=== PATIENT | female | born 1980 | race Two or more races ===

== ENCOUNTER 2020-06-04 20:34 | Emergency (ER) | payer BC, SELFPAY ==
[2020-06-04] VITALS (8 sets, daily range): BP systolic 108–153; BP diastolic 64–85; PULSE 73–96; RESP 16–18; TEMP 36.6; O2SAT 97–99; BMI 30.9
--- NOTE | 2020-06-04 20:58 | PC.NURSE ---
PT TO ROOM #13 IN W/C. PT ALERT, RESPIRATIONS EASY, N/L. SKIN W/D. PT CHG INTO GOWN AND AWAITING FOR MD'S EVAL.
--- NOTE | 2020-06-04 21:01 | PC.NURSE ---
IN ROOM FOR EVAL.
--- NOTE | 2020-06-04 21:04 | ECG_ITS ---
Test Reason : DIZZINESS Blood Pressure : / mmHG Vent. Rate : 084 BPM Atrial Rate : 084 BPM P-R Int : 146 ms QRS Dur : 082 ms QT Int : 394 ms P-R-T Axes : 021 000 017 degrees QTc Int : 465 ms Normal sinus rhythm Normal ECG When compared with ECG of 04-SEP-2019 22:23, No significant change was found Referred By: Tonya Simon Electronically Signed By:DAVID RUVALCABA
--- NOTE | 2020-06-04 21:06 | ED.DIZZY ---
HPI - Dizziness General Chief Complaint: Dizziness Stated Complaint: DIZZINESS - Time Seen by Provider: 06/04/20 21:03 Source: patient Mode of arrival: ambulatory Limitations: no limitations History of Present Illness HPI Narrative: 40 yo female seen at [facility] [place] - on aspirin and Fe for anemia here with a couple of hours of weakness/dizziness, no overt headache no CP/SOB denies OB complaints has not had issues during with BP - has had dehydration - on arrival her BPs are > 140, FHT in 140-150s. no vaginal bleeding MD elicited complaint: lightheadedness Onset (ago): hour(s) (few) Timing: gradual onset Severity: mild Description: lightheadedness Context: change in body position History of similar symptoms: Yes Exacerbating factors: movement/ambulation and change in body position Relieving factors: remaining still Associated symptoms: weakness Related Data Allergies Allergy/AdvReac Type Severity Reaction Status Date / Time Iodinated Contrast Media Allergy Anaphylaxis Verified 06/04/20 20:46 omeprazole [From Prilosec] Allergy Redness of Verified 06/04/20 20:46 Skin seafood Allergy Anaphylaxis Verified 06/04/20 20:46 Review of Systems Review of Systems: Constitutional : No Weight loss, No Fever, No Chills, No Fatigue, No Malaise ENT/Mouth : No sore throat, No Rhinorrhea Eyes: No Eye Pain, No Swelling, No Redness Cardiovascular : No Chest Pain, No SOB, No Dyspnea on Exertion, No Orthopnea, No Edema, No Palpitations Respiratory : No Cough, No Sputum, No Wheezing Gastrointestinal : No Nausea, No Vomiting, No Diarrhea, No Constipation, No abdominal Pain, No Hematochezia, No Melena Genitourinary : No Dysuria, No Urinary Frequency, No Hematuria, Musculoskeletal : No joint pain, No Myalgias, No Joint Swelling Skin : No Skin Lesions, No rash Neuro : pos Weakness, No Numbness, pos Dizziness, No Headache Psych : No Anxiety/Panic, No Depression Heme/Lymph: No Bruising, No Bleeding,No Lymphadenopathy Endocrine : No Polyuria, No Polydipsia All other systems reviewed and are negative [facility] Past Medical History Attestation statement: The following information was validated with the patient. Medical History (Updated 06/04/20 @ 23:50 by Tonya Simon DO) Anemia Hernia Surgical History Bariatric surgery status Tubal ligation status Social History Social History (Updated 06/04/20 @ 21:19 by Tonya Simon DO) Smoking Status: Never smoker Use of substances other than those prescribed or required for medical reasons: No Advance Directives: No Advance Directives Information Provided: No Physical Exam Vital Signs: Vital Signs: Last Vital Signs Temp 98 F 06/04/20 20:37 Pulse 73 06/04/20 23:57 Resp 16 06/04/20 23:57 BP 108/64 06/04/20 23:57 Pulse Ox 98 06/04/20 23:57 Body Mass Index 30.9 Appearance: Alert. Oriented X3. No acute distress. Eyes: Pupils equal, round and reactive to light. ENT: Pharynx normal. Neck: Normal inspection. Neck supple. CVS: Normal heart rate and rhythm. Pulses normal. Respiratory: No respiratory distress. Breath sounds normal. Abdomen: Soft and nontender. Skin: Skin warm and dry. Normal skin color. Normal skin turgor. Extremities: No lower extremity edema. No calf ttp Neuro: Oriented X 3. No motor deficit. No sensory deficit. Course Course Course Narrative: given her BPs and feeling lightheaded though denies headache will monitor BPs frequently currently BP 123/75 on recheck will keep in ED x 2 hours and recheck on repeat consistently low BPs at this time no headache, normal LFTs, ?initial anxiety reaction trend seems inconsistent with preeclampsia - will ambulate patient and see how she feels if she feels better, stable for DC, no CP/SOB to suggest PE, O2 sats normal, UA consistent with mild dehydration, her Hgb 9.1 she needs to follow up with her OB and start taking her supplements vs Fe infusion given her prior bariatric surgery feels much better walking stable for DC MDM - Dizziness MDM Narrative Medical decision making narrative: 40 yo female 23 weeks here with feeling lightheaded and weak she is anemic no CP/SOB no headache - BP initially high but likely anxiety, will hydrate and obtain EKG/labs, reassess, frequent BP checks - obtain LFTs, no LE edema, clear lungs Lab Data Result diagrams: 06/04/20 21:39 06/04/20 21:39 Labs: Lab Results 06/04/20 06/04/20 06/04/20 Range/Units 21:31 21:31 21:39 WBC 8.8 (4.8-10.8) X10*3/uL RBC 3.02 L (4.20-5.50) X10*6/uL Hgb 9.1 L (12.0-16.0) g/dl Hct 27.2 L (37-47) % MCV 90.1 (80-98) fL MCH 30.1 (27.0-33.0) pg MCHC 33.5 (31.0-35.0) g/dl RDW 13.9 (11.0-16.0) % Plt Count 270 (160-400) X10*3/uL MPV 9.7 (9.4-12.3) fL Immature Gran % (Auto) 0.5 H (0.0-0.4) % Neut % (Auto) 61.0 (45-73) % Lymph % (Auto) 30.5 (20-40) % Mccone % (Auto) 5.8 (2-11) % Eos % (Auto) 1.9 (0-4) % Baso % (Auto) 0.3 (0-2) % Lymph # (Auto) 2.7 (1.2-4.9) X10*3/uL Mccone # (Auto) 0.5 (0.1-1.2) X10*3/uL Eos # (Auto) 0.2 (0.0-0.4) X10*3/uL Baso # (Auto) 0.0 (0.0-0.2) X10*3/uL Abs Immat Gran (auto) 0.04 H (0.00-0.03) X10*3/uL Absolute Neuts (auto) 5.3 (2.0-8.3) X10*3/uL Absolute Nucleated RBC 0.000 (0.0-0.012) X10*3/uL Nucleated RBC % (auto) 0.0 (0.0-0.2) /100WBC Hold Blue Top Sodium (135-145) mmol/L Potassium (3.3-5.1) mmol/L Chloride (96-108) mmol/L Carbon Dioxide (22-29) mmol/L Anion Gap (12-20) BUN (9-16) mg/dL Creatinine (0.5-1.4) mg/dL Estim Creat Clear Calc Estimated GFR Random Glucose (60-115) mg/dL Calcium (8.4-10.2) mg/dL Magnesium (1.6-2.6) mg/dL Total Bilirubin (0.0-1.0) mg/dL Direct Bilirubin (0.0-0.5) mg/dL AST (5-31) U/L ALT (0-31) U/L Alkaline Phosphatase (39-117) U/L B-Natriuretic Peptide (<100) pg/mL Total Protein (6.5-8.0) g/dL Albumin (3.5-5.0) g/dL Urine Color YELLOW Urine Appearance CLEAR Urine pH 6.0 (5.0-8.0) Ur Specific [place] 1.015 (1.005-1.025) Urine Protein TRACE (NEG-TRACE) MG/DL Urine Glucose (UA) NEG (NEG) MG/DL Urine Ketones 5 (NEG) MG/DL Urine Blood 3+ H (NEG) Urine Nitrite NEG (NEG) Ur Leukocyte Esterase TRACE H (NEG) Urine RBC 5-9 H (0) /HPF Urine WBC 0-2 (0-4) /HPF Ur Squamous Epith Cells 1+ /LPF Urine Bacteria 1+ /LPF COVID-19 (CORDELIA) Negative (Negative) COVID-19 Clin Com See Note 06/04/20 06/04/20 06/04/20 Range/Units 21:39 21:39 21:39 WBC (4.8-10.8) X10*3/uL RBC (4.20-5.50) X10*6/uL Hgb (12.0-16.0) g/dl Hct (37-47) % MCV (80-98) fL MCH (27.0-33.0) pg MCHC (31.0-35.0) g/dl RDW (11.0-16.0) % Plt Count (160-400) X10*3/uL MPV (9.4-12.3) fL Immature Gran % (Auto) (0.0-0.4) % Neut % (Auto) (45-73) % Lymph % (Auto) (20-40) % Mccone % (Auto) (2-11) % Eos % (Auto) (0-4) % Baso % (Auto) (0-2) % Lymph # (Auto) (1.2-4.9) X10*3/uL Mccone # (Auto) (0.1-1.2) X10*3/uL Eos # (Auto) (0.0-0.4) X10*3/uL Baso # (Auto) (0.0-0.2) X10*3/uL Abs Immat Gran (auto) (0.00-0.03) X10*3/uL Absolute Neuts (auto) (2.0-8.3) X10*3/uL Absolute Nucleated RBC (0.0-0.012) X10*3/uL Nucleated RBC % (auto) (0.0-0.2) /100WBC Hold Blue Top SEE NOTE Sodium 136 (135-145) mmol/L Potassium 3.8 (3.3-5.1) mmol/L Chloride 107 (96-108) mmol/L Carbon Dioxide 19 L (22-29) mmol/L Anion Gap 14 (12-20) BUN 5 L (9-16) mg/dL Creatinine 0.60 (0.5-1.4) mg/dL Estim Creat Clear Calc 126.2 Estimated GFR > 60 Random Glucose 94 (60-115) mg/dL Calcium 8.4 (8.4-10.2) mg/dL Magnesium 1.9 (1.6-2.6) mg/dL Total Bilirubin 0.2 (0.0-1.0) mg/dL Direct Bilirubin < 0.2 (0.0-0.5) mg/dL AST 15 (5-31) U/L ALT 9 (0-31) U/L Alkaline Phosphatase 95 (39-117) U/L B-Natriuretic Peptide 13 (<100) pg/mL Total Protein 6.5 (6.5-8.0) g/dL Albumin 3.3 L (3.5-5.0) g/dL Urine Color Urine Appearance Urine pH (5.0-8.0) Ur Specific [place] (1.005-1.025) Urine Protein (NEG-TRACE) MG/DL Urine Glucose (UA) (NEG) MG/DL Urine Ketones (NEG) MG/DL Urine Blood (NEG) Urine Nitrite (NEG) Ur Leukocyte Esterase (NEG) Urine RBC (0) /HPF Urine WBC (0-4) /HPF Ur Squamous Epith Cells /LPF Urine Bacteria /LPF COVID-19 (CORDELIA) (Negative) COVID-19 Clin Com ECG Data Attestation: I personally reviewed and interpreted this ECG as follows: ECG interpretation date: 06/04/20 ECG interpretation time: 22:10 Interpretation: Rate: 84 Rhythm: NSR [place]: normal Normal P waves. Normal RAMA. Normal QRS complex. ST T wave : no DOMINIC, normal qTC: normal prior studies: no acute ischemia The study has been interpreted contemporaneously by me. . Discharge Plan Discharge Clinical Impression: Acute dehydration, Iron deficiency anemia Patient Disposition: Home, Self-Care Instructions: Dehydration (ED), Iron Deficiency Anemia (ED) Additional Instructions: return to ED for any worsening symptoms or concerns YOUR HEMOGLOBIN IS 9.1 YOU NEED TO TAKE IRON AND BE MONITORED CLOSELY BY YOUR OB - given your prior bariatric surgery you might not be able to absorb Iron as well and might require IV infusion Stand Alone Forms: Work/School Release
--- NOTE | 2020-06-04 21:14 | PC.NURSE ---
FHT X 2 152 AND 160 PER DOPPLER.
[2020-06-04] MEDS: 0.9 % Sodium Chloride 1,000 ML 999 ML IVCONT (21:30)
--- NOTE | 2020-06-04 21:45 | PC.NURSE ---
IV PLACED TO LAC, LABS DRAWN TO LAB. COVID SWAB OBTAINED AND URINE SAMPLE SENT. PT DENIES ANY COMPLAINTS. PT AWAITING FOR EKG. WILL CONTINUE TO MONITOR PT.
[2020-06-04 21:53] LABS: MANUAL DIFF FLAG NO
[2020-06-04 21:54] LABS: Glucose Urine UA NEG (NEG); Leukocyte Esterase Urine TRACE (NEG); Nitrite Urine NEG (NEG); Specific Gravity - Urine 1.015 (1.005-1.025); UACC Culture Trigger YES; Urine Blood 3+ (NEG); Urine Ketones 5 MG/DL (NEG); Urine Protein TRACE MG/DL (NEG-TRACE)
[2020-06-04 21:55] LABS: Appearance Urine CLEAR; Color Urine YELLOW
[2020-06-04 21:56] LABS: Basophils Percent Auto 0.3 % (0-2); Eosinophils Absolute Auto 0.2 X10*3/uL (0.0-0.4); Eosinophils Percent Auto 1.9 % (0-4); Hematocrit 27.2 % (37-47); Hemoglobin 9.1 g/dl (12.0-16.0); Imm Gran Abs Auto 0.04 X10*3/uL (0.00-0.03); Imm Gran Pct Auto 0.5 % (0.0-0.4); Lymphocytes Absolute Auto 2.7 X10*3/uL (1.2-4.9); Lymphocytes Percent Auto 30.5 % (20-40); Mean Corpuscular HGB Conc 33.5 g/dl (31.0-35.0); Mean Corpuscular Hemoglobin 30.1 pg (27.0-33.0); Mean Corpuscular Volume 90.1 fL (80-98); Mean Platelet Volume 9.7 fL (9.4-12.3); Monocytes Absolute Auto 0.5 X10*3/uL (0.1-1.2); Monocytes Percent Auto 5.8 % (2-11); Neutrophils Absolute Auto 5.3 X10*3/uL (2.0-8.3); Platelet Count 270 X10*3/uL (160-400); Red Blood Count 3.02 X10*6/uL (4.20-5.50); Red Cell Distribution Width 13.9 % (11.0-16.0); White Blood Count 8.8 X10*3/uL (4.8-10.8)
[2020-06-04 22:00] LABS: Bacteria Urine 1+ /LPF; Squamous Epithelial Cell Urine 1+ /LPF; WBC Urine 0-2 /HPF (0-4)
[2020-06-04 22:04] LABS: COVID-19 Test Negative (Negative); IDNOW Serial# 9DD0AD1C
[2020-06-04 22:23] LABS: Alanine Aminotransferase 9 U/L (0-31); Albumin Level 3.3 g/dL (3.5-5.0); Alkaline Phosphatase 95 U/L (39-117); Anion Gap 14 (12-20); Aspartate Amino Transferase 15 U/L (5-31); Bilirubin Direct < 0.2 mg/dL (0.0-0.5); Bilirubin Total 0.2 mg/dL (0.0-1.0); Blood Urea Nitrogen 5 mg/dL (9-16); Calcium 8.4 mg/dL (8.4-10.2); Carbon Dioxide 19 mmol/L (22-29); Chloride 107 mmol/L (96-108); Creatinine Clr Calc Pharmacy 126.2; Estimated Glomerular Filt Rate > 60; Glucose Random 94 mg/dL (60-115); Magnesium 1.9 mg/dL (1.6-2.6); Potassium 3.8 mmol/L (3.3-5.1); Sodium 136 mmol/L (135-145); Total Protein 6.5 g/dL (6.5-8.0)
[2020-06-04 22:24] LABS: B Type Natriuretic Peptide 13 pg/mL (<100)
== END 2020-06-05 00:05 | disposition home or self-care (01) ==
PROVIDERS: Emergency Provider Emergency Medicine; PCP Family Medicine
DX: E86.0 Dehydration (principal); D50.9 Iron deficiency anemia, unspecified; R42 Dizziness and giddiness; Z20.822 Contact with and (suspected) exposure to COVID-19
CPT/HCPCS: 36415; 80048; 80076; 81001; 81003; 83735; 83880; 85025; 87086; 87635; 93005; 96360; 99283; 99284

== ENCOUNTER 2022-05-22 14:35 | Outpatient (REF) | payer BC, SELFPAY ==
--- NOTE | ~2022-05-22 | US_ITS ---
EXAMINATION: US PELVIS CLINICAL INFORMATION: Abnormal uterine bleeding. COMPARISON: None TECHNIQUE: Ultrasound of the pelvis is performed using both transabdominal and transvaginal transducers along with Doppler. Transvaginal imaging is performed due to inadequate visualization transabdominally. FINDINGS: Uterus: The uterus is anteverted, anteflexed and measures 10.3 cm in length, 2.3 cm AP and 5.3 cm in transverse dimension. The double wall endometrial thickness is 1.4 cm. The uterus is smooth in contour and has normal myometrial echogenicity. No visible fibroid There are small nabothian cysts seen in the cervix. Adnexa: Both ovaries are visualized. There is normal color flow to the adnexa. There is no ovarian torsion. There is no pelvic ascites or fluid collection. Right ovary measures 4.0 x 1.8 x 2.4 cm and volume 10.1 mL. There is a dominant follicle measuring 2.1 x 1.7 x 1.7 cm and corpus luteal cyst measuring 1.2 x 1.1 x 1.3 cm. There is normal arterial and venous flow seen to the right ovary. Left ovary measures 5.8 x 3.9 x 4.4 cm and volume 58.1 mL. There is anechoic cyst with thin septation measuring 5.1 x 3.6 x 4.1 cm. Normal arterial and venous flow seen. There is no free fluid in the cul-de-sac. US/US pelvic and transvaginal IMPRESSION: Unremarkable uterus. Small nabothian cysts in the cervix. Small corpus luteal cyst right ovary. Complex cyst left ovary.
== END 2022-05-22 14:36 | disposition home or self-care (01) ==
LOC: HO.US 14:35
PROVIDERS: PCP Family Medicine; Visit Provider Family Medicine
DX: N92.6 Irregular menstruation, unspecified (principal)
CPT/HCPCS: 76830; 76856

== ENCOUNTER 2022-12-07 16:35 | Outpatient (REF) | payer BC, SELFPAY ==
[2022-12-07 17:43] LABS: MANUAL DIFF FLAG NO
[2022-12-07 18:01] LABS: Basophils Absolute Auto 0.1 X10*3/uL (0.0-0.2); Basophils Percent Auto 0.9 % (0-2); Eosinophils Absolute Auto 0.3 X10*3/uL (0.0-0.4); Hemoglobin 11.1 g/dl (12.0-16.0); Imm Gran Abs Auto 0.02 X10*3/uL (0.00-0.03); Imm Gran Pct Auto 0.3 % (0.0-0.4); Lymphocytes Absolute Auto 2.8 X10*3/uL (1.2-4.9); Mean Corpuscular HGB Conc 32.6 g/dl (31.0-35.0); Mean Corpuscular Hemoglobin 29.3 pg (27.0-33.0); Mean Corpuscular Volume 89.7 fL (80.0-98.0); Mean Platelet Volume 10.7 fL (9.4-12.3); Monocytes Absolute Auto 0.5 X10*3/uL (0.1-1.2); Monocytes Percent Auto 6.5 % (2-11); Neutrophils Absolute Auto 3.4 x10*3/uL (2.0-8.3); Neutrophils Percent Auto 48.3 % (45-73); Platelet Count 286 X10*3/uL (160-400); Red Blood Count 3.79 X10*6/uL (4.20-5.50); Red Cell Distribution Width 14.3 % (11.0-16.0); White Blood Count 7.1 X10*3/uL (4.8-10.8)
[2022-12-08 01:43] LABS: Alanine Aminotransferase 9 U/L (0-31); Albumin Level 4.1 g/dL (3.5-5.0); Alkaline Phosphatase 79 U/L (39-117); Anion Gap 10 (12-20); Aspartate Amino Transferase 15 U/L (5-31); Bilirubin Total < 0.1 mg/dL (0.0-1.0); Blood Urea Nitrogen 9 mg/dL (9-16); Calcium 8.7 mg/dL (8.4-10.2); Carbon Dioxide 25 mmol/L (22-29); Chloride 109 mmol/L (96-108); Estimated Glomerular Filt Rate > 60; Glucose Random 116 mg/dL (60-115); Potassium 4.3 mmol/L (3.3-5.1); Sodium 140 mmol/L (135-145); Total Protein 7.5 g/dL (6.5-8.0)
[2022-12-08 02:19] LABS: Folate 12.4 ng/mL (> or = 4.0); Vitamin B12 414 pg/mL (200-900)
== END 2022-12-07 16:36 | disposition home or self-care (01) ==
LOC: HO.HHCL 16:35
PROVIDERS: Visit Provider Family Medicine
DX: R41.3 Other amnesia (principal)
CPT/HCPCS: 36415; 80053; 82607; 82746; 85025

== ENCOUNTER 2023-01-05 15:53 | Outpatient (REF) | payer BC, SELFPAY ==
--- NOTE | ~2023-01-05 | MM_ITS ---
EXAMINATION: MM SCREENING DIGITAL BREAST TOMOSYNTHESIS, BILATERAL WITH BREAST IMPLANTS CLINICAL INFORMATION: Screening. Asymptomatic. COMPARISON: Mammography: This is a baseline mammogram. TECHNIQUE: Digital mammography is performed in craniocaudal and mediolateral oblique views along with computer-aided detection (CAD). Digital breast tomosynthesis is performed in implant-displaced craniocaudal and implant-displaced mediolateral oblique views along with computer-aided detection (CAD). Synthesized 2D images are generated from the tomosynthesis. FINDINGS: There are scattered areas of fibroglandular density (ACR BI-RADS breast composition Category b). There are bilateral, mammographically intact, retropectoral silicone breast implants. There are no significant masses, abnormal calcifications, or other abnormalities. MM/MM tomosynthesis screen imp BI IMPRESSION: There are no significant changes from prior study. ASSESSMENT: BI-RADS BI-RADS 1 - Negative RECOMMENDATION: Routine annual mammography screening. 1 year F/U This patient's information was entered into a reminder system with a target due date for their next mammogram.
== END 2023-01-05 15:54 | disposition home or self-care (01) ==
LOC: HO.MAMMO 15:53
PROVIDERS: PCP Family Medicine; Visit Provider Family Medicine
DX: Z12.31 Encounter for screening mammogram for malignant neoplasm of breast (principal)
CPT/HCPCS: 77063; 77067

== ENCOUNTER → 2023-01-05 16:30 | Outpatient (BNV) | payer BC, SELFPAY | PROVIDERS: PCP Family Medicine; Visit Provider Radiology Diagnostic Radiology | DX: Z12.31 Encounter for screening mammogram for malignant neoplasm of breast (principal) | CPT/HCPCS: 77063; 77067 ==

== ENCOUNTER 2023-01-11 13:33 | Outpatient (AMB) | payer BC, SELFPAY ==
[2023-01-11 13:46] VITALS: BP 135/85; PULSE 80; BMI 30.9
--- NOTE | 2023-01-11 13:46 | A.OFFVIS_ITS ---
Intake Vital Signs 01/11/23 13:46 Height 5 ft 4 in Weight 179 lb 14.355 oz BMI 30.9 BP 135/85 Blood Pressure Location Lt brachial Position Sitting Pulse 80 Intake Visit Reasons: [place] screening Intake Note: Yanely presents in office as a new.patient for a colonoscopy screening PT CC: pt reports having abdominal pain , bloating , constipation , Heartburn , 1st colo pt denies any other GI Issues Telecommunications Support Required: No Accompanied by: Self / Same As Patient Allergies Iodinated Contrast Media Allergy (Verified 01/11/23 13:47) Anaphylaxis omeprazole [From Prilosec] Allergy (Verified 01/11/23 13:47) Redness of Skin seafood Allergy (Verified 01/11/23 13:47) Anaphylaxis HPI [place] screening HPI Details 42 year old? female here today for pre c olonoscopy screening.? Patient was sent to us by her PCP.? This is her first colonoscopy screening.? Patient denies any gastrointestinal symptoms in the past or at present.? Patient reports long history of constipation uses Dulcolax tablet once a week. Only goes every several days. Denies any personal or family history of gastrointestinal disease, colon polyps, or cancer.? Denies history of difficulty with sedation or anesthesia in the past.? Patient does have a history of sleep apnea prior to losing her weight after laparoscopic sleeve gastrectomy. Patient lost over 50 lb and no longer needed to use CPAP machine. Denies any history of cardiac, r enal, pulmonary, or hepatic disease.?? No history of infectious? diseases like hepatitis A, B, C, HIV or tuberculosis.? Patient is not on any anticoagulation therapy. [facility] Medical History (Updated 06/06/20 @ 00:01 by Bear Roldan) Anemia Hernia Surgical History (Updated 01/11/23 @ 14:06 by Magaly Patterson [facility]) S/P laparoscopic sleeve gastrectomy History of abdominoplasty Tubal ligation status Bariatric surgery status Family History (Updated 01/11/23 @ 13:50 by Giovani Malloy) Mother HTN (hypertension) High cholesterol Social History (Updated 01/11/23 @ 13:50 by Giovani Malloy) Household Members: Family Alcohol intake: never Patient Tobacco Use Status: Current everyday Tobacco user Tobacco use type: Cigarette Cigarette Packs Per Day: 1 Cigarettes Per Day: 10 Years Smoked: 30yrs Smoked in Last 30 Days: Yes Use of substances other than those prescribed or required for medical reasons: No Review of Systems Const Denies weight gain and Denies weight loss ENT Reports no additional complaints, Denies dysphagia and Denies odynophagia Card Reports no additional complaints Resp Reports no additional complaints GI Denies abdominal pain, Denies belching, Denies melena, Denies bloating, Reports constipation, Denies dysphagia, Denies excessive flatus, Denies dyspepsia, Reports heartburn, Denies diarrhea, Denies loose stools, Denies nausea, Denies odynophagia and Denies vomiting Musc Reports no additional complaints Neuro Reports no additional complaints Psych Reports no additional complaints Endo Reports no additional complaints Physical Exam Vital Signs: Last Vital Signs Pulse 80 01/11/23 13:46 BP 135/85 01/11/23 13:46 BMI result Body Mass Index 30.9 Const General: healthy appearing, no acute distress and well developed Nutritional Appearance: obese Orientation/consciousness: patient oriented x3 HEENT Head: Yes normal to inspection, Yes normocephalic and Yes atraumatic Face and sinus: Yes normal facial exam Mouth: Normal oral and palatal mucosa present Throat: Yes posterior oropharynx normal, Yes tonsils normal and Yes uvula midline Eyes General: appearance normal, both eyes and all related structures Neck Neck: Yes normal visual inspection, Yes full ROM and Yes trachea midline Thyroid: Thyroid normal Resp Effort & Inspection: normal respiratory effort, able to speak in complete sentences, no tracheal deviation and symmetric chest movement Auscultation: clear to auscultation bilaterally Cardio Rate: regular rate Heart sounds: S1 normal heart sound present and S2 normal heart sound present GI Inspection: Yes normal to inspection, No distended and Yes obesity Palpation (GI): Soft to palpation, not firm, nontender and No hepatosplenomegaly present Auscultation: normal bowel sounds General: Yes no CVA tenderness Back/Spine/Pelvis Back: no CVA tenderness Skin General skin exam: elasticity normal, turgor normal and dry skin Neuro General: patient oriented x3 Psych Appearance: grossly normal Mental Status: mental status grossly normal Assessment & Plan Assessment & Plan (1) Screen for colon cancer: Code(s): Z12.11 - Encounter for screening for malignant neoplasm of colon Plan: Patient denies any GI, cardiac or respiratory symptoms.? Denies any issues with anesthesia in the past.? No history infectious diseases in the past or present.? Not on any anticoagulation therapy.? No family or personal history of colon cancer or polyps.? Patient denies melena, hematochezia, unintentional weight loss or ribbon like stools.? Discussed at length the pre-procedure,? prep, diet & medications as well as what to expect prior, during and after the procedure.?? Stressed the importance of good bowel prep. ?Recommended the use of Vaseline or Calmoseptine OTC & baby wipes with bowel movements to promote comfort.? ?Patient verbalizes understanding and agrees to plan of care.? She was given the opportunity to ask questions and all questions answered.? We will see her after the procedure.? Medications: New bisacodyl (Dulcolax (bisacodyl)) 10 mg (2 x 5 mg) PO BEDTIME 180 tabs 4RF polyethylene glycol 3350 (Miralax) As directed by gastroenterology department at [facility] 238 grams PO ONCE 238 grams 0RF Z12.11 - Encounter for screening for malignant neoplasm of colon Coding Level of Care Code New Pt Level 3 (03947) Diagnoses Screen for colon cancer Z12.11 Time Spent (min) 40 Comment 30 minutes spent with patient and additional 10 minutes spent her records
== END 2023-01-11 14:27 | disposition home or self-care (01) ==
PROVIDERS: PCP Family Medicine; Visit Provider Nurse Practitioner Family
DX: Z12.11 Encounter for screening for malignant neoplasm of colon (principal); Z01.818 Encounter for other preprocedural examination
CPT/HCPCS: S0285

== ENCOUNTER → 2023-01-11 13:33 | Outpatient (BNVA) | payer BC, SELFPAY | PROVIDERS: PCP Family Medicine; Visit Provider Nurse Practitioner Family ==

== ENCOUNTER 2023-05-05 08:57 | Day surgery (SDC) | payer BC, SELFPAY ==
--- NOTE | 2023-05-04 10:33 | HO.ANESPROP2 ---
Documented by User: Coby Landers NP 05/04/23 10:33 HPI - Anesthesia Eval Consult details Narrative: 43yo F for Colonoscopy [facility] Past Medical History Medical History (Updated 06/06/20 @ 00:01 by Background Daaniya) Anemia Hernia Family History Family History (Updated 01/11/23 @ 13:50 by Giovani Malloy) Mother HTN (hypertension) High cholesterol Surgical History Surgical History (Updated 05/05/23 @ 09:26 by Dejah Matthews RN) Hx of breast reduction, elective S/P laparoscopic sleeve gastrectomy History of abdominoplasty Tubal ligation status Bariatric surgery status Social History Social History (Updated 01/11/23 @ 13:50 by Giovani Malloy) Household Members: Family Alcohol intake: never Patient Tobacco Use Status: Current everyday Tobacco user Tobacco use type: Cigarette Cigarette Packs Per Day: 1 Cigarettes Per Day: 10 Years Smoked: 30yrs Are you DNR?: No Advance Directives: No Advance Directives Information Provided: Yes Nutrition Risks: No Nutritional Risk Meds Allergies Allergy/AdvReac Type Severity Reaction Status Date / Time Iodinated Contrast Media Allergy Anaphylaxis Verified 01/11/23 13:47 omeprazole [From Prilosec] Allergy Redness of Verified 01/11/23 13:47 Skin seafood Allergy Anaphylaxis Verified 01/11/23 13:47 Home Medications Medication Instructions Recorded Confirmed Last Taken Type No Known Home Meds 05/05/23 05/05/23 Unknown History Exam Pertinent Lab Results Pertinent Lab Results: Laboratory Tests 12/07/22 16:41 WBC 7.1 Hgb 11.1 L Hct 34.0 L Plt Count 286 Sodium 140 Potassium 4.3 Chloride 109 H Carbon Dioxide 25 BUN 9 Creatinine 1.00 Assessment and Plan Assessment Anesthesia Assessment: Chart Reviewed Documented by User: Odilia Santana MD 05/05/23 09:39 [facility] Past Medical History Medical History (Updated 06/06/20 @ 00:01 by Background Daaniya) Anemia Hernia Family History Family History (Updated 01/11/23 @ 13:50 by Giovani Malloy) Mother HTN (hypertension) High cholesterol Family history of problems with anesthesia: No Surgical History Surgical History (Updated 05/05/23 @ 09:26 by Dejah Matthews RN) Hx of breast reduction, elective S/P laparoscopic sleeve gastrectomy History of abdominoplasty Tubal ligation status Bariatric surgery status History of Problems with Anesthesia: No Social History Social History (Updated 01/11/23 @ 13:50 by Giovani Malloy) Household Members: Family Alcohol intake: never Patient Tobacco Use Status: Current everyday Tobacco user Tobacco use type: Cigarette Cigarette Packs Per Day: 1 Cigarettes Per Day: 10 Years Smoked: 30yrs Are you DNR?: No Advance Directives: No Advance Directives Information Provided: Yes Nutrition Risks: No Nutritional Risk Meds Allergies Allergy/AdvReac Type Severity Reaction Status Date / Time Iodinated Contrast Media Allergy Anaphylaxis Verified 01/11/23 13:47 omeprazole [From Prilosec] Allergy Redness of Verified 01/11/23 13:47 Skin seafood Allergy Anaphylaxis Verified 01/11/23 13:47 Home Medications Medication Instructions Recorded Confirmed Last Taken Type No Known Home Meds 05/05/23 05/05/23 Unknown History Exam Airway Mallampati Class: II (mulitple caps) TM Dist: >3cm Neck ROM: Full Heart: rrr Lungs: cta Assessment and Plan Assessment Anesthesia Assessment: Anesthesia Plan Discussed Final Anesthetic Review Family History of Problems with Anesthesia: No History of Problems with Anesthesia: No NPO: Yes ASA Class: II Final Preanesthetic Review: No Changes in Pt Med Stat, Meds/Allgs Chart Reviewed and Consent Obtained/Reviewed Patient Risk: Intermediate Procedure Risk: Intermediate Anesthetic Plan Anesthetic Plan: MAC: Disposition: Standard PACU
[2023-05-05 09:00] VITALS: BP 116/80; PULSE 85; RESP 20; TEMP 36.3; O2SAT 99; BMI 30.1
[2023-05-05] MEDS: Lactated Ringers 1,000 ML 100 ML IVCONT (09:24)
--- NOTE | 2023-05-05 09:35 | MHC.SHP ---
Pre-Procedural Eval Section A Date of Service: 05/05/23 Section B Chief Complaint: screening Relevant Family History (Specify if Yes): No Relevant Social History: Tobacco Use Present Medications: see Short Stay Collaborative assessment Medical History: No relevant PMH History of Previous Operations: Relevant previous surgery/procedure and date(s) (Hx of breast reduction, elective S/P laparoscopic sleeve gastrectomy History of abdominoplasty Tubal ligation status Bariatric surgery status) Allergies: Allergies Allergy/AdvReac Type Severity Reaction Status Date / Time Iodinated Contrast Media Allergy Anaphylaxis Verified 01/11/23 13:47 omeprazole [From Prilosec] Allergy Redness of Verified 01/11/23 13:47 Skin seafood Allergy Anaphylaxis Verified 01/11/23 13:47 Review of Systems Sugical H&P ROS: Negative: Constitution, Cardiovascular, Respiratory, Neurological, Psychiatric, Hem-Onc, Allergic/Immunologic, Gastrointestinal, Genitourinary, Musculoskeletal, Integumentary, Endocrine and Eyes/Ears/Nose/Throat Exam Surgical H&P Exam: Normal: HEENT, Normal: Heart, Normal: Lungs, Normal: Extremities, Normal: Abdomen, Normal: Skin and Normal: Neurological Plan Diagnosis/Plan: Unchanged I have reviewed the history and physical and performed a pertinent physical examination on my patient. No changes have occurred unless specified. Time Spent With Patient Time: Total time managing care of this patient today ____ minutes.
--- NOTE | 2023-05-05 10:09 | W.PM.OPN ---
Operative Note Operative Note Date of Service: 05/05/23 Narrative: Operative Information Procedure Description: Colonoscopy Indication: screening Anesthesia: MAC COLONOSCOPY Instrument: Olympus variable stiffness pediatric scope 190L Colonoscopy Monitoring: Vital signs and clinical assessment, continuous EKG monitoring, Pulse oximetry, Carbon Dioxide monitoring and blood pressure monitoring were done throughout the procedure. Colon withdrawal time was 8 minutes. Procedure: The patient was placed in the left lateral decubitis position and pre-procedure medications were administered. After a digital rectal examination of the ano-rectum, the video colonoscope was inserted into the rectum and advanced through the colon to the cecum/TI. The colonoscope was slowly withdrawn in a retrograde panoramic fashion and the colon mucosa was carefully examined including a retroflexed view of the rectum. Findings and interventions are described below. Procedure Difficulty: easy Findings: Terminal Ileum-normal Cecum:normal Ascending Colon: normal Transverse Colon -normal Descending Colon:normal Sigmoid Colon: normal Rectum: Retroflexion with small to medium internal hemorrhoids, grade I, 4-6 mm sessile polyps x 2 removed with cold snare Anorectum - normal Colon preparation: [place] Bowel Preparation Scale Right colon; 2 Transverse colon: 3 Left colon; 3 (0 = Unprepared colon segment with mucosa not seen due to solid stool that cannot be cleared. 1 = Portion of mucosa of the colon segment seen, but other areas of the colon segment not well seen due to staining, residual stool and/or opaque liquid. 2 = Minor amount of residual staining, small fragments of stool and/or opaque liquid, but mucosa of colon segment seen well. 3 = Entire mucosa of colon segment seen well with no residual staining, small fragments of stool or opaque liquid) Impression and Post Procedure Diagnosis: polyps internal hemorrhoids Plan: High fiber diet leaflet Avoid straining at stool, epsom salts and sitz bath, anusol supps or cream Repeat Colonoscopy in 5-7 years if adenomatous polyps, 10 yrs if hyperplastic or earlier if clinically indicated Above findings were reviewed with the patient and relevant handouts were provided if indicated.
[2023-05-05 10:41] VITALS: BP 111/70; PULSE 72; RESP 16; TEMP 36.2; O2SAT 97
[2023-05-05 10:56] VITALS: BP 116/68; PULSE 68; RESP 16; O2SAT 98
[2023-05-05 11:10] VITALS: BP 119/83; PULSE 84; RESP 16; TEMP 36.1; O2SAT 100
== END 2023-05-05 11:37 | disposition home or self-care (01) ==
PROVIDERS: PCP Family Medicine; Visit Provider Internal Medicine Gastroenterology
PROC: 0DJD8ZZ Inspection of Lower Intestinal Tract, Via Natural or Artificial Opening Endoscopic (ICD-10-PCS; CPT 45378; principal; 2023-05-05 10:40)
DX: Z12.11 Encounter for screening for malignant neoplasm of colon (principal); K62.1 Rectal polyp; K64.0 First degree hemorrhoids; K59.00 Constipation, unspecified; D64.9 Anemia, unspecified; K46.9 Unspecified abdominal hernia without obstruction or gangrene; Z79.899 Other long term (current) drug therapy; Z91.041 Radiographic dye allergy status; Z88.8 Allergy status to other drugs, medicaments and biological substances; Z98.51 Tubal ligation status; Z98.84 Bariatric surgery status; Z98.890 Other specified postprocedural states; F17.210 Nicotine dependence, cigarettes, uncomplicated
CPT/HCPCS: 45385; 88305; J2704

== ENCOUNTER → 2023-05-05 08:57 | Outpatient (BNV) | payer BC, SELFPAY | PROVIDERS: PCP Family Medicine; Visit Provider Internal Medicine Gastroenterology | DX: Z12.11 Encounter for screening for malignant neoplasm of colon (principal); K64.0 First degree hemorrhoids; D12.8 Benign neoplasm of rectum | CPT/HCPCS: 45385 ==

== ENCOUNTER 2023-11-24 14:23 | Outpatient (REF) | payer BC, SELFPAY ==
[2023-11-24 15:25] LABS: MANUAL DIFF FLAG NO
[2023-11-24 15:49] LABS: Basophils Absolute Auto 0.1 X10*3/uL (0.0-0.2); Basophils Percent Auto 0.8 % (0-2); Eosinophils Absolute Auto 0.3 X10*3/uL (0.0-0.4); Eosinophils Percent Auto 3.5 % (0-4); Hemoglobin 12.5 g/dl (12.0-16.0); Imm Gran Abs Auto 0.02 X10*3/uL (0.00-0.03); Imm Gran Pct Auto 0.3 % (0.0-0.4); Lymphocytes Absolute Auto 2.2 X10*3/uL (1.2-4.9); Lymphocytes Percent Auto 30.3 % (20-40); Mean Corpuscular HGB Conc 33.8 g/dl (31.0-35.0); Mean Corpuscular Hemoglobin 29.9 pg (27.0-33.0); Mean Corpuscular Volume 88.5 fL (80.0-98.0); Mean Platelet Volume 10.1 fL (9.4-12.3); Monocytes Absolute Auto 0.3 X10*3/uL (0.1-1.2); Monocytes Percent Auto 3.8 % (2-11); Neutrophils Absolute Auto 4.4 x10*3/uL (2.0-8.3); Neutrophils Percent Auto 61.3 % (45-73); Platelet Count 299 X10*3/uL (160-400); Red Blood Count 4.18 X10*6/uL (4.20-5.50); Red Cell Distribution Width 13.3 % (11.0-16.0); White Blood Count 7.1 X10*3/uL (4.8-10.8)
[2023-11-24 15:59] LABS: Estimated Average Glucose 105 mg/dL; Hemoglobin A1c % 5.3 % (<6.0)
[2023-11-24 16:23] LABS: Anion Gap 10 (12-20); Blood Urea Nitrogen 4 mg/dL (9-16); C Reactive Protein 0.52 mg/dL (< or = 0.50); Calcium 9.5 mg/dL (8.4-10.2); Carbon Dioxide 27 mmol/L (22-29); Chloride 106 mmol/L (96-108); Cholesterol 196 mg/dL (<200); Estimated Glomerular Filt Rate > 60; Glucose Random 90 mg/dL (60-115); HDL Cholesterol 40 mg/dL (>40); Iron 58 mcg/dL (30-160); LDL Cholesterol Calculated 126 mg/dL (<100); Percent Iron Saturation 22 % (15-50); Potassium 3.9 mmol/L (3.3-5.1); Sodium 139 mmol/L (135-145); Total Iron Binding Capacity 262 mcg/dL (228-428); Triglycerides 152 mg/dL (<150); Unsaturated Iron Binding 204 ug/dL
[2023-11-24 16:40] LABS: Ferritin 23 ng/mL (10-250); Insulin 7 uU/mL (2-29); TSH reflex Free T4 1.23 uIU/mL (0.32-4.0); Vitamin D 25-OH Total 28.6 ng/mL (>30)
[2023-11-24 16:52] LABS: Folate 9.2 ng/mL (> or = 4.0); Vitamin B12 410 pg/mL (200-900)
[2023-11-27 18:03] LABS: Zinc 66 mcg/dL (60-130)
[2023-11-29 21:03] LABS: Vitamin A 43 mcg/dL (38-98)
[2023-12-01 05:14] LABS: Vitamin B1 7 nmol/L (8-30)
== END 2023-11-24 14:24 | disposition home or self-care (01) ==
LOC: HO.LAB 14:23
PROVIDERS: PCP Family Medicine; Visit Provider Physician Assistant Surgical
DX: Z13.1 Encounter for screening for diabetes mellitus (principal); E66.9 Obesity, unspecified; D64.9 Anemia, unspecified; Z98.84 Bariatric surgery status
CPT/HCPCS: 36415; 80048; 80061; 82306; 82607; 82728; 82746; 83036; 83525; 83540; 84425; 84443; 84590; 84630; 85025; 86140

== ENCOUNTER 2023-11-24 14:23 | Outpatient (AMB) | payer BC, SELFPAY ==
--- NOTE | 2023-11-24 14:27 | A.OFFVIS_ITS ---
VS Expanded 11/24/23 14:38 BP 134/77 Blood Pressure Location Rt brachial Blood Pressure Position Sitting Pulse 75 Pulse Source Pulse Oximeter Temp 98.1 F Temperature Source Temporal Artery Scan Pulse Oximetry 98 Oxygen Delivery Method Room Air Height 5 ft 4 in Weight 177 lb 9.6 oz BMI 30.5 Body Fat % 39.1 Body Fat Mass 69.4 Fat Free Mass 108.0 Visceral Fat Rating 8.0 Body Water % 43.5 Body Water Mass 77.2 Muscle Mass/Score 102.6 Basal Metabolic Rate/Score 1,493 Intake Visit Reasons: (OV) PO LSG 2016 Prison Classification Counselor Required: No Allergies Iodinated Contrast Media Allergy (Verified 11/24/23 14:31) Anaphylaxis omeprazole [From Prilosec] Allergy (Verified 11/24/23 14:31) Redness of Skin seafood Allergy (Verified 11/24/23 14:31) Anaphylaxis Medication List - Last Reconciled 11/24/23 by ENMA Rader HPI Comments Details: Patient is a pleasant 43-year-old female who returns to the office today in follow-up. 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 She was last seen in the office in November 2017. At that time, her weight was 140.4 lb with a BMI of 24.1. Weight today is 177.6 lb with a BMI of 30.5. She states that she did not come to the office for several years due to COVID. She did experience a with twins, giving to 2 healthy babies approximately 3 years ago. She has had difficulty with weight loss since then. She was started on a low-dose of Wegovy but has not noticed any significant improvement. No MVI or nayeli +D. States her goal is to reach 140 pounds Meal plan: none Exercise plan: none, treadmill, bike and elliptical and weights at home. [facility] Medical History Delivery with history of Anemia Hernia Surgical History Hx of breast reduction, elective S/P laparoscopic sleeve gastrectomy History of abdominoplasty Tubal ligation status Bariatric surgery status Family History Mother HTN (hypertension) High cholesterol Social History Household Members: Family Alcohol intake: never Patient Tobacco Use Status: Current everyday Tobacco user Tobacco use type: Cigarette Cigarette Packs Per Day: 1 Cigarettes Per Day: 10 Years Smoked: 30yrs Physical Exam Vital Signs: Last Vital Signs Temp 98.1 F 11/24/23 14:38 Pulse 75 11/24/23 14:38 BP 134/77 11/24/23 14:38 Pulse Ox 98 11/24/23 14:38 Oxygen Delivery Method Room Air 11/24/23 14:38 BMI result Body Mass Index 30.5 Const General: healthy appearing and no acute distress Resp Effort & Inspection: normal respiratory effort Auscultation: clear to auscultation bilaterally Cardio Rate: regular rate Rhythm: regular rhythm GI Auscultation: normal bowel sounds Extrem General: Yes normal to inspection Assessment & Plan Assessment & Plan (1) Obesity (BMI 30-39.9): Code(s): E66.9 - Obesity, unspecified Category: Medical Plan: Patient was given a paper with a link to the [employer] niles and she will create her meal plan. We discussed the importance of adhering to the meal plan as well as exercising. She has multiple cardiovascular machines at home including stationary bike, treadmill, elliptical she was encouraged to increase exercise with a goal of burning 300 calories per day. We will additionally check postop labs. We talked about adding a multivitamin, however given no recent labs I will await further recommendations as she does report a history of iron deficiency. Additionally, I told her to stop the Wegovy injections. Orders: Orders Complete Blood Count Auto Diff Today E66.9 - Obesity, unspecified, Z98.84 - B ariatric surgery status Lipid Panel Today E66.9 - Obesity, unspecified, Z98.84 - Bariatric surgery status Vitamin B12 and Folate Today E66.9 - Obesity, unspecified, Z98.84 - Bariatric surgery status TSH reflex Free T4 Today E66.9 - Obesity, unspecified, Z98.84 - Bariatric surgery status Ferritin Today E66.9 - Obesity, unspecified, Z98.84 - Bariatric surgery status Basic Metabolic Panel Today E66.9 - Obesity, unspecified, Z98.84 - Bariatric surgery status Insulin Today E66.9 - Obesity, unspecified, Z98.84 - Bariatric surgery status Hemoglobin A1c Today E66.9 - Obesity, unspecified, Z98.84 - Bariatric surgery status IRON PROFILE Today E66.9 - Obesity, unspecified, Z98.84 - Bariatric surgery status Zinc Today E66.9 - Obesity, unspecified, Z98.84 - Bariatric surgery status C Reactive Protein Today E66.9 - Obesity, unspecified, Z98.84 - Bariatric surgery status Vitamin B1 Today E66.9 - Obesity, unspecified, Z98.84 - Bariatric surgery status Vitamin A Today E66.9 - Obesity, unspecified, Z98.84 - Bariatric surgery status Vitamin D 25-OH Total Today E66.9 - Obesity, unspecified, Z98.84 - Bariatric surgery status
[2023-11-24 14:38] VITALS: BP 134/77; PULSE 75; TEMP 36.7; O2SAT 98; BMI 30.5
== END 2023-11-24 15:10 | disposition home or self-care (01) ==
PROVIDERS: PCP Family Medicine; Visit Provider Physician Assistant Surgical
DX: E66.9 Obesity, unspecified (principal); Z68.30 Body mass index [BMI] 30.0-30.9, adult
CPT/HCPCS: 99214

== ENCOUNTER 2024-01-03 11:55 | Outpatient (AMB) | payer BC, SELFPAY ==
--- NOTE | 2024-01-03 11:23 | A.OFFVIS_ITS ---
VS Expanded 01/03/24 11:41 Height 5 ft 4 in Weight 174 lb 4 oz BMI 29.9 Intake Visit Reasons: (TV) PO LSG 2016 Order Puller Required: No Allergies Iodinated Contrast Media Allergy (Verified 11/24/23 14:31) Anaphylaxis omeprazole [From Prilosec] Allergy (Verified 11/24/23 14:31) Redness of Skin seafood Allergy (Verified 11/24/23 14:31) Anaphylaxis Medication List - Last Reconciled 01/03/24 by ENMA Rader cholecalciferol (vitamin D3) 125 mcg PO DAILY 90 days thiamine HCl (vitamin B1) 100 mg PO DAILY 90 days HPI Comments Details: Patient is a pleasant 43-year-old female who returns to the office today in follow-up. 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 She had not been seen in the office since November 2017 and then most recently last month. She was restarted on a meal plan and exercise plan. Weight today is 174.4 lb with a BMI of 29.9. She states that she did not come to the office for several years due to COVID. She did experience a with twins, giving to 2 healthy babies approximately 3 years ago. She has had difficulty with weight loss since then. She was started on a low-dose of Wegovy but has not noticed any significant improvement. No MVI or nayeli +D. States her goal is to reach 140 pounds. Using the [email or web address] niles. She was following the plans but then none over the last couple weeks. She reports overall generalized increased anxiety. She feels as though this is pattern behavior and she will show some returned to the meal plan. no evidence of iron- deficiency however did have low vitamin-D and B1, these were replaced. Meal plan: sculptnation (30 gm/scoop), 1/2 scoop mixed in 8 water x 3 6 forks protein Exercise plan: none, treadmill, bike and elliptical and weights at home. REPLACED BY [facility] Medical History Delivery with history of Anemia Hernia Surgical History Hx of breast reduction, elective S/P laparoscopic sleeve gastrectomy History of abdominoplasty Tubal ligation status Bariatric surgery status Family History Mother HTN (hypertension) High cholesterol Social History Household Members: Family Alcohol intake: never Patient Tobacco Use Status: Current everyday Tobacco user Tobacco use type: Cigarette Cigarette Packs Per Day: 1 Cigarettes Per Day: 10 Years Smoked: 30yrs Telehealth Telehealth Telehealth Platform: Telephone Location of provider rendering services: practice address Location of patient: address on file Patient Identification confirmed using: Name, : Yes Telehealth method: voice only Patient verbally consented to treatment: Yes Patient verbally consented to billing insurance company: Yes Patient informed of any privacy concerns related to visit: Yes Minutes spent on Phone/Video with Pt.: 15 Assessment & Plan Assessment & Plan (1) Overweight (BMI 25.0-29.9): Code(s): E66.3 - Overweight Category: Medical Plan: Encouraged to follow the meal plan as directed. Encouraged to start exercising. Encouraged to text weekly with any questions as well as her weight. Follow-up in the office in approximately 1 month.
[2024-01-03 11:41] VITALS: BMI 29.9
== END 2024-01-03 11:58 | disposition home or self-care (01) ==
LOC: HO.HBS 11:55
PROVIDERS: PCP Family Medicine; Visit Provider Physician Assistant Surgical
DX: E66.3 Overweight (principal)
CPT/HCPCS: 99213

== ENCOUNTER → 2024-01-03 11:55 | Outpatient (BNVA) | payer BC, SELFPAY | PROVIDERS: PCP Family Medicine; Visit Provider Physician Assistant Surgical | DX: E66.9 Obesity, unspecified (principal); Z98.84 Bariatric surgery status ==

== ENCOUNTER 2024-01-11 15:46 | Outpatient (REF) | payer BC, SELFPAY ==
--- NOTE | ~2024-01-11 | MM_ITS ---
EXAMINATION: MM SCREENING DIGITAL BREAST TOMOSYNTHESIS, BILATERAL CLINICAL INFORMATION: Screening. Asymptomatic. COMPARISON: Mammography: Comparison is made with relevant avialable priors. TECHNIQUE: Digital mammography is performed in craniocaudal and mediolateral oblique views along with computer-aided detection (CAD). Digital breast tomosynthesis is performed in implant-displaced craniocaudal and implant-displaced mediolateral oblique views along with computer-aided detection (CAD). FINDINGS: There are scattered areas of fibroglandular density (ACR BI-RADS breast composition Category b). Bilateral retropectoral silicone implants are normal appearing. There are no significant masses, abnormal calcifications, or other abnormalities. MM/MM tomosynthesis screen imp BI IMPRESSION: There are no significant changes from prior study. ASSESSMENT: BI-RADS BI-RADS 2 - Benign Findings RECOMMENDATION: Routine annual mammography screening. 1 year F/U This patient's information was entered into a reminder system with a target due date for their next mammogram. Electronically signed by: Alina Pryor DO 01/25/2024 10:31 AM EDT
== END 2024-01-11 15:47 | disposition home or self-care (01) ==
LOC: HO.MAMMO 15:46
PROVIDERS: PCP Family Medicine; Visit Provider Family Medicine
DX: Z12.31 Encounter for screening mammogram for malignant neoplasm of breast (principal)
CPT/HCPCS: 77063; 77067

== ENCOUNTER → 2024-01-11 16:00 | Outpatient (BNV) | payer BC, SELFPAY | PROVIDERS: PCP Family Medicine; Visit Provider Internal Medicine | DX: Z12.31 Encounter for screening mammogram for malignant neoplasm of breast (principal) | CPT/HCPCS: 77063; 77067 ==

== ENCOUNTER 2024-05-13 09:33 | Outpatient (REF) | payer BC, SELFPAY ==
[2024-05-13 09:50] LABS: MANUAL DIFF FLAG NO
[2024-05-13 10:31] LABS: Basophils Absolute Auto 0.1 X10*3/uL (0.0-0.2); Basophils Percent Auto 0.8 % (0-2); Eosinophils Absolute Auto 0.3 X10*3/uL (0.0-0.4); Eosinophils Percent Auto 4.2 % (0-4); Hematocrit 36.8 % (37.0-47.0); Hemoglobin 12.8 g/dl (12.0-16.0); Imm Gran Abs Auto 0.01 X10*3/uL (0.00-0.03); Imm Gran Pct Auto 0.1 % (0.0-0.4); Lymphocytes Absolute Auto 2.8 X10*3/uL (1.2-4.9); Lymphocytes Percent Auto 39.7 % (20-40); Mean Corpuscular HGB Conc 34.8 g/dl (31.0-35.0); Mean Corpuscular Hemoglobin 30.7 pg (27.0-33.0); Mean Corpuscular Volume 88.2 fL (80.0-98.0); Mean Platelet Volume 10.6 fL (9.4-12.3); Monocytes Absolute Auto 0.4 X10*3/uL (0.1-1.2); Monocytes Percent Auto 5.8 % (2-11); Neutrophils Absolute Auto 3.5 x10*3/uL (2.0-8.3); Neutrophils Percent Auto 49.4 % (45-73); Platelet Count 242 X10*3/uL (160-400); Red Blood Count 4.17 X10*6/uL (4.20-5.50); Red Cell Distribution Width 13.6 % (11.0-16.0); White Blood Count 7.1 X10*3/uL (4.8-10.8)
[2024-05-13 10:41] LABS: Estimated Average Glucose 105 mg/dL; Hemoglobin A1C 112.9423 umol/L; Hemoglobin A1c % 5.3 % (<6.0); Total Hemoglobin (HGBA1C) 3328.3698 umol/L
[2024-05-13 11:23] LABS: Alanine Aminotransferase 15 U/L (0-31); Albumin Level 4.3 g/dL (3.5-5.0); Alkaline Phosphatase 61 U/L (39-117); Anion Gap 9 (12-20); Aspartate Amino Transferase 17 U/L (5-31); Bilirubin Total 0.4 mg/dL (0.0-1.0); Blood Urea Nitrogen 8 mg/dL (9-16); Calcium 9.2 mg/dL (8.4-10.2); Carbon Dioxide 26 mmol/L (22-29); Chloride 109 mmol/L (96-108); Cholesterol 182 mg/dL (<200); Estimated Glomerular Filt Rate > 60; Glucose Random 89 mg/dL (60-115); HDL Cholesterol 40 mg/dL (>40); LDL Cholesterol Calculated 121 mg/dL (<100); Potassium 4.1 mmol/L (3.3-5.1); Sodium 140 mmol/L (135-145); Triglycerides 107 mg/dL (<150)
[2024-05-13 11:40] LABS: TSH reflex Free T4 1.71 uIU/mL (0.32-4.0); Vitamin D 25-OH Total 26.2 ng/mL (>30)
== END 2024-05-13 09:34 | disposition home or self-care (01) ==
LOC: HO.LAB 09:33
PROVIDERS: PCP Family Medicine
DX: Z00.00 Encounter for general adult medical examination without abnormal findings (principal); Z13.220 Encounter for screening for lipoid disorders; Z13.1 Encounter for screening for diabetes mellitus; Z13.29 Encounter for screening for other suspected endocrine disorder; E55.9 Vitamin D deficiency, unspecified
CPT/HCPCS: 36415; 80053; 80061; 82306; 83036; 84443; 85025

== ENCOUNTER 2024-09-30 19:22 | Emergency (ER) | payer BC, SELFPAY ==
--- NOTE | ~2024-09-30 | XR_ITS ---
CLINICAL HISTORY: L upper back pain sob 2 view chest x-ray Comparison: None Findings: No consolidation, pleural effusion or pneumothorax. Normal size heart. No acute fracture. Nonspecific prominent gaseous distention of the splenic flexure. There are multiple surgical clips in the left upper quadrant. There are bilateral breast prostheses. IMPRESSION: No acute cardiopulmonary process. This document has been electronically signed by: Arielle Hays DO on 09/30/2024 21:03:20
[2024-09-30 19:33] VITALS: BP 125/75; PULSE 84; RESP 16; TEMP 36.8; O2SAT 99; BMI 23.8
--- NOTE | 2024-09-30 19:34 | ED.BACK ---
HPI - Back Pain/Injury General Chief Complaint: Back Pain/Injury Stated Complaint: sob,upper back pain Time Seen by Provider: 09/30/24 23:13 Source: patient Mode of arrival: ambulatory Limitations: no limitations History of Present Illness ED Provider: HPI Narrative: Patient complaining of pain in the rhomboids and upper back area started earlier today also has pain in her left arm and taking deep breaths no cough no shortness of breath no injury Related Data Previous Rx's ?Medication ?Instructions ?Recorded cholecalciferol (vitamin D3) 125 125 mcg PO DAILY 90 days #90 caps 11/25/23 mcg (5,000 unit) capsule thiamine HCl (vitamin B1) 100 mg 100 mg PO DAILY 90 days #90 tabs 12/01/23 tablet Allergies Allergy/AdvReac Type Severity Reaction Status Date / Time Iodinated Contrast Media Allergy Anaphylaxis Verified 09/30/24 19:36 omeprazole [From Prilosec] Allergy Redness of Verified 09/30/24 19:36 Skin seafood Allergy Anaphylaxis Verified 09/30/24 19:36 Review of Systems Review of Systems: Yes all other systems are reviewed and are negative PMFSH Past Medical History Medical History Delivery with history of Anemia Hernia Surgical History Hx of breast reduction, elective S/P laparoscopic sleeve gastrectomy History of abdominoplasty Tubal ligation status Bariatric surgery status Family History Family History Mother HTN (hypertension) High cholesterol Social History Social History Household Members: Family Alcohol intake: never Patient Tobacco Use Status: Current everyday Tobacco user Tobacco use type: Cigarette Cigarette Packs Per Day: 1 Cigarettes Per Day: 10 Years Smoked: 30yrs Smoked in Last 30 Days: No Use of substances other than those prescribed or required for medical reasons: No Advance Directives: Yes Advance Directives Information Provided: Yes Advance Directives on File: No Do you have a plan to hurt others: No Plan Patient : No Physical Exam Vital Signs: Vital Signs: Last Vital Signs Temp 98.6 F 10/01/24 01:15 Pulse 79 10/01/24 01:15 Resp 17 10/01/24 01:15 BP 106/62 10/01/24 01:15 Pulse Ox 98 10/01/24 01:15 O2 Del Method Room Air 10/01/24 01:15 BMI result Body Mass Index 23.8 Appearance: Alert. Oriented X3. No acute distress. Eyes: PERRLA, No Nystagmus ENT: Pharynx normal. Oral Mucosa moist Neck: Normal inspection. Neck supple. CVS: Normal heart rate and rhythm. Pulses normal. Respiratory: No respiratory distress. Equal air entry bilateral, no wheezing/rales/rhonchi Abdomen: Soft and nontender. Bowel sounds are present, no mass palpable, no CVA tenderness Skin: Skin warm and dry. Normal skin color. Normal skin turgor. Extremities: No lower extremity edema. No calf tenderness Back: Tenderness left rhomboids area Neuro: Oriented X 3. No motor deficit. No sensory deficit.No cerebellar signs , cranial nerves II-XII intact Course Course Course Narrative: This is a Rapid Medical Exam performed in triage by Ayana Kay PA-C. Full HPI, ROS and PE to be performed by primary ED provider. 44 yo F presenting to the ED c/o L upper back pain x waking this AM with SOB & inability to take full breath 2/2 pain. denies urinary sx or trauma. +smoking. denies hx clots, OCPs, travel PE: pain not reproducible to palpation, No CVAT, appears uncomfortable Plan: EKG, labs, CXR, UA Medications Administered Discontinued Medications Generic Name Dose Route Start Last Admin Trade Name Dangelo PRN Reason Stop Dose Admin Ibuprofen 600 mg 10/01/24 00:48 10/01/24 00:58 Ibuprofen 600 Mg Tablet PO 10/01/24 00:49 Not Given ONCE ONE Medical Decision Making Medical Decision Making [facility] Narrative: Patient with the upper left back pain at rhomboids area workup is negative D-dimer negative for PE chest x-ray also negative will discharge patient home on muscle relaxant and pain medication Differential Diagnosis Differential Diagnoses: The differential diagnosis associated with the presentation includes Pneumonia/muscular/PE/pleurisy Lab Data [facility] Lab Attestation statement: I reviewed the patient's lab results. 09/30/24 19:58 09/30/24 19:58 Labs: Lab Results 09/30/24 09/30/24 09/30/24 Range/Units 19:57 19:58 20:32 WBC 7.1 (4.8-10.8) X10*3/uL RBC 3.66 L (4.20-5.50) X10*6/uL Hgb 11.5 L (12.0-16.0) g/dl Hct 32.4 L (37.0-47.0) % MCV 88.5 (80.0-98.0) fL MCH 31.4 (27.0-33.0) pg MCHC 35.5 H (31.0-35.0) g/dl RDW 13.4 (11.0-16.0) % Plt Count 224 (160-400) X10*3/uL MPV 10.0 (9.4-12.3) fL Immature Gran % (Auto) 0.1 (0.0-0.4) % Neut % (Auto) 49.4 (45-73) % Lymph % (Auto) 41.4 H (20-40) % [place] % (Auto) 4.6 (2-11) % Eos % (Auto) 3.5 (0-4) % Baso % (Auto) 1.0 (0-2) % Lymph # (Auto) 3.0 (1.2-4.9) X10*3/uL [place] # (Auto) 0.3 (0.1-1.2) X10*3/uL Eos # (Auto) 0.3 (0.0-0.4) X10*3/uL Baso # (Auto) 0.1 (0.0-0.2) X10*3/uL Abs Immat Gran (auto) 0.01 (0.00-0.03) X10*3/uL Absolute Neuts (auto) 3.5 (2.0-8.3) x10*3/uL Absolute Nucleated RBC 0.000 (0.0-0.012) X10*3/uL Nucleated RBC % (auto) 0.0 (0.0-0.2) /100WBC PT 12.7 H (10.9-12.4) SEC INR 1.1 (0.9-1.1) D-Dimer High Sensitivty < 150 NG/ML Sodium 139 (135-145) mmol/L Potassium 3.8 (3.3-5.1) mmol/L Chloride 107 (96-108) mmol/L Carbon Dioxide 25 (22-29) mmol/L Anion Gap 11 L (12-20) BUN 7 L (9-16) mg/dL Creatinine 0.82 (0.5-1.4) mg/dL Estim Creat Clear Calc 74.0 Estimated GFR > 60 Random Glucose 98 (60-115) mg/dL Calcium 9.2 (8.4-10.2) mg/dL Magnesium 2.0 (1.6-2.6) mg/dL Total Bilirubin 0.2 (0.0-1.0) mg/dL Direct Bilirubin < 0.2 (0.0-0.5) mg/dL AST 23 (5-31) U/L ALT 13 (0-31) U/L Alkaline Phosphatase 62 (39-117) U/L Troponin I High Sens < 2.7 (<3.5-17.0) ng/L B-Natriuretic Peptide < 10 (<100) pg/mL Total Protein 7.3 (6.5-8.0) g/dL Albumin 4.3 (3.5-5.0) g/dL Lipase 17 (8-78) U/L Beta HCG, Quant < 2 mIU/mL Urine Color Yellow Urine Appearance Clear Urine pH 7.0 (5.0-9.0) Ur Specific [place] 1.010 (1.005-1.025) Urine Protein Negative (Neg-Trace) mg/dL Urine Glucose (UA) Negative (Negative) mg/dL Urine Ketones Negative (Negative) mg/dL Urine Blood Trace H (Negative) Urine Nitrite Negative (Negative) Ur Leukocyte Esterase Negative (Negative) Urine RBC 3-5 H (0-2) /HPF Urine WBC 0-5 (0-5) /HPF Ur Squamous Epith Cells 0-2 (0-2) /HPF Urine Bacteria None Seen (None Seen) Hyaline Casts 0-2 (0-2) /LPF Discharge Plan Discharge Clinical Impression: Thoracic back pain Patient Disposition: Home, Self-Care Instructions: Thoracic Pain (ED) Additional Instructions: Your left back pain is likely muscular take Tylenol/ibuprofen for pain If the pain continues follow up with your PCP for further management including CT scan Prescriptions: No Action cholecalciferol (vitamin D3) 125 mcg (5,000 unit) capsule 125 mcg PO DAILY 90 Days Qty: 90 0RF thiamine HCl (vitamin B1) 100 mg tablet 100 mg PO DAILY 90 Days Qty: 90 0RF Interventions: ED Discharge Assessment Last Done: 10/01/24 01:15 Discharge Date/Time: 10/01/24 01:16 Print Language: Argentine
--- NOTE | 2024-09-30 19:37 | ECG_ITS ---
Test Reason : BACK PAIN Blood Pressure : */* mmHG Vent. Rate : 70 BPM Atrial Rate : 70 BPM P-R Int : 152 ms QRS Dur : 70 ms QT Int : 370 ms P-R-T Axes : 3 8 16 degrees QTcB Int : 399 ms Normal sinus rhythm Normal ECG When compared with ECG of 04-Jun-2020 22:06, QT has shortened Referred By: Ayana Kay Electronically Signed By: DAVID RUVALCABA
[2024-09-30 20:01] LABS: MANUAL DIFF FLAG NO
[2024-09-30 20:02] LABS: Basophils Absolute Auto 0.1 X10*3/uL (0.0-0.2); Eosinophils Absolute Auto 0.3 X10*3/uL (0.0-0.4); Eosinophils Percent Auto 3.5 % (0-4); Hematocrit 32.4 % (37.0-47.0); Hemoglobin 11.5 g/dl (12.0-16.0); Imm Gran Abs Auto 0.01 X10*3/uL (0.00-0.03); Imm Gran Pct Auto 0.1 % (0.0-0.4); Lymphocytes Percent Auto 41.4 % (20-40); Mean Corpuscular HGB Conc 35.5 g/dl (31.0-35.0); Mean Corpuscular Hemoglobin 31.4 pg (27.0-33.0); Mean Corpuscular Volume 88.5 fL (80.0-98.0); Monocytes Absolute Auto 0.3 X10*3/uL (0.1-1.2); Monocytes Percent Auto 4.6 % (2-11); Neutrophils Absolute Auto 3.5 x10*3/uL (2.0-8.3); Neutrophils Percent Auto 49.4 % (45-73); Platelet Count 224 X10*3/uL (160-400); Red Blood Count 3.66 X10*6/uL (4.20-5.50); Red Cell Distribution Width 13.4 % (11.0-16.0); White Blood Count 7.1 X10*3/uL (4.8-10.8)
[2024-09-30 20:09] LABS: INTERNATIONAL NORM RATIO 1.1 (0.9-1.1); Prothrombin Time 12.7 SEC (10.9-12.4)
[2024-09-30 20:26] LABS: Alanine Aminotransferase 13 U/L (0-31); Albumin Level 4.3 g/dL (3.5-5.0); Alkaline Phosphatase 62 U/L (39-117); Anion Gap 11 (12-20); Aspartate Amino Transferase 23 U/L (5-31); Bilirubin Direct < 0.2 mg/dL (0.0-0.5); Bilirubin Total 0.2 mg/dL (0.0-1.0); Blood Urea Nitrogen 7 mg/dL (9-16); Calcium 9.2 mg/dL (8.4-10.2); Carbon Dioxide 25 mmol/L (22-29); Chloride 107 mmol/L (96-108); Estimated Glomerular Filt Rate > 60; Glucose Random 98 mg/dL (60-115); Lipase 17 U/L (8-78); Potassium 3.8 mmol/L (3.3-5.1); Sodium 139 mmol/L (135-145); Total Protein 7.3 g/dL (6.5-8.0)
[2024-09-30 20:33] LABS: HCG Quantitative < 2 mIU/mL; Troponin-I High Sensitivity < 2.7 ng/L (<3.5-17.0)
[2024-09-30 20:40] LABS: B Type Natriuretic Peptide < 10 pg/mL (<100)
[2024-09-30 20:41] LABS: Appearance Urine Clear; Color Urine Yellow; Glucose Urine UA Negative (Negative); Leukocyte Esterase Urine Negative (Negative); Nitrite Urine Negative (Negative); UMIC TRIGGER UACC YES; Urine Blood Trace (Negative); Urine Ketones Negative (Negative); Urine Protein Negative (Neg-Trace)
[2024-09-30 20:46] LABS: Bacteria Urine None Seen (None Seen); Hyaline Casts Urine 0-2 /LPF (0-2); Squamous Epithelial Cell Urine 0-2 /HPF (0-2); WBC Urine 0-5 /HPF (0-5)
[2024-10-01 00:52] LABS: D Dimer High Sensitivity < 150 NG/ML
--- NOTE | 2024-10-01 00:58 | PC.NURSE ---
attempted to medicate pt per jun, pt efused ibuprofen at this time, states she does not need it
[2024-10-01 01:15] VITALS: BP 106/62; PULSE 79; RESP 17; TEMP 37; O2SAT 98
== END 2024-10-01 01:16 | disposition home or self-care (01) ==
PROVIDERS: Physician Assistant; Emergency Provider Internal Medicine; PCP Family Medicine
DX: M54.6 Pain in thoracic spine (principal); M79.602 Pain in left arm
CPT/HCPCS: 36415; 71046; 80048; 80076; 81001; 83690; 83735; 83880; 84484; 84702; 85025; 85379; 85610; 93005; 99283; 99285

== ENCOUNTER → 2024-09-30 19:37 | Outpatient (BNV) | payer BC, SELFPAY | PROVIDERS: PCP Family Medicine; Visit Provider Radiology Diagnostic Radiology | DX: M54.6 Pain in thoracic spine (principal); R06.02 Shortness of breath | CPT/HCPCS: 71046 ==

== ENCOUNTER → 2024-09-30 19:37 | Outpatient (BNV) | payer BC, SELFPAY | PROVIDERS: Emergency Provider Internal Medicine; PCP Family Medicine; Visit Provider Internal Medicine | DX: M54.9 Dorsalgia, unspecified (principal) | CPT/HCPCS: 93010 ==

== ENCOUNTER 2024-10-10 09:45 | Outpatient (REF) | payer BC, SELFPAY ==
--- NOTE | 2024-10-10 09:49 | EMG_ITS ---
Right tibial and peroneal motor studies were performed. Right superficial peroneal, sural, and median and lateral mixed plantar sensory studies were performed. Tibial H-reflex was performed, and needle examination was performed. 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 MD DOREEN Norman/GARRETT / [id number]
--- OUTSIDE RECORDS SUMMARY | 2024-10-10 10:48 | XMS_ITS | Clinical Summary ---
Author Organization [employer] Address [address] [facility] 7 [place] [address] Care Team Providers Care Airbrush Painter Name Role Phone Daniela Salmon MD Primary Care Provider [phone] Allergies Active Allergy Reactions Criticality Noted Date Comments Darragh-Containing Products Hives 04/28/2022 Egg-Derived Products 06/07/2017 Other reaction(s): Hives / Skin Rash Iodine Omeprazole Shortness of breath High 06/07/2017 Other reaction(s): Trouble Breathing , Trouble Breathing Shellfish Allergy 04/06/2022 Medications cholecalciferol (Vitamin D-3) 25 MCG (1000 UT) tablet Take 1 capsule by mouth. 11/20/2020 Active topiramate (Topamax) 25 MG tablet Take 1 tablet (25 mg) by mouth in the morning. 30 tablet 11 08/03/2023 Active SUMAtriptan (Imitrex) 50 MG tablet Take 1 tablet (50 mg) by mouth 1 (one) time if needed for migraine. May repeat dose once in 2 hours if no relief. Do not exceed 2 doses in 24 hours. 9 tablet 1 08/03/2023 Active Semaglutide-Gee ght Management 0.25 MG/0.5ML solution auto-injector Inject 0.5 mL under the skin 1 (one) time per week. 2 mL 08/15/2023 Active Active Problems Problem Noted Date Diagnosed Date Numbness of right foot 09/14/2024 Assessment & Plan (09/14/2024 10:45 AM EDT): - Evaluate with nerve conduction test - Will check electrolytes and vitamin - Recommended to try pickle juice - Will refer to equipment operat0r - Consider evaluation for circulation if all of the tests are non-diagnostic Irregular menstruation 09/01/2022 Assessment & Plan (12/13/2022 7:02 AM EDT): US in Apr 2022 showed ovarian cyst and borderline thickness of endometrial stripe Anticipating evaluation by ANGLE ROLL OPERATOR soon Assessment & Plan (09/07/2022 7:32 AM EDT): US in Apr 2022 showed ovarian cyst Has upcoming appointment with ANGLE ROLL OPERATOR Anxiety 09/01/2022 Assessment & Plan (12/13/2022 7:06 AM EDT): -Continue Wellbutrin 100 mg BID -patient has tried counseling in the past and is hesitant to try counseling at this time. She will let us know if she needs counselor in future. -able to contract her safety Assessment & Plan (09/01/2022 4:56 PM EDT): Will start Wellbutrin 100 mg BID -patient has tried counseling in the past and is hesitant to try counseling at this time. She will let us know if she needs counselor in future. 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 -s/p abdominoplasty in June 2017 -Continue working on lifestyle modifications -Tried phentermine 30 mg daily (increased from 15 mg in August 2022) x 3 mo -Patient would like to try GLP-1 agonist; will prescribe semaglutide Assessment & Plan (12/13/2022 7:04 AM EDT): -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 -s/p abdominoplasty in June 2017 -Continue working on lifestyle modifications -Continue phentermine 30 mg daily (increased from 15 mg in August 2022) -consider GLP 1 agonist in future if insurance approves Assessment & Plan (09/01/2022 4:58 PM EDT): -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 -s/p abdominoplasty in June 2017 -Continue working on lifestyle modifications -Will try phentermine for 3 months; pt understands its side effects - Pt has tried Phentermine 15 mg daily for 3-months, will increase to 30 mg daily -consider GLP 1 agonist in future if insurance approves Assessment & Plan (05/01/2022 6:17 AM EST): -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 -s/p abdominoplasty in June 2017 -Continue working on lifestyle modifications -Will try phentermine for 3 months; pt understands its side effects -Consider topiramate / phentermine or GLP-1 agonist (but difficult to get PA) History of pre-eclampsia 05/01/2022 Assessment & Plan (05/01/2022 6:22 AM EST): -During last of twins [id number] - section on 08/21/20, no complication -continue monitoring BP Migraine with aura and witho ut status migrainosus, not intractable 05/01/2022 Assessment & Plan (08/15/2023 6:16 PM EDT): -Pt dislikes medication, but is now willing to try again -Evaluated by neurologist in 2016, recommended gabapentin at that time. Pt did not take it and has not followed up. -Normal EEG in [address] in 2019 -Continue Excedrin migraine prn -Will try topiramate for prophylaxis -Will try sumatriptan for abortive medication -Refer to neurologist as requested Assessment & Plan (12/13/2022 7:06 AM EDT): -Pt dislikes medication -Evaluated by neurologist in 2016, recommended gabapentin at that time. Pt did not take it and has not followed up. -Normal EEG in [address] in 2019 -Continue Excedrin migraine prn Assessment & Plan (09/07/2022 7:32 AM EDT): -Pt dislikes medication -Evaluated by neurologist in 2016, recommended gabapentin at that time. Pt did not take it and has not followed up. -Normal EEG in [address] in 2019 -Continue Excedrin migraine prn -Consider totipalmate in the future Assessment & Plan (05/01/2022 6:31 AM EST): -Pt dislikes medication -Evaluated by neurologist in 2016, recommended gabapentin at that time. Pt did not take it and has not followed up. -Normal EEG in [address] in 2019 -Continue Excedrin migraine prn Depression 04/28/2022 Assessment & Plan (12/13/2022 7:11 AM EDT): - with anxiety and depression - continue bupropion 100 mg BID -she was able to contract her safety toda -she declines [facility] Assessment & Plan (09/07/2022 7:33 AM EDT): - with anxiety and depression - trial of bupropion, start at 100 mg BID -she was able to contract her safety toda -she declines [facility] Assessment & Plan (05/01/2022 6:24 AM EST): -Currently not active -Pt has tried bupropion and hydroxyzine in the past, which was not effective and she dislikes medications -Continue non-pharmacological approach -Continue practicing stress reduction Bariatric surgery status 04/06/2022 Assessment & Plan (09/07/2022 7:31 AM EDT): -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 Has upcoming appointment with ANGLE ROLL OPERATOR Assessment & Plan (09/01/2022 4:55 PM EDT): Has upcoming appointment with ANGLE ROLL OPERATOR Kidney stone 10/09/2015 Steatosis of liver 10/09/2015 Assessment & Plan (05/01/2022 6:20 AM EST): -continue working on lifestyle modifications -periodic LFT monitoring Allergic rhinitis 04/11/2015 Tobacco use 07/05/2013 Assessment & Plan (12/13/2022 7:06 AM EDT): -She has tried varenicline, nicotine replacement, and bupropionin the past -She was able to stop smoking for a while during last peripartum period, but restarted -Continue working on smoking cessation Assessment & Plan (09/01/2022 4:58 PM EDT): -She has tried varenicline, nicotine replacement, and bupropionin the past -She was able to stop smoking for a while during last peripartum period, but restarted -Continue working on smoking cessation Assessment & Plan (05/01/2022 6:26 AM EST): -She has tried varenicline, nicotine replacement, and bupropionin the past -She was able to stop smoking for a while during last peripartum period, but restarted -Continue working on smoking cessation Resolved Problems Problem Noted Date Diagnosed Date Resolved Date Diabetes mellitus 04/06/2022 04/28/2022 History and physical examination, immigration 04/06/2004/28/2022 Encounters Date Type Department Care Team Description 09/30/2024 Orders Only GENERIC EXTERNAL DATA DEPARTMENT Provider, Generic External Data 09/14/2024 10:15 AM EDT Telemedicine [facility] [address] [place] [phone] Daniela Salmon MD Numbness of right foot (Primary Dx); Leg cramp; Anemia, unspecified type 09/14/2024 Travel 09/13/[address] [address] Daniela Salmon MD chartprep 09/07/2024 Orders Only [address] [address] Daniela Salmon MD Numbness of right foot (Primary Dx); Right leg numbness 09/06/[address] [address] Daniela Salmon MD Nurse Triage from Last 3 Months Immunizations Immunization Administration Dates Next Due Hep A, Adult 10/18/2014,09/09/2010 Pfizer Covid-19 Vaccine 12+ 11/19/2020 Pfizer Covid-19 Vaccine 12+ Bivalent 04/28/2022 Pneumococcal Polysaccharide PPSV23 08/17/2013 TD (adult), 2 Lf tetanus tox oid, preservative free, adsorbed 03/06/2008 Tdap 07/22/2020,02/29/2012 Family History Medical History Relation Name Comments Asthma Maternal Grandmother Hypertension Maternal Grandmother Liver cancer Maternal Grandmother Asthma Mother Mental illness Mother Transient ischemic attack Mother Diabetes type II Sister Hypertension Sister Relation Name Status Comments Maternal Grandmother Mother Sister Social History Tobacco Use Types Packs/Day Years Used Date Smoking Tobacco: Every Day Cigarettes Passive Smoke Exposure: Current Smokeless Tobacco: Never Tobacco Cessation:Ready to Q uit: Not Asked; Counseling Given: Not Answered Depression Answer Date Recorded Patient Health Questionnaire-9 Score 0 12/07/2022 Housing Stability Answer Date Recorded What is your housing situation today? I have jackson pelayo 07/23/[address] you li ve. Do you have problems with any of the following? None of the above 07/23/2023 Food Insecurity Answer Date Recorded Within the past 12 months, y ou worried that your food would run out before you got money to buy more: Never True 07/23/2023 Within the past 12 months,th e food you bought just didn't last and you didn't have enough money to get more: Never True Transportation Answer Date Recorded In the past 12 months, has l ack of transportation kept you from medical appts, meetings, work or from getting things needed for daily living? No 07/23/2023 Utilities Answer Date Recorded In the past 12 months, has t he electric, gas, oil or water company threatened to shut off services in your home? No 07/23/2023 Depression Answer Date Recorded Patient Health Questionnaire-2 Score 0 12/07/2022 Comments Unknown Sex and Gender Information Value Date Recorded Sex Assigned at Female 02/23/2022 10:17 AM EDT Legal Sex Female 10:17 AM EDT Gender Identity Female 02/23/2022 10:17 AM EDT Sexual Orientation Straight 02/23/2022 10 :17 AM EDT Last Filed Vital Signs Vital Sign Reading Time Taken Comments Blood Pressure 150/94 08/03/2023 3:40 PM EDT Pulse 86 08/03/2023 3:40 PM EDT Temperature 36.6 ??C (97.8 ??F) 08/03/2023 3:40 PM ED T Respiratory Rate 24 08/03/2023 3:40 PM EDT Oxygen Saturation 99% 12/07/2022 3:43 PM EDT Inhaled Oxygen Concentration - - Weight 84.6 kg (186 lb 9.6 oz) 08/03/2023 3:40 P M EDT Height 162.1 cm (5' 3.83 ) 12/07/2022 3:43 PM ED T Body Mass Index 32.2 12/07/2022 3:43 PM EDT Plan of Treatment Health Maintenance Due Date Last Done Comments CT Colonography 1978 FIT DNA/Cologuard 1978 FIT 1978 FOBT 1978 Sigmoidoscopy 1978 Disability Screening 1978 Alcohol/Substance Use Screening 1990 Family Planning (PISQ) 1993 Pneumococcal Vaccine: Pediatrics (0 to 5 Years) and At-Risk Patients (6 to 49) Years (2 of 2 - PCV) 08/17/2014 08/17/2013 Depression Screening 12/08/2023 12/07/2022, 12/08/19 23 COVID-19 Vaccine ( - season) 2023 04/28/2022, 12/10/2020, 11/19/2020 SDOH Screening 07/22/2024 07/23/2023 Influenza Vaccine (Season Ended) 2024 Cervical Cancer Screening 03/27/2025 HPV/Cotest 03/27/2025 03/27/2020, 01/04/2018 Pap Smear 03/27/2025 03/27/2020 Tobacco Screening 09/22/2025 09/22/2024 Mammogram 01/10/2026 01/11/2024, 12/25, 01/05/2023 Zoster Vaccines (1 of 2) 02/15/2028 Lipid Panel 05/13/2029 05/13/2024, 0704/2023, 04/28/2022, Additional history exists DTaP/Tdap/Td Vaccines (3 - Td or Tdap) 07/22/2030 07/22/2020, 02/29/2012, 03/06/2008 Colonoscopy 05/05/2033 05/05/2023 Colorectal Cancer Screening 05/05/2033 RSV Patients and Patients Aged 60 years or older (1 - 1-dose 75+ series) 2053 Hepatitis A Vaccines Completed 10/18/2014, 09/10/19 11 HIV Screening Completed 11/19/2020 Hepatitis C Screening Completed 11/19/2020 HIB Vaccines Aged Out No longer eligi ble based on patient's age to complete this topic HPV Vaccines Aged Out No longer eligi ble based on patient's age to complete this topic Hepatitis B Vaccines Discontinued IPV Vaccines Aged Out No longer eligi ble based on patient's age to complete this topic Meningococcal B Vaccine Aged Out No l onger eligible based on patient's age to complete this topic Meningococcal Vaccine Aged Out No girish yahaira eligible based on patient's age to complete this topic RSV under 20 months Aged Out No longe r eligible based on patient's age to complete this topic Rotavirus Vaccines Aged Out No longer eligible based on patient's age to complete this topic Procedures Procedure Name Priority Date/Time Associated Diagnosis Comments XR CHEST 2 VIEWS Routine 09/30/2024 9:03 PM EDT URINALYSIS, COMPLETE, WITH REFLEX TO CULTURE Routine 09/30/2024 8:32 PM EDT D DIMER HIGH SENSITIVITY Routine 09/30/2024 7:58 PM EDT HCG, TOTAL, QN Routine 09/30/2024 7:58 PM EDT HIGH SENSITIVITY TROPONIN I Routine 09/30/2024 7:58 PM EDT LIPASE Routine 09/30/2024 7:58 PM EDT MAGNESIUM Routine 09/30/2024 7:58 PM EDT BASIC METABOLIC PANEL Routine 09/30/2024 7:58 PM EDT HEPATIC FUNCTION PANEL Routine 09/30/2024 7:58 PM EDT PROTHROMBIN TIME-INR Routine 09/30/2024 7:58 PM EDT CBC WITH AUTO DIFFERENTIAL Routine 09/30/2024 7:58 PM EDT B TYPE NATRIURETIC PEPTIDE (BNP) Routine 09/30/2024 7:57 PM EDT LIPID PANEL, STANDARD Routine 05/13/2024 9:48 AM EST BI MAMMOGRAM SCREEN W AHMET W IMPLANTS MAYNOR Routine 01/11/2024 4:00 PM EDT HM COLONOSCOPY Routine 05/05/2023 ZZZ HISTORICAL HEPATITIS C AB W/REFL TO HCV RNA, QN, PCR Routine 11/19/2020 11:52 AM EDT HIV 1/2 ANTIGEN/ANTIBODY, FOURTH GENERATION W/RFL Routine 11/19/2020 11:52 AM EDT HM PAP/HPV Routine 03/27/2020 from Last 3 Months or Most Recently Relevant to Health Maintenance Results * XR Chest 2 Views (09/30/2024 9:03 PM EDT) Anatomical Region Laterality Modality Chest Radiographic Nidia ging 09/30/2024 9:0 3 PM EDT Narrative 09/30/2024 9:05 PM EDT ? [facility] ?[address] ?[place] [address] ?XRay Report ? Signed ? Patient: Anup,Yanely ?MR#: [id number] ?? [id number] ? : 1980 ?Acct:[id number] ? Age/Sex: 44 / F ?ADM Date: 09/30/24 ? Loc: HO.ED ? Attending Dr: ? Ordering Physician: Ayana Kay ?? Date of Service: 09/30/24 ?? Procedure(s): XR chest 2V ?? Accession Number(s): [id number] ? cc: Ayana Kay; Daniela Salmon MD ? CLINICAL HISTORY: L upper back pain sob ? 2 view chest x-ray ? Comparison: None ? Findings: ?? No consolidation, pleural effusion or pneumothorax. ?? Normal size heart. ?? No acute fracture. ?? Nonspecific prominent gaseous distention of the splenic flexure. ?? There are multiple surgical clips in the left upper quadrant. ?? There are bilateral breast prostheses. ? IMPRESSION: ?? No acute cardiopulmonary process. ? This document has been electronically signed by: Arielle Hays DO on ?? 09/30/2024 21:03:20 ? Dictated By: ?Arielle Hays MD ? Signed By: ?<Electronically signed by Arielle Hays MD in OV> ?09/30/242103 ? DD/ 02 ? TD/TT: 09/30/242102 ? Trailer Sections Assembler: ? Procedure Note Erick Alva - 09/30/[address] [address] XRay Report Signed Patient: Latricia Hebert#: [id number] : 1980Acct:[id number] Age/Sex: 44 / FADM Date: 09/30/24 Loc: HO.ED Attending Dr: Ordering Physician: Ayana Kay Date of Service: 09/30/24 Procedure(s): XR chest 2V Accession Number(s): [id number] cc: Ayana Kay; Daniela Salmon MD CLINICAL HISTORY: L upper back pain sob 2 view chest x-ray Comparison: None Findings: No consolidation, pleural effusion or pneumothorax. Normal size heart. No acute fracture. Nonspecific prominent gaseous distention of the splenic flexure. There are multiple surgical clips in the left upper quadrant. There are bilateral breast prostheses. IMPRESSION: No acute cardiopulmonary process. This document has been electronically signed by: Arielle Hays DO on 09/30/2024 21:03:20 Dictated By: Arielle Hays MD Signed By: <Electronically signed by Arielle Hays MD in OV> 09/30/242103 DD/ 02 TD/TT: 09/30/242102 Trailer Sections Assembler: [facility] External Provider IMG XR PROCEDURES Edited Result - Final * (ABNORMAL) Urinalysis, Complete, with Reflex to Culture (09/30/2024 8:32 PM EDT) Color Urine Yellow [facility] Appearance Urine Clear [facility] PH 7.0 5.0 - 9.0 [facility] Glucose Urine UA Negative Negative mg/dL [facility] Urine Blood Trace(A) Negative [facility] Specific [employer] - Urine 1.010 1.005 - 1.025 [facility] Urine Protein Negative Neg-Trace mg/dL [facility] Urine Ketones Negative Negative mg/dL [facility] Nitrite Urine Negative Negative [facility] Leukocyte Esterase Urine Negative Negative [facility] RBC Urine 3-5(A) 0 - 2 /HPF [facility] Urine WBC 0-5 0 - 5 /HPF [facility] Urine Squamous Epithelial Cell 0-2 0 - 2 /HPF [facility] Urine Bacteria None Seen None Seen [facility] Hyaline Casts, Urine 0-2 0 - 2 /LPF [facility] 09/30/2024 8:32 PM EDT 09/30/2024 8:35 PM EDT Narrative [facility] - 09/30/2024 8:47 PM EDT Urine, Clean Catch Generic External Data Provider LAB URINE ORDERAB LES Final Result Performing Organization Address [facility] Number [facility] [address] [place] [phone] * D Dimer High Sensitivity (09/30/2024 7:58 PM EDT) [facility] D Dimer High Sensitivity <150 NG/ML [facility] Comment:D-DIMER HS REFERENCE RANGENote: Our assay reports D-Dimer Units (D- DU).The cut-off value for venous thromboembolic (VTE) disease is230 ng/mL. This value has a very high negative predictivevalue when the patient has a low to moderate clinicalprobability of VTE.The upper limit of normal is 243 ng/mL. 09/30/2024 7:58 PM EDT 09/30/2024 8:00 PM EDT Generic External Data Provider LAB BLOOD ORDERAB LES Final Result Performing Organization Address [facility] Co de Phone Number [facility] [address] [place] [phone] * High Sensitivity Troponin I (09/30/2024 7:58 PM EDT) [facility] TROPONIN I HIGH SENSITIVITY <2.7 <3.5 - 17.0 ng/L [facility] Comment:The Major high sens itivity Troponin-I results should beused in conjunction with other diagnostic information suchas ECG, clinical observations and information, and patientsymptoms to aid in the diagnosis of [place]. 09/30/2024 7:58 PM EDT 09/30/2024 8:00 PM EDT us Generic External Data Provider LAB BLOOD ORDERAB LES Final Result [facility] [address] [place] [address] [phone] * (ABNORMAL) CBC auto differential (09/30/2024 7:58 PM EDT) White Blood Count 7.1 4.8 - 10.8 X10*3/uL [facility] Red Blood Count 3.66(L) 4.20 - 5.50 X10*6/uL [facility] Hemoglobin 11.5(L) 12.0 - 16.0 g/dl [facility] Hematocrit 32.4(L) 37.0 - 47.0 % [facility] Mean Corpuscular Volume 88.5 80.0 - 98.0 fL [facility] Mean Corpuscular Hemoglobin 31.4 27.0 - 33.0 pg [facility] Mean Corpuscular HGB Conc 35.5(H) 31.0 - 35.0 g/dl [facility] Red Cell Distribution Width 13.4 11.0 - 16.0 % [facility] Platelet Count 224 160 - 400 X10*3/uL [facility] Mean Platelet Volume 10.0 9.4 - 12.3 fL [facility] Neutrophils Percent Auto 49.4 45 - 73 % [facility] Imm Gran Pct Auto 0.1 0.0 - 0.4 % [facility] Lymphocytes Percent Auto 41.4(H) 20 - 40 % [facility] Monocytes Percent Auto 4.6 2 - 11 % [facility] Eosinophils Percent Auto 3.5 0 - 4 % [facility] Basophils Percent Auto 1.0 0 - 2 % [facility] NRBC Pct Auto 0.0 0.0 - 0.2 /100WBC [facility] Neutrophils Absolute Auto 3.5 2.0 - 8.3 x10*3/uL [facility] Imm Gran Abs Auto 0.01 0.00 - 0.03 X10*3/uL [facility] Lymphocytes Absolute Auto 3.0 1.2 - 4.9 X10*3/uL [facility] Monocytes Absolute Auto 0.3 0.1 - 1.2 X10*3/uL [facility] Eosinophils Absolute Auto 0.3 0.0 - 0.4 X10*3/uL [facility] Basophils Absolute Auto 0.1 0.0 - 0.2 X10*3/uL [facility] NRBC Abs Auto 0.000 0.0 - 0.012 X10*3/uL [facility] 09/30/2024 7:58 PM EDT 09/30/2024 8:00 PM EDT us Generic External Data Provider LAB BLOOD ORDERAB LES Final Result [facility] [address] [place] [address] [phone] * (ABNORMAL) Prothrombin Time-INR (09/30/2024 7:58 PM EDT) Prothrombin Time 12.7(H) 10.9 - 12.4 SEC [facility] INTERNATIONAL NORM RATIO 1.1 0.9 - 1.1 [facility] Comment:INTERNATIONAL NORMAL IZED RATIO (INR) REFERENCE RANGES Reference RangeFor patients not on anticoagulant therapy: 0.9 - 1.1INR ranges for oral anticoagulanttherapy:For prevention and treatment of venous thrombosis and pulmonary embolism: 2.0 - 3.0For acute myocardial infarction with aspirin therapy: 2.0 - 3.0For acute myocardial infarction without aspirin therapy: 3.0 - 4.0For patients with mechanical prosthetic heart valves: 2.5 - 3.5 09/30/2024 7:58 PM EDT 09/30/2024 8:00 PM EDT us Generic External Data Provider LAB BLOOD ORDERAB LES Final Result Performing Organization Address [facility] Co de Phone Number [facility] [address] [place] [phone] * hCG, Total, Quantitative (09/30/2024 7:58 PM EDT) HCG Quantitative <2 mIU/mL [facility] Comment:Weeks post LMP Appr oximate hCG(Last Menstrual Period) Range (mIU/ml)3 - 4 weeks 9 - 1304 - 5 weeks 75 - 2,6005 - 6 weeks 850 - 20,8006 - 7 weeks 4000 - 100,2007 - 12 weeks 11,500 - 289,06517 - 16 weeks 18,300 - 137,87982 - 29 weeks (2nd trimester) 1,400 - 53,91221 - 41 weeks (3rd trimester) 940 - 60,000The Major B- hCG assay is used for the early detection ofpregnancy; it cannot be used to diagnose any conditionunrelated to . If a B-hCG level is not supportedby the clinical evidence, results should be confirmed by analternative method (qualitative urine hCG, for example). 09/30/2024 7:58 PM EDT 09/30/2024 8:00 PM EDT us Generic External Data Provider LAB BLOOD ORDERAB LES Final Result Performing Organization Address [facility] Co de Phone Number [facility] [address] [place] [phone] * Magnesium (09/30/2024 7:58 PM EDT) Magnesium 2.0 1.6 - 2.6 mg/dL [facility] 09/30/2024 7:58 PM EDT 09/30/2024 8:00 PM EDT us Generic External Data Provider LAB BLOOD ORDERAB LES Final Result Performing Organization Address [facility] Co de Phone Number [facility] [address] [place] [phone] * Lipase (09/30/2024 7:58 PM EDT) Pathologist [facility] Lipase 17 8 - 78 U/L [facility] 09/30/2024 7:58 PM EDT 09/30/2024 8:00 PM EDT Generic External Data Provider LAB BLOOD ORDERAB LES Final Result Performing Organization Address City/[facility]/ZIP Co de Phone Number [facility] [address] [place] [phone] * Hepatic Function Panel (09/30/2024 7:58 PM EDT) [facility] Bilirubin, Total 0.2 0.0 - 1.0 mg/dL [facility] Bilirubin, Direct <0.2 0.0 - 0.5 mg/dL [facility] Aspartate Amino Transferase 23 5 - 31 U/L [facility] Alanine Aminotransferase 13 0 - 31 U/L [facility] Total Protein 7.3 6.5 - 8.0 g/dL [facility] Albumin Level 4.3 3.5 - 5.0 g/dL [facility] Alkaline Phosphatase 62 39 - 117 U/L [facility] 09/30/2024 7:58 PM EDT 09/30/2024 8:00 PM EDT Generic External Data Provider LAB BLOOD ORDERAB LES Final Result Performing Organization Address [facility]/ZIP Co de Phone Number [facility] [address] [place] [phone] * (ABNORMAL) Basic Metabolic Panel (09/30/2024 7:58 PM EDT) Pathologist [facility] Sodium 139 135 - 145 mmol/L [facility] Potassium 3.8 3.3 - 5.1 mmol/L [facility] Chloride 107 96 - 108 mmol/L [facility] Carbon Dioxide 25 22 - 29 mmol/L [facility] Anion Gap 11(L) 12 - 20 [facility] Urea Nitrogen (BUN) 7(L) 9 - 16 mg/dL [facility] Creatinine, Serum 0.82 0.5 - 1.4 mg/dL [facility] Creatinine Clr Calc Pharmacy 74.0 [facility] Comment:Provided height and weight: 162.56 cm,63 kg.eGFR (calculated from the MDRD study equation) and eCrCl(calculated from the Cockcroft-Gault equation) are based ondifferent parameters and may not yield comparable results.If eCrCl result is absurd, please check patient'sheight/weight. Estimated Glomerular Filt Rate >60 [facility] Comment:Chronic Kidney Disea se: Estimated GFR < 60 mL/min/1.87h8Adzvor Kidney Disease: Estimated GFR < 15 mL/min/1.73m2 Glucose 98 60 - 115 mg/dL [facility] Calcium 9.2 8.4 - 10.2 mg/dL [facility] 09/30/2024 7:58 PM EDT 09/30/2024 8:00 PM EDT us Generic External Data Provider LAB BLOOD ORDERAB LES Final Result Performing Organization Address [facility]/ZIP Co de Phone Number [facility] [address] [place] [phone] * B Type Natriuretic Peptide (BNP) (09/30/2024 7:57 PM EDT) B Type Natriuretic Peptide <10 <100 pg/mL [facility] 09/30/2024 7:57 PM EDT 09/30/2024 8:00 PM EDT us Generic External Data Provider LAB BLOOD ORDERAB LES Final Result Performing Organization Address [facility]/ZIP Co de Phone Number [facility] [address] [place] [phone] * (ABNORMAL) Lipid Panel, Standard (05/13/2024 9:48 AM EST) Triglycerides 107 <150 mg/dL [facility] Comment:Desirable Triglyceri de: less than 150 mg/dLBorderline High Triglyceride 150-199 mg/dLHigh Triglyceride: 200-499 mg/dLVery High Triglyceride: greater than or equal to 5OO mg/dL Cholesterol 182 <200 mg/dL [facility] Comment:Desirable Cholestero l: less than 200 mg/dLBorderline High Cholesterol: 200-239 mg/dLHigh Cholesterol: greater than 239 mg/dL LDL Cholesterol Calculated 121(H) <100 mg/dL [facility] Comment:Desirable LDL: less than 100 mg/dLNear Optimal/Above Optimal LDL: 110- 129 mg/dLBorderline High LDL: 130-159 mg/dLHigh LDL: 160-189 mg/dLVery High LDL: greater than or equal to 190 mg/dL HDL Cholesterol 40(L) >40 mg/dL [facility] Comment:Desirable HDL: great er than 40 mg/dL Note: This HDL assay may give artificially low results in patients with liver disease. 05/13/2024 9:48 AM EST 05/13/2024 9:48 AM EST us Daniela Salmon MD LAB BLOOD ORDERABLES Final Resul t [facility] [address] [place] [phone] * BI Mammogram Screen w/ Ahmet w/ Implants Maynor (01/11/2024 4:00 PM EDT) Anatomical Region Laterality Modality Mammography 01/11/2024 4:00 PM EDT Narrative 01/25/2024 10:34 AM EDT ? [facility] ? [address] ?[place] [address] ? Mammography Report ? Signed ? Patient: Hebert,Yanely ?MR#: [id number] ?? [id number] ? : 1980 ?Acct:[id number] ? Age/Sex: 43 / F ?ADM Date: 01/10/24 ? Loc: HO.MAMMO ? Attending Dr: Daniela Salmon MD ? Ordering Physician: Daniela Salmon MD ?Results: 2Benign F ?? indings ? Date of Service: 01/11/24 ?Follow Up: 1 Year From Orig ?? inal Mammogram ? Procedure(s): MM tomosynthesis screen imp BI ?? Accession Number(s): [id number] ? cc: Daniela Salmon MD ? EXAMINATION: ?? MM SCREENING DIGITAL BREAST TOMOSYNTHESIS, BILATERAL ? CLINICAL INFORMATION: ? Screening. Asymptomatic. ? COMPARISON: ?? Mammography: Comparison is made with relevant avialable priors. ? TECHNIQUE: ?? Digital mammography is performed in craniocaudal and mediolateral ?? oblique views along with computer-aided detection (CAD). Digital breast ?? tomosynthesis is performed in implant-displaced craniocaudal and ?? implant-displaced mediolateral oblique views along with computer-aided ?? detection (CAD). ? FINDINGS: ?? There are scattered areas of fibroglandular density (ACR BI-RADS breast ?? composition Category b). ?? Bilateral retropectoral silicone implants are normal appearing. ?? There are no significant masses, abnormal calcifications, or other ?? abnormalities. ? MM/MM tomosynthesis screen imp BI ?? IMPRESSION: ?? There are no significant changes from prior study. ? ASSESSMENT: ? BI-RADS BI-RADS 2 - Benign Findings ? RECOMMENDATION: ?? Routine annual mammography screening. ? 1 year F/U ? This patient's information was entered into a reminder system with a ?? target due date for their next mammogram. ? Electronically signed by: ??Alina Pryor DO ??01/25/2024 10:31 AM EDT ? Dictated By: ?Alina Pryor DO ? Signed By: ?<Electronically signed by Alina Pryor, DO in OV> ? 01/25/24 1031 ? DD/ 1600 ? TD/TT: 01/11/24 1618 ? Trailer Sections Assembler: ? Procedure Note Donoheladiomiguelitoter, Image - 01/25/2024 Daniel [facility] [address] [place] [address] Mammography Report Signed Patient: Filiberto HebertR#: [id number] : 1980Acct:[id number] Age/Sex: 43 / FADM Date: 01/11/24 Loc: CASSIE.MAMMO Attending Dr: Daniela Salmon MD Ordering Physician: Daniela Salmon MDResults: 2Benign F indings Date of Service: 01/11/24Follow Up: 1 Year From Orig ina Mammogram Procedure(s): MM tomosynthesis screen imp BI Accession Number(s): [id number] cc: Daniela Salmon MD EXAMINATION: MM SCREENING DIGITAL BREAST TOMOSYNTHESIS, BILATERAL CLINICAL INFORMATION: Screening. Asymptomatic. COMPARISON: Mammography: Comparison is made with relevant avialable priors. TECHNIQUE: Digital mammography is performed in craniocaudal and mediolateral oblique views along with computer-aided detection (CAD). Digital breast tomosynthesis is performed in implant-displaced craniocaudal and implant-displaced mediolateral oblique views along with computer-aided detection (CAD). FINDINGS: There are scattered areas of fibroglandular density (ACR BI-RADS breast composition Category b). Bilateral retropectoral silicone implants are normal appearing. There are no significant masses, abnormal calcifications, or other abnormalities. MM/MM tomosynthesis screen imp BI IMPRESSION: There are no significant changes from prior study. ASSESSMENT: BI-RADS BI-RADS 2 - Benign Findings RECOMMENDATION: Routine annual mammography screening. 1 year F/U This patient's information was entered into a reminder system with a target due date for their next mammogram. Electronically signed by: Alina Pryor DO 01/25/2024 10:31 AM EDT RP Dictated By: Alina Pryor DO Signed By: <Electronically signed by Alina Pryor DO in OV> 01/25/24 1031 DD/ 1600 TD/TT: 01/11/24 1618 Trailer Sections Assembler: Daniela Salmon MD [facility] BI PROCEDURES Edited Result - Final * Hm Colonoscopy (05/05/2023) Colonoscopy Normal Normal Historical Provider [facility] Final Result * HEPATITIS C AB W/REFL TO HCV RNA, QN, PCR (11/19/2020 11:52 AM EDT) HEPATITIS C ANTIBODY NON-REACT CHELSIE NON-REACT CHELSIE [facility] INDEX 0.02 <1.00 [facility] Comment: ?? HCV antibody was non-reactive. There is no laboratory ?? evidence of HCV infection. ?? In most cases, no further action is required. However, if recent HCV exposure is suspected, a test for HCV RNA (test code 56300) is suggested. ?? For additional information please refer to http://education.[employer]/faq/DXB36i5 (This link is being provided for informational/ educational purposes only.) ?? 11/19/2020 11:5 2 AM EDT us Daniela Salmon MD HISTORICAL/NON ORDERABLE LABS Fi nal Result [facility] [address] * HIV 1/2 ANTIGEN/ANTIBODY,FOURTH GENERATION W/RFL (11/19/2020 11:52 AM EDT) HIV-1/2 ANTIGEN AND ANTIBODIES, 4TH GENERATION W/ REFLEX NON-REACT CHELSIE NON-REACT CHELSIE [facility] Comment: HIV-1 antigen and HIV-1/HIV-2 antibodies were not detected. There is no laboratory evidence of HIV infection. ?? PLEASE NOTE: This information has been disclosed to you from records whose confidentiality may be protected by state law. ??If your state requires such protection, then the state law prohibits you from making any further disclosure of the information without the specific written consent of the person to whom it pertains, or as otherwise permitted by law. A general authorization for the release of medical or other information is NOT sufficient for this purpose. ? For additional information please refer to http://education.[employer]/faq/KDZ860 (This link is being provided for informational/ educational purposes only.) ? The performance of this assay has not been clinically validated in patients less than 2 years old. ?? 11/19/2020 11:5 2 AM EDT Daniela Salmon MD LAB BLOOD ORDERABLES Final Resul t [facility] [address] * Pap Smear (03/27/2020) Pap Negative for intraephithelial lesion or malignancy Negative for intraephithelial lesion or malignancy, Other HPV Undetected Undetected, Indeterminate, Quantitative, Not Detected Historical Provider HEALTH MAINTENANCE Final Result from Last 3 Months or Most Recently Relevant to Health Maintenance Insurance [facility] H[facility] Care Teams Airbrush Painter Relationship Specialty Start Date End Date Daniela Salmon MD [address] [place] [phone] PCP - General Family Medicine 06/19/13
== END 2024-10-10 09:46 | disposition home or self-care (01) ==
LOC: HO.NEURO 09:45
PROVIDERS: PCP Family Medicine; Visit Provider Family Medicine
DX: R20.0 Anesthesia of skin (principal)
CPT/HCPCS: 95886; 95910

== ENCOUNTER 2025-01-23 15:32 | Outpatient (REF) | payer BC, SELFPAY ==
--- NOTE | ~2025-01-23 | MM_ITS ---
EXAMINATION: MM SCREENING DIGITAL BREAST TOMOSYNTHESIS, BILATERAL CLINICAL INFORMATION: Screening. Asymptomatic. COMPARISON: Mammography: Comparison is made with relevant avialable priors. TECHNIQUE: Digital mammography is performed in craniocaudal and mediolateral oblique views along with computer-aided detection (CAD). Digital breast tomosynthesis is performed in implant-displaced craniocaudal and implant-displaced mediolateral oblique views along with computer-aided detection (CAD). FINDINGS: There are scattered areas of fibroglandular density. Bilateral retropectoral silicone implants are stable appearing. There are no significant masses, abnormal calcifications, or other abnormalities. MM/MM tomosynthesis screen imp BI IMPRESSION: There are no significant changes from prior study. ASSESSMENT: BI-RADS Category 2: Benign RECOMMENDATION: Routine annual mammography screening. 1 year F/U This patient's information was entered into a reminder system with a target due date for their next mammogram. Electronically signed by: Alina Pryor DO 01/29/2025 05:39 PM EDT
[2025-01-23 16:21] LABS: MANUAL DIFF FLAG NO
--- OUTSIDE RECORDS SUMMARY | 2025-01-23 16:48 | XMS_ITS | Encounter Summary ---
Author Organization [employer] Address [address] [place] [address] Care Team Providers Care Deli Cook Name Role Phone Daniela Salmon MD Primary Care Provider [phone] Encounter Details Date Type Department Care Team (Late Contact Info) Description 04/28/2022 Abstract [facility] [address] [place], [place] [phone] Daniela Salmon MD [address] [place] [address] Social History Tobacco Use Types Packs/Day Years Used Date Smoking Tobacco: Every Day Cigarettes Smokeless Tobacco: Never Comments Unknown Sex and Gender Information Value Date Recorded Sex Assigned at Female 02/23/2022 10:17 AM EDT Legal Sex Female 10:17 AM EDT Gender Identity Female 02/23/2022 10:17 AM EDT Sexual Orientation Straight 02/23/2022 10 :17 AM EDT COVID-19 Exposure Response Date Recorded In the last 10 days, have yo u been in contact with someone who was confirmed or suspected to have Coronavirus/COVID-19? No / Unsure 04/28/2022 1:42 PM EST documented as of this encounter Functional Status * Over the past 2 weeks, how often have you been bothered by any of the following problems? Question Answer Date of Assessment Author Feeling down, depressed, or hopeless More than half the days 04/28/2022 1:55 PM EST Rebeka Espinal [place] documented as of this encounter Plan of Treatment Upcoming Encounters Date Type Department Care Team (Late st Contact Info) Description 03/19/2025 10:15 AM EST Office Visit [facility] [address] [place] [address] Daniela Salmon MD [address] [place] [address] documented as of this encounter Visit Diagnoses Not on filedocumented in this encounter Care Teams Deli Cook Relationship Specialty Start Date End Date Daniela Salmon MD [address] [place] [phone] PCP - General Family Medicine 06/19/13 documented as of this encounter
--- OUTSIDE RECORDS SUMMARY | 2025-01-23 16:48 | XMS_ITS | Encounter Summary ---
Author Organization [employer] Address [address] [place] [address] Care Team Providers Care Private Branch Exchange Repairer Name Role Phone Daniela Salmon MD Primary Care Provider [phone] Reason for Referral * Neurology (Routine) - Closed Specialty Diagnoses / Procedures Referred By Carmel t Referred To Contact Diagnoses Numbness of right foot Right leg numbness Procedures EMG Daniela Salmon MD [address] [place] [address] Phone: tel: fax: [address] Phone: tel: fax: Referral ID Status Reason Start Date Expiration Date Visits Re quested Visits Authorized [id number] Closed 09/07/2024 09/07/2025 1 1 * Neurology (Routine) - Closed Specialty Diagnoses / Procedures Referred By Contac t Referred To Contact Diagnoses Numbness of right foot Right leg numbness Procedures Nerve conduction test Daniela Salmon MD [address] [place] [address] Phone: tel: fax: [address] Phone: tel: fax: Referral ID Status Reason Start Date Expiration Date Visits Re quested Visits Authorized [id number] Closed 09/07/2024 09/07/2025 1 1 Encounter Details Date Type Department Care Team (Late Contact Info) Description 09/07/2024 Orders Only [facility] [address] [place] [address] Daniela Salmon MD [address] [place] [address] Numbness of right foot (Primary Dx); Right leg numbness Social History Tobacco Use Types Packs/Day Years Used Date Smoking Tobacco: Every Day Cigarettes Passive Smoke Exposure: Current Smokeless Tobacco: Never Depression Answer Date Recorded Patient Health Questionnaire-9 [...] Orientation Straight 02/23/2022 10 :17 AM EDT documented as of this encounter Plan of Treatment Upcoming Encounters Date Type Department Care Team (Late Contact Info) Description 03/19/2025 10:15 AM EST Office Visit [facility] [address] [place] [address] Daniela Salmon MD [address] [place] [address] Scheduled Orders Name Type Priority Associated Diagnoses Orde r Schedule Nerve conduction test Neurology Routine Numbness of right foot Right leg numbness Expected: 09/07/2024 (Approximate), Expires: 09/07/2025 EMG Neurology Routine Numbness of right foot Right leg numbness Expected: 09/07/2024 (Approximate), Expires: 09/07/2025 documented as of this encounter Visit Diagnoses Diagnosis Numbness of right foot- Primary Right leg numbness Disturbance of skin sensation documented in this encounter Additional Health Concerns Assessment Noted Time PHQ-9 Depression Total Score: 0 12/08/19 23 3:43 PM EDT documented as of this encounter Care Teams Private Branch Exchange Repairer Relationship Specialty Start Date End Date Daniela Salmon MD [address] [place] [address] PCP - General Family Medicine 06/19/13 documented as of this encounter
--- OUTSIDE RECORDS SUMMARY | 2025-01-23 16:48 | XMS_ITS | Encounter Summary ---
Author Organization [employer] Address [address] [place] [address] Care Team Providers Care Historical Manuscripts Curator Name Role Phone Daniela Salmon MD Primary Care Provider [phone] Encounter Details Date Type Department Care Team (Late st Contact Info) Description 04/29/2022 Orders Only [facility] [address] [place], [place] [phone] Daniela Salmon MD [address] [place], [place] [phone] Iron deficiency (Primary Dx) Social History Tobacco Use Types Packs/Day Years [...] PM EST documented as of this encounter Miscellaneous Notes * Result Encounter Note - Daniela Salmon MD - 04/29/2022 5:39 PM EST Please notify pt of US result. Uterus is normal. Small nabothian cysts in the cervix, which is benign. Small luteal cyst in R ovary is normal. There is complex cyst in L ovary. Its characteristics are suggestive of benign cyst. Recommendation is to repeat US in 2-3 mo. If pt prefers to be evaluatedby mechanical process engineer, I will refer, but I cannot guarantee that she will be able to be seen within 3 mo.Pt can call the office too. Thank you documented in this encounter Plan of Treatment Upcoming Encounters Date Type Department Care Team (Late st Contact Info) Description 03/19/2025 10:15 AM EST Office Visit [facility] [address] [place] [address] Daniela Salmon MD [address] [place] [address] Scheduled Orders Name Type Priority Associated Diagnoses Orde r Schedule Helicobacter pylori Antigen, EIA, Stool Lab Routine Iron deficiency Expected: 07/28/2022 (Approximate), Expires: 04/29/2023 CBC auto differential Lab Routine Iron deficiency Expected: 07/28/2022 (Approximate), Expires: 04/29/2023 Ferritin Lab Routine Iron deficiency Expected: 07/28/2022 (Approximate), Expires: 04/29/2023 Iron And Total Iron Binding Capacity Lab Routine Iron deficiency Expected: 07/28/2022 (Approximate), Expires: 04/29/2023 Celiac Disease Comprehensive Panel Lab Routine Iron deficiency Expected: 07/28/2022 (Approximate), Expires: 04/29/2023 documented as of this encounter Procedures Procedure Name Priority Date/Time Associated Diagnosis Comments US PELVIS TRANSVAGINAL Routine 05/22/2022 3:22 PM EST documented in this encounter Results * US Pelvis Transvaginal (05/22/2022 3:22 PM EST) Anatomical Region Laterality Modality Pelvis Ultrasound 05/22/2022 3:22 PM EST Narrative 05/25/2022 1:48 PM EST [address] [address] Ultrasound Report Signed Patient: Yanely Hebert MR#: [id number] : 1980 Acct:[id number] Age/Sex: 42 / F ADM Date: 05/22/22 Loc: HO.US Attending Dr: Daniela Salmon MD Ordering Physician: Daniela Salmon MD Date of Service: 05/22/22 Procedure(s): US pelvic and transvaginal Accession Number(s): [id number] cc: Daniela Salmon MD EXAMINATION: US PELVIS CLINICAL INFORMATION: Abnormal uterine bleeding. COMPARISON: None TECHNIQUE: Ultrasound of the pelvis is performed using both transabdominal and transvaginal transducers along with Doppler. Transvaginal imaging is performed due to inadequate visualization transabdominally. FINDINGS: Uterus: The uterus is anteverted, anteflexed and measures 10.3 cm in length, 2.3 cm AP and 5.3 cm in transverse dimension. The double wall endometrial thickness is 1.4 cm. The uterus is smooth in contour and has normal myometrial echogenicity. No visible fibroid There are small nabothian cysts seen in the cervix. Adnexa: Both ovaries are visualized. There is normal color flow to the adnexa. There is no ovarian torsion. There is no pelvic ascites or fluid collection. Right ovary measures 4.0 x 1.8 x 2.4 cm and volume 10.1 mL. There is a dominant follicle measuring 2.1 x 1.7 x 1.7 cm and corpus luteal cyst measuring 1.2 x 1.1 x 1.3 cm. There is normal arterial and venous flow seen to the right ovary. Left ovary measures 5.8 x 3.9 x 4.4 cm and volume 58.1 mL. There is anechoic cyst with thin septation measuring 5.1 x 3.6 x 4.1 cm. Normal arterial and venous flow seen. There is no free fluid in the cul-de-sac. US/US pelvic and transvaginal IMPRESSION: Unremarkable uterus. Small nabothian cysts in the cervix. Small corpus luteal cyst right ovary. Complex cyst left ovary. Dictated By: Mauri Levin MD Signed By: <Electronically signed by Mauri Levin MD in OV> 05/25/22 1345 DD/ 1522 TD/TT: Per Diem Clerk: [facility] Procedure Note Donotuseinterpreter, Image - 05/25/[address] [address] Ultrasound Report Signed Patient: Latricia Hebert#: [id number] : 1980Acct:[id number] Age/Sex: 42 / FADM Date: 05/22/22 Loc: HO.US Attending Dr: Daniela Salmon MD Ordering Physician: Daniela Salmon MD Date of Service: 05/22/22 Procedure(s): US pelvic and transvaginal Accession Number(s): [id number] cc: Daniela Salmon MD EXAMINATION: US PELVIS CLINICAL INFORMATION: Abnormal uterine bleeding. COMPARISON: None TECHNIQUE: Ultrasound of the pelvis is performed using both transabdominal and transvaginal transducers along with Doppler. Transvaginal imaging is performed due to inadequate visualization transabdominally. FINDINGS: Uterus: The uterus is anteverted, anteflexed and measures 10.3 cm in length, 2.3 cm AP and 5.3 cm in transverse dimension. The double wall endometrial thickness is 1.4 cm. The uterus is smooth in contour and has normal myometrial echogenicity. No visible fibroid There are small nabothian cysts seen in the cervix. Adnexa: Both ovaries are visualized. There is normal color flow to the adnexa. There is no ovarian torsion. There is no pelvic ascites or fluid collection. Right ovary measures 4.0 x 1.8 x 2.4 cm and volume 10.1 mL. There is a dominant follicle measuring 2.1 x 1.7 x 1.7 cm and corpus luteal cyst measuring 1.2 x 1.1 x 1.3 cm. There is normal arterial and venous flow seen to the right ovary. Left ovary measures 5.8 x 3.9 x 4.4 cm and volume 58.1 mL. There is anechoic cyst with thin septation measuring 5.1 x 3.6 x 4.1 cm. Normal arterial and venous flow seen. There is no free fluid in the cul-de-sac. US/US pelvic and transvaginal IMPRESSION: Unremarkable uterus. Small nabothian cysts in the cervix. Small corpus luteal cyst right ovary. Complex cyst left ovary. Dictated By: Mauri Levin MD Signed By: <Electronically signed by Mauri Levin MD in OV> 05/25/22 1345 DD/ 1522 TD/TT: Per Diem Clerk: [facility] External Provider IMG US PROCEDURES Final Result documented in this encounter Visit Diagnoses Diagnosis Iron deficiency- Primary Disorders of iron metabolism documented in this encounter Care Teams Historical Manuscripts Curator Relationship Specialty Start Date End Date Daniela Salmon MD [address] [place] [phone] PCP - General Family Medicine 06/19/13 documented as of this encounter
--- OUTSIDE RECORDS SUMMARY | 2025-01-23 16:48 | XMS_ITS | Clinical Summary ---
Author Organization [employer] Address [address] [place] [address] Care Team Providers Care Wildlife Ecologist Name Role Phone Daniela Salmon MD Primary Care Provider [phone] Allergies Active Allergy Reactions Criticality Noted Date Comments [place]-Containing Products Hives 04/28/2022 Egg-Derived Products 06/07/2017 Other reaction(s): Hives / Skin Rash Iodine Omeprazole Shortness of breath High 06/07/2017 Other reaction(s): Trouble Breathing , Trouble Breathing Shellfish Allergy 04/06/2022 Medications cholecalciferol (Vitamin D-3) 25 MCG (1000 UT) tablet Take 1 capsule by mouth. 11/20/2020 Active terbinafine (LamISIL) 250 MG tablet Take 1 tablet by mouth Once per day. 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 - Seen by activity coordinator on 10/24/2024. Diagnosis tarsal tunnel syndrome and lumbar radiculopathy Assessment & Plan (09/14/2024 10:45 AM EDT): - Evaluate with nerve conduction test - Will check electrolytes and vitamin - Recommended to try pickle juice - Will refer to activity coordinator - Consider evaluation for circulation if all of the tests are non-diagnostic Irregular menstruation 09/01/2022 Assessment & Plan (12/13/2022 7:02 AM EDT): US in Apr 2022 showed ovarian cyst and borderline thickness of endometrial stripe Anticipating evaluation by [facility] soon Assessment & Plan (09/07/2022 7:32 AM EDT): US in Apr 2022 showed ovarian cyst Has upcoming appointment with [facility] Anxiety 09/01/2022 Assessment & Plan (12/22/2024 10:58 AM EDT): - KENIA-7 score 15 on 12/12/2024 -Previously on Wellbutrin 100 mg BID -patient has tried counseling in the past and is hesitant to try counseling at this time. She will let us know if she needs counselor in future. -able to contract her safety Assessment & Plan (12/13/2022 7:06 AM EDT): [...] at this time -will optimize other conditions History of pre-eclampsia 05/01/2022 Assessment & Plan (05/01/2022 6:22 AM EST): -During last of twins [id number] - section on 08/21/20, no complication -continue [...] migraine prn Depression 04/28/2022 Assessment & Plan (12/22/2024 10:58 AM EDT): - PHQ-9 score 21 on 12/02/2024 - Previously on bupropion 100 mg BID -she was able to contract her safety today -she declines BHS Assessment & Plan (12/13/2022 7:11 AM EDT): [...] Bariatric surgery status 04/06/2022 Assessment & Plan (12/22/2024 10:57 AM EDT): -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 Her weight is now below her goal weight Assessment & Plan (09/07/2022 7:31 AM EDT): -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 ([facility]) -s/p abdominoplasty in June 2017 -Encourage to take vitamins -Avoid NSAIDs Assessment & Plan (05/01/2022 6:35 AM EST): -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 ([facility]) -s/p abdominoplasty in June 2017 -Encourage to take vitamins -Avoid NSAIDs Ovarian cyst 10/09/2015 Assessment & Plan (12/13/2022 7:03 AM EDT): Pt had a recent US with [facility], and was told that a stable, benign cyst, which may have resolved. Has upcoming appointment with [facility] Assessment & Plan (09/01/2022 4:55 PM EDT): Has upcoming appointment with [facility] Kidney stone 10/09/2015 Steatosis of liver 10/09/2015 Assessment & Plan (05/01/2022 6:20 AM EST): -continue working on lifestyle modifications -periodic LFT monitoring Allergic rhinitis 04/11/2015 Tobacco use 07/05/2013 Assessment & Plan (12/22/2024 11:00 AM EDT): -She has tried varenicline, nicotine replacement, and bupropionin the past -She was able to stop smoking for a while during last peripartum period, but restarted -Continue working on smoking cessation Assessment & Plan (12/13/2022 7:06 AM EDT): [...] Problem Noted Date Diagnosed Date Resolved Date Obesity (BMI 30.0-34.9) 05/01/202211/25 Assessment & Plan (08/15/2023 6:15 PM EDT): [...] GLP-1 agonist (but difficult to get PA) Diabetes mellitus 04/06/2022 04/28/2022 History and physical examination, immigration 04/06/2004/28/2022 Encounters Date Type Department Care Team Description 12/12/2024 3:45 PM EDT Office Visit [facility] [address] [place] [phone] Daniela Salmon MD Weight loss (Primary Dx); Anemia, unspecified type; Numbness of right foot; Leg cramp; Vitamin D deficiency; Bariatric surgery status; Depression, unspecified depression type; Anxiety; Tobacco use 12/12/2024 Travel 12/11/2024 Telephone [facility] [address] [place] [phone] Daniela Salmon MD chart prep 12/11/2024 Travel from Last 3 Months Immunizations Immunization Administration [...] Answer Date Recorded Patient Health Questionnaire-9 Score 21 12/12/2024 Patient Health Questionnaire-9 Score 21 12/12/2024 Last PHQ-9: Questionnaire Data Not on file 0 12/12/2024 Housing Stability Answer Date Recorded What is your housing situation today? I have jackson pelayo 12/12/[address] you li ve. Do you have problems with any of the following? None of the above 12/12/2024 Food Insecurity Answer Date Recorded Within the past 12 months, y ou worried that your food would run out before you got money to buy more: Never True 12/12/2024 Within the past 12 months,th e food you bought just didn't last and you didn't have enough money to get more: Never True Transportation Answer Date Recorded In the past 12 months, has l ack of transportation kept you from medical appts, meetings, work or from getting things needed for daily living? No 12/12/2024 Utilities Answer Date Recorded In the past 12 months, has t he electric, gas, oil or water company threatened to shut off services in your home? No 12/12/2024 Depression Answer Date Recorded Patient Health Questionnaire-2 Score 6 12/12/2024 Internet Access Answer Date Recorded Internet Access Q1 Yes 12/12/2024 Internet Access Q2 Not on file 12/12/2024 Comments Unknown Sex and Gender Information Value Date Recorded Sex Assigned at Female 02/23/2022 10:17 AM EDT Legal Sex Female 10:17 AM EDT Gender Identity Female 02/23/2022 10:17 AM EDT Sexual Orientation Straight 02/23/2022 10 :17 AM EDT Last Filed Vital Signs Vital Sign Reading Time Taken Comments Blood Pressure 110/80 12/12/2024 4:40 PM EDT Pulse 80 12/12/2024 4:40 PM EDT Temperature 36.4 C (97.5 F) 12/12/2024 4:40 PM EDT Respiratory Rate 16 12/12/2024 4:40 PM EDT Oxygen Saturation 99% 12/07/2022 3:43 PM EDT Inhaled Oxygen Concentration - - Weight 57.3 kg (126 lb 6.4 oz) 12/12/2024 4:40 P M EDT Height 162.1 cm (5' 3.83 ) 12/07/2022 3:43 PM ED T Body Mass Index 21.81 12/07/2022 3:43 PM EDT Plan of Treatment Upcoming Encounters Date Type Department Care Team (Late st Contact Info) Description 03/19/2025 10:15 AM EST Office Visit [facility] [address] [place] [address] Daniela Salmon MD [address] [place] [address] Health Maintenance Due Date Last Done Comments CT Colonography 1978 FIT DNA/Cologuard 1978 FIT 1978 FOBT 1980 Sigmoidoscopy 1980 Family Planning (PISQ) 1993 Pneumococcal Vaccine: Pediatrics (0 to 5 Years) and At-Risk Patients (6 to 49) Years (2 of 2 - PCV) 08/17/2014 08/17/2013 COVID-19 Vaccine ( season) 2024 04/28/2022, 12/10/2020, 11/19/2020 Influenza Vaccine (#1) 2024 Cervical Cancer Screening 03/27/2025 HPV/Cotest 03/27/2025 03/27/2020, 01/04/2018 Pap Smear 03/27/2025 03/27/2020 Depression Monitoring 06/14/2025 12/12/2024, 025 Disability Screening 12/11/2025 12/11/2024 Alcohol/Substance Use Screening 12/12/2025 12/12/2024 SDOH Screening 12/12/2025 12/12/2024 Tobacco Screening 12/22/2025 12/22/2024 Mammogram 01/10/2026 01/11/2024, 12/25, 01/05/2023 Zoster Vaccines (1 of 2) 02/15/2028 Lipid Panel 05/13/2029 05/13/2024, 10/26, 04/28/2022, Additional history exists DTaP/Tdap/Td Vaccines (3 [...] Procedure Name Priority Date/Time Associated Diagnosis Comments AMB REFERRAL TO PODIATRY Routine 11/14/2024 Numbness of right foot AMB REFERRAL TO WEIGHT MANAGEMENT Routine 11/01/2024 Obesity (BMI 30.0-34.9) LIPID PANEL, STANDARD Routine 05/13/2024 9:48 AM EST BI MAMMOGRAM SCREEN W AHMET W IMPLANTS MAYNOR Routine 01/11/2024 4:00 PM EDT COLONOSCOPY Routine 05/05/2023 ZZZ HISTORICAL HEPATITIS C AB W/REFL TO HCV RNA, QN, PCR Routine 11/19/2020 11:52 AM EDT HIV 1/2 ANTIGEN/ANTIBODY, FOURTH GENERATION W/RFL Routine 11/19/2020 11:52 AM EDT PAP/HPV Routine 03/27/2020 from Last 3 Months or Most Recently Relevant to Health Maintenance Results * Referral to Podiatry (11/14/2024) us Daniela Salmon MD OUTPATIENT REFERRAL ORDERABLES F inal Result * Referral to Weight Management (11/01/2024) us Daniela Salmon MD OUTPATIENT REFERRAL ORDERABLES F inal Result * (ABNORMAL) Lipid Panel, Standard (05/13/2024 9:48 AM EST) Triglycerides 107 <150 mg/dL [facility] Comment:Desirable Triglyceri de: less than 150 mg/dLBorderline High Triglyceride 150-199 mg/dLHigh Triglyceride: 200-499 mg/dLVery High Triglyceride: greater than or equal to 5OO mg/dL Cholesterol 182 <200 mg/dL [facility] Comment:Desirable Cholestero l: less than 200 mg/dLBorderline High Cholesterol: 200-239 mg/dLHigh Cholesterol: greater than 239 mg/dL LDL Cholesterol Calculated 121(H) <100 mg/dL [facility] Comment:Desirable LDL: less than 100 mg/dLNear Optimal/Above Optimal LDL: 110- 129 mg/dLBorderline High LDL: 130-159 mg/dLHigh LDL: 160-189 mg/dLVery High LDL: greater than or equal to 190 mg/dL HDL Cholesterol 40(L) >40 mg/dL [facility] Comment:Desirable HDL: great er than 40 mg/dL Note: This HDL assay may give artificially low results in patients with liver disease. 05/13/2024 9:48 AM EST 05/13/2024 9:48 AM EST us Daniela Salmon MD LAB BLOOD ORDERABLES Final Resul t [facility] [address] [place] [address] [phone] * BI Mammogram Screen w/ Ahmet w/ Implants Maynor (01/11/2024 4:00 PM EDT) Anatomical Region Laterality Modality Mammography 01/11/2024 4:00 PM EDT Narrative 01/25/2024 10:34 AM EDT [facility] [address] [place] [address] Mammography Report Signed Patient: Yanely Hebert MR#: [id number] : 1980 Acct:[id number] Age/Sex: 43 / F ADM Date: 01/11/24 Loc: [facility] Attending Dr: Daniela Salmon MD Ordering Physician: Daniela Salmon MD Results: 2Benign F indings Date of Service: 01/11/24 Follow Up: 1 Year From [facility] Mammogram Procedure(s): MM tomosynthesis screen imp BI Accession Number(s): [id number] cc: Daniela Salmon MD EXAMINATION: MM SCREENING [...] Alina Pryor DO 01/25/2024 10:31 AM EDT Dictated By: Alina Pryor DO Signed By: <Electronically signed by Alina Pryor DO in OV> 01/25/24 1031 DD/ 1600 TD/TT: 01/11/24 1618 Senior Librarian: Procedure Note Donotuseinterpreter, Image - [facility]/25/[facility] [address] [place] [address] Mammography Report Signed Patient: Filiberto HebertR#: [id number] : 1980Acct:[id number] Age/Sex: 43 / FADM Date: 01/11/24 Loc: [facility] Attending Dr: Daniela Salmon MD Ordering Physician: Daniela Salmon MDResults: 2Benign F indings Date of Service: 01/11/24Follow Up: 1 Year From Orig inal Mammogram Procedure(s): MM tomosynthesis screen imp BI Accession Number(s): [id number] cc: Daniela Salmon MD EXAMINATION: MM SCREENING [...] 01/25/24 1031 DD/ 1600 TD/TT: 01/11/24 1618 Senior Librarian: Daniela Salmon MD IMG BI PROCEDURES Edited Result - Final * Hm Colonoscopy (05/05/2023) Pathologist [facility] Colonoscopy Normal Normal Historical Provider MD HEALTH MAINTENANCE Final Result * HEPATITIS C AB W/REFL TO HCV RNA, QN, PCR (11/19/2020 11:52 AM EDT) [facility] HEPATITIS C ANTIBODY NON-REACT CHELSIE NON-REACT CHELSIE [facility] [facility] INDEX 0.02 <1.00 [facility] Comment: HCV antibody was non-reactive. There is no laboratory evidence of HCV infection. In most cases, no further action is required. However, if recent HCV exposure is suspected, a test for HCV RNA (test code 95957) is suggested. For additional information please refer to http://education.TRADE TO REBATE.BRAIN/faq/LQC66i4 (This link is being provided for informational/ educational purposes only.) 11/19/2020 11:5 2 AM EDT Daniela Salmon MD HISTORICAL/NON ORDERABLE LABS Fi nal Result [facility] [address] * HIV 1/2 ANTIGEN/ANTIBODY,FOURTH GENERATION W/RFL (11/19/2020 11:52 AM EDT) [facility] HIV-1/2 ANTIGEN AND ANTIBODIES, 4TH GENERATION W/ REFLEX NON-REACT CHELSIE NON-REACT CHELSIE [facility] Comment: HIV-1 antigen and HIV-1/HIV-2 antibodies were not detected. There is no laboratory evidence of HIV infection. PLEASE NOTE: This information has been disclosed to you from records whose confidentiality may be protected by state law. If your state requires such protection, then the state law prohibits you from making any further disclosure of the information without the specific written consent of the person to whom it pertains, or as otherwise permitted by law. A general authorization for the release of medical or other information is NOT sufficient for this purpose. For additional information please refer to http://education.TruLeaf/faq/WEV347 (This link is being provided for informational/ educational purposes only.) The performance of this assay has not been clinically validated in patients less than 2 years old. 11/19/2020 11:5 2 AM EDT Daniela Salmon MD LAB BLOOD ORDERABLES Final Resul t [facility] [address] * Pap Smear (03/27/2020) Pap Negative for intraephithelial lesion or malignancy Negative for intraephithelial lesion or malignancy, Other HPV Undetected Undetected, Indeterminate, Quantitative, Not Detected [facility] Provider HEALTH MAINTENANCE Final Result from Last 3 Months or Most Recently Relevant to Health Maintenance [facility] Care Teams Wildlife Ecologist Relationship Specialty Start Date End Date Daniela Salmon MD [address] [place] [phone] PCP - General Family Medicine 06/19/13
--- OUTSIDE RECORDS SUMMARY | 2025-01-23 16:48 | XMS_ITS | Patient Health Record ---
Author Organization [facility] [address] Address [address] [place] [address] Care Team Providers Care Service Superintendent Name Role Phone Daniela Salmon Primary Care Provider ANNALEE Watt Unavailable [phone] Allergies Allergen (clinical drug ingredient) Drug/Non Drug Allergy documented on EMR Reaction Allergy Type Onset Date Status omeprazole PriLOSEC Unknown Drug Allergy Active Reason For Referral Diagnosis 1 Obesity, class 1 (E6 6.811) Referred Provider Specialty Weight Manag ement Referral Priority Routine Medications Medication SIG (Take, Route, Fr equency, Duration) Notes Start Date End Date Status Zepbound 2.5 MG/0.5ML inject 2.5mg Subcu taneous once weekly; Duration: 30 days Active Zepbound 7.5 MG/0.5ML Inject 7.5mg Subcu taneous weekly; Duration: 30 days Active Problems Problem Type SNOMED Code ICD Code Onset Dates Problem Status W/U Status Risk Notes Problem Anxiety disorder (137546110) Anxiety disorder, unspecified (F41.9) Active confirmed Problem Elevated blood pressure reading without diagnosis of hypertension (761803900) Elevated BP without diagnosis of hypertension (R03.0) Active confirmed Problem Overweight (659190699) Overweight (BMI 25.0-29.9) (E66.3) Active confirmed Problem Depression (377818369) Depression, unspecified (F32.A) Active confirmed Problem Gastric sleeve (physical object) (846296354) H/O gastric sleeve (Z90.3) Active confirmed Problem Obstructive sleep apnea syndrome (46816700) HILTON on CPAP (G47.33) Active confirmed Problem History of obesity (945056523) History of obesity (Z86.39) Active confirmed Vital Signs Heart Rate 73 /min 12/13/2024 Oximetry 99 % 12/13/2024 Blood pressure diastolic 70 mm Hg 12/13/2024 Height 63 in 12/13/2024 Blood pressure systolic 108 mm Hg 12/13/2024 Weight 125.8 lbs 12/13/2024 BMI 22.28 kg/m2 12/13/2024 Encounters Encounter Location Date Provider Diagnosis [facility] [address] [address] 03/15/2024 ANNALEE REBA Obesity (BMI 30-39.9 ) E66.9 ; BMI 30.0-30.9,adult Z68.30 ; HILTON on CPAP G47.33 ; Elevated BP without diagnosis of hypertension R03.0 ; Anxiety disorder, unspecified F41.9 ; Depression, unspecified F32.A ; H/O gastric sleeve Z90.3 and Nutritional counseling Z71.3 [facility] [address] [address] 05/01/2024 ANNALEE REBA Overweight (BMI 25.0-29.9) E66.3 ; BMI 28.0-28.9,adult Z68.28 ; HILTON on CPAP G47.33 ; Elevated BP without diagnosis of hypertension R03.0 ; Anxiety disorder, unspecified F41.9 ; Depression, unspecified F32.A ; H/O gastric sleeve Z90.3 and Nutritional counseling Z71.3 [facility] [address] [address] 05/31/2024 ANNALEE REBA Overweight (BMI 25.0-29.9) E66.3 ; BMI 27.0-27.9,adult Z68.27 ; HILTON on CPAP G47.33 ; H/O gastric sleeve Z90.3 and Nutritional counseling Z71.3 [facility] [address] [address] 07/12/2024 ANNALEE REBA Overweight (BMI 25.0-29.9) E66.3 ; BMI 25.0-25.9,adult Z68.25 ; HILTON on CPAP G47.33 ; H/O gastric sleeve Z90.3 and Nutritional counseling Z71.3 [facility] [address] [address] 08/16/2024 ANNALEE REBA Overweight (BMI 25.0-29.9) E66.3 ; BMI 25.0-25.9,adult Z68.25 ; HILTON on CPAP G47.33 ; H/O gastric sleeve Z90.3 and Nutritional counseling Z71.3 [facility] [address] [address] 09/20/2024 [place]LEE [place] History of obesity Z86.39 ; BMI 24.0-24.9, adult Z68.24 ; HILTON on CPAP G47.33 ; H/O gastric sleeve Z90.3 ; Nutritional counseling Z71.3 and Encounter for examination of blood pressure without abnormal findings Z01.30 [facility] [address] [address] 11/01/2024 ANNALEE [place] BMI 23.0-23.9, adult Z68.23 ; History of obesity Z86.39 ; HILTON on CPAP G47.33 ; H/O gastric sleeve Z90.3 ; Nutritional counseling Z71.3 and Encounter for examination of blood pressure without abnormal findings Z01.30 [facility] [address] [address] 12/13/2024 ANNALEE [place] BMI 22.0-22.9, adult Z68.22 ; HILTON on CPAP G47.33 ; History of obesity Z86.39 ; H/O gastric sleeve Z90.3 ; Nutritional counseling Z71.3 and Encounter for examination of blood pressure without abnormal findings Z01.30 [facility] [address] [address] 03/15/2024 [facility] [address] [address] 03/21/2024 [facility] [address] [place] [address] 04/13/2024 [facility] Obesity (BMI 30-39.9 ) E66.9 [facility] [address] [address] 09/21/2024 ANNALEE [place] Assessments Encounter Date Diagnosis (ICD Code) Assessment Notes Treatment Notes Treatment Clinical Notes Section Notes 03/15/2024 Obesity (BMI 30-39.9) (ICD-10 - E66.9) Yanely is a 44-year-old female with a PMH of gastric sleeve, HILTON requiring CPAP, elevated BP without dx of HTN, anxiety, depression that presents for weight management consult. Patient was reassured and welcomed to the practice. Discussed [facility] holistic and medical approach to weight loss with emphasis on lifestyle modification. Patient is educated that a healthy lifestyle aids in combating obesity as well as reducing the risk of developing obesity-related medical complications including but not limited to diabetes and cardiovascular disease. Detailed education provided about taking steps to initiate sustainable lifestyle changes including incorporating regular physical activity, making healthy diet choices, and prioritizing mental health. Information provided about literature including The Food Rules by Andry Huston and Eat Fat Get Lean by Dr Thom Melvin. Handouts including lifestyle checklist, protein content of food, low calorie snacks, and cholesterol information sheet provided. Diagnostic testing/ SECA scale offered. Discussed the importance of regular SECA scale measurements to ensure healthy weight loss. 03/15/24:Weight: 171.9, BMI: 30.5. Reviewed SECA/goals for implementing sustainable lifestyle changes. Patient is encouraged to increase physical activity, goal 8-10k steps/day. Also discussed the importance of strength training with proper safety/body mechanics for maintenance of muscle mass/bone health. Patient encouraged to drink 60-80oz water/day. Reviewed nutrition, recommending food diary x 1 week to ensure adequate caloric/protein intake. Goal of 80-100g protein/day. Reviewed risks, benefits, and side effects of weight management medications including phentermine, Topamax, Contrave, metformin, and GLP-1 agonist. Patient interested in GLP-1 agonist Zepbound. Denies personal/family history of medullary thyroid cancer/M EN syndrome. Rx for Zepbound 2.5 mg SC weekly sent to pharmacy. Reviewed expectations for PA process/insurance coverage. If he would like to initiate therapy with an office compounded to his appetite injection, 2.5 mg administered in office today. After consultation and careful review of medical history, this patient would benefit from Zepbound based off of the following criteria met: Patient is over the age of 18 with a BMI of 30.5. Additional comorbidities include HILTON requiring CPAP. Patient has trialed other methods of weight loss including gastric sleeve, phentermine, Wegovy and improving diet and exercise. This medication is prescribed by or in consultation with a board-certified obesity and weight management physician (Dr. Sulema Moreno or Dr. Aldo Moreno). All questions answered to the patient's satisfaction. Patient demonstrates understanding of diagnosis and treatments discussed. Follow-up in 4 weeks, sooner should any questions/concerns arise. Case discussed with collaborating physician Brown Moreno who has reviewed the assessment/plan. Chart, medications, labs, and vital signs reviewed. Dictation completed with the use of [employer] voice recognition software, prone to medical misidentifications and grammatical errors. All errors are unintentional. Although the practitioner does try to identify and correct errors, some may be present. Please do not hesitate to contact the practitioner for clarification. Total time was 60 minutes spent with >50% on coordination of care and patient education. 03/15/2024 BMI 30.0-30.9,adult (ICD-10 - Z68.30) Yanely is a 44-year-old female with a PMH of gastric sleeve, HILTON requiring CPAP, elevated BP without dx of HTN, anxiety, depression that presents for weight management consult. Patient was reassured and welcomed to the practice. Discussed [facility] holistic and medical approach to weight loss with emphasis on lifestyle modification. Patient is educated that a healthy lifestyle aids in combating obesity as well as reducing the risk of developing obesity-related medical complications including but not limited to diabetes and cardiovascular disease. Detailed education provided about taking steps to initiate sustainable lifestyle changes including incorporating regular physical activity, making healthy diet choices, and prioritizing mental health. Information provided about literature including The Food Rules by Andry Huston and Eat Fat Get Lean by Dr Thom Melvin. Handouts including lifestyle checklist, protein content of food, low calorie snacks, and cholesterol information sheet provided. Diagnostic testing/ SECA scale offered. Discussed the importance of regular SECA scale measurements to ensure healthy weight loss. 03/15/24:Weight: 171.9, BMI: 30.5. Reviewed SECA/goals for implementing sustainable lifestyle changes. Patient is encouraged to increase physical activity, goal 8-10k steps/day. Also discussed the importance of strength training with proper safety/body mechanics for maintenance of muscle mass/bone health. Patient encouraged to drink 60-80oz water/day. Reviewed nutrition, recommending food diary x 1 week to ensure adequate caloric/protein intake. Goal of 80-100g protein/day. Reviewed risks, benefits, and side effects of weight management medications including phentermine, Topamax, Contrave, metformin, and GLP-1 agonist. Patient interested in GLP-1 agonist Zepbound. Denies personal/family history of medullary thyroid cancer/M EN syndrome. Rx for Zepbound 2.5 mg SC weekly sent to pharmacy. Reviewed expectations for PA process/insurance coverage. If he would like to initiate therapy with an office compounded to his appetite injection, 2.5 mg administered in office today. After consultation and careful review of medical history, this patient would benefit from Zepbound based off of the following criteria met: Patient is over the age of 18 with a BMI of 30.5. Additional comorbidities include HILTON requiring CPAP. Patient has trialed other methods of weight loss including gastric sleeve, phentermine, Wegovy and improving diet and exercise. This medication is prescribed by or in consultation with a board-certified obesity and weight management physician (Dr. Sulema Moreno or Dr. Aldo Moreno). All questions answered to the patient's satisfaction. Patient demonstrates understanding of diagnosis and treatments discussed. Follow-up in 4 weeks, sooner should any questions/concerns arise. Case discussed with collaborating physician Brown Moreno who has reviewed the assessment/plan. Chart, medications, labs, and vital signs reviewed. Dictation completed with the use of [employer] voice recognition software, prone to medical misidentifications and grammatical errors. All errors are unintentional. Although the practitioner does try to identify and correct errors, some may be present. Please do not hesitate to contact the practitioner for clarification. Total time was 60 minutes spent with >50% on coordination of care and patient education. 04/13/2024 Obesity (BMI 30-39.9) (ICD-10 - E66.9) 05/01/2024 BMI 28.0-28.9,adult (ICD-10 - Z68.28) Yanely is a 44-year-old female with a PMH of gastric sleeve, HILTON requiring CPAP, elevated BP without dx of HTN, anxiety, depression that presents for weight management follow-up. Reviewed [facility] holistic and medical approach to weight loss with emphasis on lifestyle modification. 05/01/2024: Weight: 159, BMI: 28.16. SECA reviewed, reveals primarily fat loss within the minimal muscle loss. Patient is encouraged to continue making health-conscious diet choices. Reviewed the importance of adequate nutrition in the setting of GLP-1 induced appetite suppression. Reminded of the importance as food is fuel. Reviewed protein goal -goal 80 g/day. Patient encouraged to continue to work to increase physical activity with added strength training twice-weekly. As patient has been on Zepbound 2.5 for 4+ weeks, interested in increasing dose. Rx for Zepbound 5 mg SC weekly sent to pharmacy. 03/15/24:Weight: 171.9, BMI: 30.5. Reviewed SECA/goals for implementing sustainable lifestyle changes. Patient is encouraged to increase physical activity, goal 8-10k steps/day. Also discussed the importance of strength training with proper safety/body mechanics for maintenance of muscle mass/bone health. Patient encouraged to drink 60-80oz water/day. Reviewed nutrition, recommending food diary x 1 week to ensure adequate caloric/protein intake. Goal of 80-100g protein/day. Reviewed risks, benefits, and side effects of weight management medications including phentermine, Topamax, Contrave, metformin, and GLP-1 agonist. Patient interested in GLP-1 agonist Zepbound. Denies personal/family history of medullary thyroid cancer/M EN syndrome. Rx for Zepbound 2.5 mg SC weekly sent to pharmacy. Reviewed expectations for PA process/insurance coverage. If he would like to initiate therapy with an office compounded to his appetite injection, 2.5 mg administered in office today. All questions answered to the patient's satisfaction. Patient demonstrates understanding of diagnosis and treatments discussed. Follow-up in 4 weeks, sooner should any questions/concerns arise. Case discussed with collaborating physician Brown Moreno who has reviewed the assessment/plan. Chart, medications, labs, and vital signs reviewed. Dictation completed with the use of [employer] voice recognition software, prone to medical misidentifications and grammatical errors. All errors are unintentional. Although the practitioner does try to identify and correct errors, some may be present. Please do not hesitate to contact the practitioner for clarification. Total time was 30 minutes spent with >50% on coordination of care and patient education. 05/01/2024 Overweight (BMI 25.0-29.9) (ICD-10 - E66.3) Yanely is a 44-year-old female with a PMH of gastric sleeve, HILTON requiring CPAP, elevated BP without dx of HTN, anxiety, depression that presents for weight management follow-up. Reviewed [facility] holistic and medical approach to weight loss with emphasis on lifestyle modification. 05/01/2024: Weight: 159, BMI: 28.16. SECA reviewed, reveals primarily fat loss within the minimal muscle loss. Patient is encouraged to continue making health-conscious diet choices. Reviewed the importance of adequate nutrition in the setting of GLP-1 induced appetite suppression. Reminded of the importance as food is fuel. Reviewed protein goal -goal 80 g/day. Patient encouraged to continue to work to increase physical activity with added strength training twice-weekly. As patient has been on Zepbound 2.5 for 4+ weeks, interested in increasing dose. Rx for Zepbound 5 mg SC weekly sent to pharmacy. 03/15/24:Weight: 171.9, BMI: 30.5. Reviewed SECA/goals for implementing sustainable lifestyle changes. Patient is encouraged to increase physical activity, goal 8-10k steps/day. Also discussed the importance of strength training with proper safety/body mechanics for maintenance of muscle mass/bone health. Patient encouraged to drink 60-80oz water/day. Reviewed nutrition, recommending food diary x 1 week to ensure adequate caloric/protein intake. Goal of 80-100g protein/day. Reviewed risks, benefits, and side effects of weight management medications including phentermine, Topamax, Contrave, metformin, and GLP-1 agonist. Patient interested in GLP-1 agonist Zepbound. Denies personal/family history of medullary thyroid cancer/M EN syndrome. Rx for Zepbound 2.5 mg SC weekly sent to pharmacy. Reviewed expectations for PA process/insurance coverage. If he would like to initiate therapy with an office compounded to his appetite injection, 2.5 mg administered in office today. All questions answered to the patient's satisfaction. Patient demonstrates understanding of diagnosis and treatments discussed. Follow-up in 4 weeks, sooner should any questions/concerns arise. Case discussed with collaborating physician Brown Moreno who has reviewed the assessment/plan. Chart, medications, labs, and vital signs reviewed. Dictation completed with the use of [employer] voice recognition software, prone to medical misidentifications and grammatical errors. All errors are unintentional. Although the practitioner does try to identify and correct errors, some may be present. Please do not hesitate to contact the practitioner for clarification. Total time was 30 minutes spent with >50% on coordination of care and patient education. 05/31/2024 BMI 27.0-27.9,adult (ICD-10 - Z68.27) Yanely is a 44-year-old female with a PMH of gastric sleeve, HILTON requiring CPAP, elevated BP without dx of HTN, anxiety, depression that presents for weight management follow-up. Reviewed [facility] holistic and medical approach to weight loss with emphasis on lifestyle modification. 05/31/2024: Weight: 156, BMI: 27.6. Patient down 3 pounds. SECA reviewed, reveals 3 pounds of fat loss. Reviewed the importance of adequate nutrition in terms of calorie/protein intake to ensure healthy metabolism. The patient is encouraged to incorporate light meals more frequently. She is additionally encouraged to continue walking regularly discussed importance of strength training for continued maintenance of muscle mass. Patient will finish off current prescription for 5 mg, will send increased dose (Zepbound 7.5 mg) to begin upon completion. 05/01/2024: Weight: 159, BMI: 28.16. SECA reviewed, reveals primarily fat loss within the minimal muscle loss. Patient is encouraged to continue making health-conscious diet choices. Reviewed the importance of adequate nutrition in the setting of GLP-1 induced appetite suppression. Reminded of the importance as food is fuel. Reviewed protein goal -goal 80 g/day. Patient encouraged to continue to work to increase physical activity with added strength training twice-weekly. As patient has been on Zepbound 2.5 for 4+ weeks, interested in increasing dose. Rx for Zepbound 5 mg SC weekly sent to pharmacy. 03/15/24:Weight: 171.9, BMI: 30.5. Reviewed SECA/goals for implementing sustainable lifestyle changes. Patient is encouraged to increase physical activity, goal 8-10k steps/day. Also discussed the importance of strength training with proper safety/body mechanics for maintenance of muscle mass/bone health. Patient encouraged to drink 60-80oz water/day. Reviewed nutrition, recommending food diary x 1 week to ensure adequate caloric/protein intake. Goal of 80-100g protein/day. Reviewed risks, benefits, and side effects of weight management medications including phentermine, Topamax, Contrave, metformin, and GLP-1 agonist. Patient interested in GLP-1 agonist Zepbound. Denies personal/family history of medullary thyroid cancer/M EN syndrome. Rx for Zepbound 2.5 mg SC weekly sent to pharmacy. Reviewed expectations for PA process/insurance coverage. If he would like to initiate therapy with an office compounded to his appetite injection, 2.5 mg administered in office today. All questions answered to the patient's satisfaction. Patient demonstrates understanding of diagnosis and treatments discussed. Follow-up in 4 weeks, sooner should any questions/concerns arise. Case discussed with collaborating physician Brown Moreno who has reviewed the assessment/plan. Chart, medications, labs, and vital signs reviewed. Dictation completed with the use of [employer] voice recognition software, prone to medical misidentifications and grammatical errors. All errors are unintentional. Although the practitioner does try to identify and correct errors, some may be present. Please do not hesitate to contact the practitioner for clarification. Total time was 30 minutes spent with >50% on coordination of care and patient education. 05/31/2024 Overweight (BMI 25.0-29.9) (ICD-10 - E66.3) Yanely is a 44-year-old female with a PMH of gastric sleeve, HILTON requiring CPAP, elevated BP without dx of HTN, anxiety, depression that presents for weight management follow-up. Reviewed [facility] holistic and medical approach to weight loss with emphasis on lifestyle modification. 05/31/2024: Weight: 156, BMI: 27.6. Patient down 3 pounds. SECA reviewed, reveals 3 pounds of fat loss. Reviewed the importance of adequate nutrition in terms of calorie/protein intake to ensure healthy metabolism. The patient is encouraged to incorporate light meals more frequently. She is additionally encouraged to continue walking regularly discussed importance of strength training for continued maintenance of muscle mass. Patient will finish off current prescription for 5 mg, will send increased dose (Zepbound 7.5 mg) to begin upon completion. 05/01/2024: Weight: 159, BMI: 28.16. SECA reviewed, reveals primarily fat loss within the minimal muscle loss. Patient is encouraged to continue making health-conscious diet choices. Reviewed the importance of adequate nutrition in the setting of GLP-1 induced appetite suppression. Reminded of the importance as food is fuel. Reviewed protein goal -goal 80 g/day. Patient encouraged to continue to work to increase physical activity with added strength training twice-weekly. As patient has been on Zepbound 2.5 for 4+ weeks, interested in increasing dose. Rx for Zepbound 5 mg SC weekly sent to pharmacy. 03/15/24:Weight: 171.9, BMI: 30.5. Reviewed SECA/goals for implementing sustainable lifestyle changes. Patient is encouraged to increase physical activity, goal 8-10k steps/day. Also discussed the importance of strength training with proper safety/body mechanics for maintenance of muscle mass/bone health. Patient encouraged to drink 60-80oz water/day. Reviewed nutrition, recommending food diary x 1 week to ensure adequate caloric/protein intake. Goal of 80-100g protein/day. Reviewed risks, benefits, and side effects of weight management medications including phentermine, Topamax, Contrave, metformin, and GLP-1 agonist. Patient interested in GLP-1 agonist Zepbound. Denies personal/family history of medullary thyroid cancer/M EN syndrome. Rx for Zepbound 2.5 mg SC weekly sent to pharmacy. Reviewed expectations for PA process/insurance coverage. If he would like to initiate therapy with an office compounded to his appetite injection, 2.5 mg administered in office today. All questions answered to the patient's satisfaction. Patient demonstrates understanding of diagnosis and treatments discussed. Follow-up in 4 weeks, sooner should any questions/concerns arise. Case discussed with collaborating physician Brown Moreno who has reviewed the assessment/plan. Chart, medications, labs, and vital signs reviewed. Dictation completed with the use of [employer] voice recognition software, prone to medical misidentifications and grammatical errors. All errors are unintentional. Although the practitioner does try to identify and correct errors, some may be present. Please do not hesitate to contact the practitioner for clarification. Total time was 30 minutes spent with >50% on coordination of care and patient education. 07/12/2024 BMI 25.0-25.9,adult (ICD-10 - Z68.25) Yanely is a 44-year-old female with a PMH of gastric sleeve, HILTON requiring CPAP, elevated BP without dx of HTN, anxiety, depression that presents for weight management follow-up. Reviewed [facility] holistic and medical approach to weight loss with emphasis on lifestyle modification. 07/12/2024: Weight: 146, BMI: 25.8. Patient down 10 pounds. Seca reviewed, reveals primarily loss of fat mass. Patient is encouraged to continue prioritizing protein intake -goal 80 g/day. She is additionally encouraged to continue walking regularly with added strength training 2-3 times weekly. Plan to continue 7.5 mg of Zepbound and follow-up in 1 month. 05/31/2024: Weight: 156, BMI: 27.6. Patient down 3 pounds. SECA reviewed, reveals 3 pounds of fat loss. Reviewed the importance of adequate nutrition in terms of calorie/protein intake to ensure healthy metabolism. The patient is encouraged to incorporate light meals more frequently. She is additionally encouraged to continue walking regularly discussed importance of strength training for continued maintenance of muscle mass. Patient will finish off current prescription for 5 mg, will send increased dose (Zepbound 7.5 mg) to begin upon completion. 05/01/2024: Weight: 159, BMI: 28.16. SECA reviewed, reveals primarily fat loss within the minimal muscle loss. Patient is encouraged to continue making health-conscious diet choices. Reviewed the importance of adequate nutrition in the setting of GLP-1 induced appetite suppression. Reminded of the importance as food is fuel. Reviewed protein goal -goal 80 g/day. Patient encouraged to continue to work to increase physical activity with added strength training twice-weekly. As patient has been on Zepbound 2.5 for 4+ weeks, interested in increasing dose. Rx for Zepbound 5 mg SC weekly sent to pharmacy. 03/15/24:Weight: 171.9, BMI: 30.5. Reviewed SECA/goals for implementing sustainable lifestyle changes. Patient is encouraged to increase physical activity, goal 8-10k steps/day. Also discussed the importance of strength training with proper safety/body mechanics for maintenance of muscle mass/bone health. Patient encouraged to drink 60-80oz water/day. Reviewed nutrition, recommending food diary x 1 week to ensure adequate caloric/protein intake. Goal of 80-100g protein/day. Reviewed risks, benefits, and side effects of weight management medications including phentermine, Topamax, Contrave, metformin, and GLP-1 agonist. Patient interested in GLP-1 agonist Zepbound. Denies personal/family history of medullary thyroid cancer/M EN syndrome. Rx for Zepbound 2.5 mg SC weekly sent to pharmacy. Reviewed expectations for PA process/insurance coverage. If he would like to initiate therapy with an office compounded to his appetite injection, 2.5 mg administered in office today. All questions answered to the patient's satisfaction. Patient demonstrates understanding of diagnosis and treatments discussed. Follow-up in 4 weeks, sooner should any questions/concerns arise. Case discussed with collaborating physician Brown Moreno who has reviewed the assessment/plan. Chart, medications, labs, and vital signs reviewed. Dictation completed with the use of [employer] voice recognition software, prone to medical misidentifications and grammatical errors. All errors are unintentional. Although the practitioner does try to identify and correct errors, some may be present. Please do not hesitate to contact the practitioner for clarification. Total time was 30 minutes spent with >50% on coordination of care and patient education. 07/12/2024 Overweight (BMI 25.0-29.9) (ICD-10 - E66.3) Yanely is a 44-year-old female with a PMH of gastric sleeve, HILTON requiring CPAP, elevated BP without dx of HTN, anxiety, depression that presents for weight management follow-up. Reviewed [facility] holistic and medical approach to weight loss with emphasis on lifestyle modification. 07/12/2024: Weight: 146, BMI: 25.8. Patient down 10 pounds. Seca reviewed, reveals primarily loss of fat mass. Patient is encouraged to continue prioritizing protein intake -goal 80 g/day. She is additionally encouraged to continue walking regularly with added strength training 2-3 times weekly. Plan to continue 7.5 mg of Zepbound and follow-up in 1 month. 05/31/2024: Weight: 156, BMI: 27.6. Patient down 3 pounds. SECA reviewed, reveals 3 pounds of fat loss. Reviewed the importance of adequate nutrition in terms of calorie/protein intake to ensure healthy metabolism. The patient is encouraged to incorporate light meals more frequently. She is additionally encouraged to continue walking regularly discussed importance of strength training for continued maintenance of muscle mass. Patient will finish off current prescription for 5 mg, will send increased dose (Zepbound 7.5 mg) to begin upon completion. 05/01/2024: Weight: 159, BMI: 28.16. SECA reviewed, reveals primarily fat loss within the minimal muscle loss. Patient is encouraged to continue making health-conscious diet choices. Reviewed the importance of adequate nutrition in the setting of GLP-1 induced appetite suppression. Reminded of the importance as food is fuel. Reviewed protein goal -goal 80 g/day. Patient encouraged to continue to work to increase physical activity with added strength training twice-weekly. As patient has been on Zepbound 2.5 for 4+ weeks, interested in increasing dose. Rx for Zepbound 5 mg SC weekly sent to pharmacy. 03/15/24:Weight: 171.9, BMI: 30.5. Reviewed SECA/goals for implementing sustainable lifestyle changes. Patient is encouraged to increase physical activity, goal 8-10k steps/day. Also discussed the importance of strength training with proper safety/body mechanics for maintenance of muscle mass/bone health. Patient encouraged to drink 60-80oz water/day. Reviewed nutrition, recommending food diary x 1 week to ensure adequate caloric/protein intake. Goal of 80-100g protein/day. Reviewed risks, benefits, and side effects of weight management medications including phentermine, Topamax, Contrave, metformin, and GLP-1 agonist. Patient interested in GLP-1 agonist Zepbound. Denies personal/family history of medullary thyroid cancer/M EN syndrome. Rx for Zepbound 2.5 mg SC weekly sent to pharmacy. Reviewed expectations for PA process/insurance coverage. If he would like to initiate therapy with an office compounded to his appetite injection, 2.5 mg administered in office today. All questions answered to the patient's satisfaction. Patient demonstrates understanding of diagnosis and treatments discussed. Follow-up in 4 weeks, sooner should any questions/concerns arise. Case discussed with collaborating physician Brown Moreno who has reviewed the assessment/plan. Chart, medications, labs, and vital signs reviewed. Dictation completed with the use of [employer] voice recognition software, prone to medical misidentifications and grammatical errors. All errors are unintentional. Although the practitioner does try to identify and correct errors, some may be present. Please do not hesitate to contact the practitioner for clarification. Total time was 30 minutes spent with >50% on coordination of care and patient education. 08/16/2024 Overweight (BMI 25.0-29.9) (ICD-10 - E66.3) Yanely is a 44-year-old female with a PMH of gastric sleeve, HILTON requiring CPAP, elevated BP without dx of HTN, anxiety, depression that presents for weight management follow-up. Reviewed [facility] holistic and medical approach to weight loss with emphasis on lifestyle modification. 08/16/24: Weight: 143, BMI: 25.3. Patient down 3 pounds. SECA reviewed, reveals loss of maintenance of healthy muscle mass. Fat mass is very near normal range. Again reviewed the importance of adequate nutrition in the setting of GLP-1 induced appetite suppression. Patient feels her eating habits reflect her childhood during which she had food insecurity and did not eat often. Recommended at least 3 meals/day even if they are light with prioritization of protein intake. Consider meeting with cheese packer. Recommending daily multivitamin. Plan to continue Zepbound 7.5 mg SC weekly and follow-up in 1 month. Will consider decreasing dose/transition to maintenance dosing at time of next visit. 07/12/2024: Weight: 146, BMI: 25.8. Patient down 10 pounds. Seca reviewed, reveals primarily loss of fat mass. Patient is encouraged to continue prioritizing protein intake -goal 80 g/day. She is additionally encouraged to continue walking regularly with added strength training 2-3 times weekly. Plan to continue 7.5 mg of Zepbound and follow-up in 1 month. 05/31/2024: Weight: 156, BMI: 27.6. Patient down 3 pounds. SECA reviewed, reveals 3 pounds of fat loss. Reviewed the importance of adequate nutrition in terms of calorie/protein intake to ensure healthy metabolism. The patient is encouraged to incorporate light meals more frequently. She is additionally encouraged to continue walking regularly discussed importance of strength training for continued maintenance of muscle mass. Patient will finish off current prescription for 5 mg, will send increased dose (Zepbound 7.5 mg) to begin upon completion. 05/01/2024: Weight: 159, BMI: 28.16. SECA reviewed, reveals primarily fat loss within the minimal muscle loss. Patient is encouraged to continue making health-conscious diet choices. Reviewed the importance of adequate nutrition in the setting of GLP-1 induced appetite suppression. Reminded of the importance as food is fuel. Reviewed protein goal -goal 80 g/day. Patient encouraged to continue to work to increase physical activity with added strength training twice-weekly. As patient has been on Zepbound 2.5 for 4+ weeks, interested in increasing dose. Rx for Zepbound 5 mg SC weekly sent to pharmacy. 03/15/24:Weight: 171.9, BMI: 30.5. Reviewed SECA/goals for implementing sustainable lifestyle changes. Patient is encouraged to increase physical activity, goal 8-10k steps/day. Also discussed the importance of strength training with proper safety/body mechanics for maintenance of muscle mass/bone health. Patient encouraged to drink 60-80oz water/day. Reviewed nutrition, recommending food diary x 1 week to ensure adequate caloric/protein intake. Goal of 80-100g protein/day. Reviewed risks, benefits, and side effects of weight management medications including phentermine, Topamax, Contrave, metformin, and GLP-1 agonist. Patient interested in GLP-1 agonist Zepbound. Denies personal/family history of medullary thyroid cancer/M EN syndrome. Rx for Zepbound 2.5 mg SC weekly sent to pharmacy. Reviewed expectations for PA process/insurance coverage. If he would like to initiate therapy with an office compounded to his appetite injection, 2.5 mg administered in office today. All questions answered to the patient's satisfaction. Patient demonstrates understanding of diagnosis and treatments discussed. Follow-up in 4 weeks, sooner should any questions/concerns arise. Case discussed with collaborating physician Brown Moreno who has reviewed the assessment/plan. Chart, medications, labs, and vital signs reviewed. Dictation completed with the use of [employer] voice recognition software, prone to medical misidentifications and grammatical errors. All errors are unintentional. Although the practitioner does try to identify and correct errors, some may be present. Please do not hesitate to contact the practitioner for clarification. Total time was 30 minutes spent with >50% on coordination of care and patient education. 09/20/2024 BMI 24.0-24.9, adult (ICD-10 - Z68.24) Yanely is a 44-year-old female with a PMH of gastric sleeve, HILTON requiring CPAP, elevated BP without dx of HTN, anxiety, depression that presents for weight management follow-up. Reviewed [facility] holistic and medical approach to weight loss with emphasis on lifestyle modification. 09/20/2024: Weight: 138.2, BMI: 24.5. Patient down 5 pounds. SECA reviewed, reveals 4 pounds of fat loss and 0.8 pounds of muscle mass loss. She is encouraged to continue making health-conscious diet choices and prioritizing protein intake. Discussed importance of nutrient rich/protein dense snacks/light meals. Patient encouraged to increase water intake, goal 40 to 60 ounces/day. She is encouraged to continue walking regularly with added use of free weights 2-3 times weekly. Patient will transition to Zepbound 7.5 mg SC every other week and follow-up in 4 to 6 weeks. 08/16/24: Weight: 143, BMI: 25.3. Patient down 3 pounds. SECA reviewed, reveals loss of maintenance of healthy muscle mass. Fat mass is very near normal range. Again reviewed the importance of adequate nutrition in the setting of GLP-1 induced appetite suppression. Patient feels her eating habits reflect her childhood during which she had food insecurity and did not eat often. Recommended at least 3 meals/day even if they are light with prioritization of protein intake. Consider meeting with cheese packer. Recommending daily multivitamin. Plan to continue Zepbound 7.5 mg SC weekly and follow-up in 1 month. Will consider decreasing dose/transition to maintenance dosing at time of next visit. 07/12/2024: Weight: 146, BMI: 25.8. Patient down 10 pounds. Seca reviewed, reveals primarily loss of fat mass. Patient is encouraged to continue prioritizing protein intake -goal 80 g/day. She is additionally encouraged to continue walking regularly with added strength training 2-3 times weekly. Plan to continue 7.5 mg of Zepbound and follow-up in 1 month. 05/31/2024: Weight: 156, BMI: 27.6. Patient down 3 pounds. SECA reviewed, reveals 3 pounds of fat loss. Reviewed the importance of adequate nutrition in terms of calorie/protein intake to ensure healthy metabolism. The patient is encouraged to incorporate light meals more frequently. She is additionally encouraged to continue walking regularly discussed importance of strength training for continued maintenance of muscle mass. Patient will finish off current prescription for 5 mg, will send increased dose (Zepbound 7.5 mg) to begin upon completion. 05/01/2024: Weight: 159, BMI: 28.16. SECA reviewed, reveals primarily fat loss within the minimal muscle loss. Patient is encouraged to continue making health-conscious diet choices. Reviewed the importance of adequate nutrition in the setting of GLP-1 induced appetite suppression. Reminded of the importance as food is fuel. Reviewed protein goal -goal 80 g/day. Patient encouraged to continue to work to increase physical activity with added strength training twice-weekly. As patient has been on Zepbound 2.5 for 4+ weeks, interested in increasing dose. Rx for Zepbound 5 mg SC weekly sent to pharmacy. 03/15/24:Weight: 171.9, BMI: 30.5. Reviewed SECA/goals for implementing sustainable lifestyle changes. Patient is encouraged to increase physical activity, goal 8-10k steps/day. Also discussed the importance of strength training with proper safety/body mechanics for maintenance of muscle mass/bone health. Patient encouraged to drink 60-80oz water/day. Reviewed nutrition, recommending food diary x 1 week to ensure adequate caloric/protein intake. Goal of 80-100g protein/day. Reviewed risks, benefits, and side effects of weight management medications including phentermine, Topamax, Contrave, metformin, and GLP-1 agonist. Patient interested in GLP-1 agonist Zepbound. Denies personal/family history of medullary thyroid cancer/M EN syndrome. Rx for Zepbound 2.5 mg SC weekly sent to pharmacy. Reviewed expectations for PA process/insurance coverage. If he would like to initiate therapy with an office compounded to his appetite injection, 2.5 mg administered in office today. All questions answered to the patient's satisfaction. Patient demonstrates understanding of diagnosis and treatments discussed. Follow-up in 4 weeks, sooner should any questions/concerns arise. Case discussed with collaborating physician Brown Moreno who has reviewed the assessment/plan. Chart, medications, labs, and vital signs reviewed. Dictation completed with the use of [employer] voice recognition software, prone to medical misidentifications and grammatical errors. All errors are unintentional. Although the practitioner does try to identify and correct errors, some may be present. Please do not hesitate to contact the practitioner for clarification. Total time was 30 minutes spent with >50% on coordination of care and patient education. 09/20/2024 History of obesity (ICD-10 - Z86.39) Yanely is a 44-year-old female with a PMH of gastric sleeve, HILTON requiring CPAP, elevated BP without dx of HTN, anxiety, depression that presents for weight management follow-up. Reviewed [facility] holistic and medical approach to weight loss with emphasis on lifestyle modification. 09/20/2024: Weight: 138.2, BMI: 24.5. Patient down 5 pounds. SECA reviewed, reveals 4 pounds of fat loss and 0.8 pounds of muscle mass loss. She is encouraged to continue making health-conscious diet choices and prioritizing protein intake. Discussed importance of nutrient rich/protein dense snacks/light meals. Patient encouraged to increase water intake, goal 40 to 60 ounces/day. She is encouraged to continue walking regularly with added use of free weights 2-3 times weekly. Patient will transition to Zepbound 7.5 mg SC every other week and follow-up in 4 to 6 weeks. 08/16/24: Weight: 143, BMI: 25.3. Patient down 3 pounds. SECA reviewed, reveals loss of maintenance of healthy muscle mass. Fat mass is very near normal range. Again reviewed the importance of adequate nutrition in the setting of GLP-1 induced appetite suppression. Patient feels her eating habits reflect her childhood during which she had food insecurity and did not eat often. Recommended at least 3 meals/day even if they are light with prioritization of protein intake. Consider meeting with cheese packer. Recommending daily multivitamin. Plan to continue Zepbound 7.5 mg SC weekly and follow-up in 1 month. Will consider decreasing dose/transition to maintenance dosing at time of next visit. 07/12/2024: Weight: 146, BMI: 25.8. Patient down 10 pounds. Seca reviewed, reveals primarily loss of fat mass. Patient is encouraged to continue prioritizing protein intake -goal 80 g/day. She is additionally encouraged to continue walking regularly with added strength training 2-3 times weekly. Plan to continue 7.5 mg of Zepbound and follow-up in 1 month. 05/31/2024: Weight: 156, BMI: 27.6. Patient down 3 pounds. SECA reviewed, reveals 3 pounds of fat loss. Reviewed the importance of adequate nutrition in terms of calorie/protein intake to ensure healthy metabolism. The patient is encouraged to incorporate light meals more frequently. She is additionally encouraged to continue walking regularly discussed importance of strength training for continued maintenance of muscle mass. Patient will finish off current prescription for 5 mg, will send increased dose (Zepbound 7.5 mg) to begin upon completion. 05/01/2024: Weight: 159, BMI: 28.16. SECA reviewed, reveals primarily fat loss within the minimal muscle loss. Patient is encouraged to continue making health-conscious diet choices. Reviewed the importance of adequate nutrition in the setting of GLP-1 induced appetite suppression. Reminded of the importance as food is fuel. Reviewed protein goal -goal 80 g/day. Patient encouraged to continue to work to increase physical activity with added strength training twice-weekly. As patient has been on Zepbound 2.5 for 4+ weeks, interested in increasing dose. Rx for Zepbound 5 mg SC weekly sent to pharmacy. 03/15/24:Weight: 171.9, BMI: 30.5. Reviewed SECA/goals for implementing sustainable lifestyle changes. Patient is encouraged to increase physical activity, goal 8-10k steps/day. Also discussed the importance of strength training with proper safety/body mechanics for maintenance of muscle mass/bone health. Patient encouraged to drink 60-80oz water/day. Reviewed nutrition, recommending food diary x 1 week to ensure adequate caloric/protein intake. Goal of 80-100g protein/day. Reviewed risks, benefits, and side effects of weight management medications including phentermine, Topamax, Contrave, metformin, and GLP-1 agonist. Patient interested in GLP-1 agonist Zepbound. Denies personal/family history of medullary thyroid cancer/M EN syndrome. Rx for Zepbound 2.5 mg SC weekly sent to pharmacy. Reviewed expectations for PA process/insurance coverage. If he would like to initiate therapy with an office compounded to his appetite injection, 2.5 mg administered in office today. All questions answered to the patient's satisfaction. Patient demonstrates understanding of diagnosis and treatments discussed. Follow-up in 4 weeks, sooner should any questions/concerns arise. Case discussed with collaborating physician Brown Moreno who has reviewed the assessment/plan. Chart, medications, labs, and vital signs reviewed. Dictation completed with the use of [employer] voice recognition software, prone to medical misidentifications and grammatical errors. All errors are unintentional. Although the practitioner does try to identify and correct errors, some may be present. Please do not hesitate to contact the practitioner for clarification. Total time was 30 minutes spent with >50% on coordination of care and patient education. 11/01/2024 BMI 23.0-23.9, adult (ICD-10 - Z68.23) Yanely is a 44-year-old female with a PMH of gastric sleeve, HILTON requiring CPAP, elevated BP without dx of HTN, anxiety, depression that presents for weight management follow-up. Reviewed [facility] holistic and medical approach to weight loss with emphasis on lifestyle modification. 11/01/2024: Weight: 132, BMI: 23.4. (-6lbs). SECA reviewed, reveals 5 pounds of fat loss and 0.3 pounds of muscle mass loss. Patient encouraged to continue making health-conscious diet choices and prioritizing protein intake. Discussed importance of regular eating habits and adequate hydration. She is encouraged to maintain physically active lifestyle. Will try to maintain weight loss on Zepbound 5 mg every 7 to 10 days and follow-up in 6 weeks. 09/20/2024: Weight: 138.2, BMI: 24.5. (-5lbs) 08/16/24: Weight: 143, BMI: 25.3. (-3lbs) 07/12/2024: Weight: 146, BMI: 25.8. (-10lbs) 05/31/2024: Weight: 156, BMI: 27.6. (-3lbs) 05/01/2024: Weight: 159, BMI: 28.16. (-12lbs) 03/15/24:Weight: 171.9, BMI: 30.5. All questions answered to the patient's satisfaction. Patient demonstrates understanding of diagnosis and treatments discussed. Follow-up in 4 weeks, sooner should any questions/concerns arise. Case discussed with collaborating physician Brown Moreno who has reviewed the assessment/plan. Chart, medications, labs, and vital signs reviewed. Dictation completed with the use of [employer] voice recognition software, prone to medical misidentifications and grammatical errors. All errors are unintentional. Although the practitioner does try to identify and correct errors, some may be present. Please do not hesitate to contact the practitioner for clarification. Total time was 30 minutes spent with >50% on coordination of care and patient education. 12/13/2024 BMI 22.0-22.9, adult (ICD-10 - Z68.22) Yanely is a 44-year-old female with a PMH of gastric sleeve, HILTON requiring CPAP, elevated BP without dx of HTN, anxiety, depression that presents for weight management follow-up. Reviewed [facility] holistic and medical approach to weight loss with emphasis on lifestyle modification. 12/13/2024: Weight: 125.8, BMI: 22.3 (-7lbs) ALLEY reviewed, reveals primarily fat loss. Discussed importance of prioritizing her own mental health and utilizing support systems. Plan to decrease dose of Zepbound to 2.5 mg every other week. Reviewed importance of adequate caloric intake, provided sample of Ensure complete nutrition drinks. Follow-up in 4 weeks. 11/01/2024: Weight: 132, BMI: 23.4. (-6lbs) 09/20/2024: Weight: 138.2, BMI: 24.5. (-5lbs) 08/16/24: Weight: 143, BMI: 25.3. (-3lbs) 07/12/2024: Weight: 146, BMI: 25.8. (-10lbs) 05/31/2024: Weight: 156, BMI: 27.6. (-3lbs) 05/01/2024: Weight: 159, BMI: 28.16. (-12lbs) 03/15/24:Weight: 171.9, BMI: 30.5. All questions answered to the patient's satisfaction. Patient demonstrates understanding of diagnosis and treatments discussed. Follow-up in 4 weeks, sooner should any questions/concerns arise. Case discussed with collaborating physician Brown Moreno who has reviewed the assessment/plan. Chart, medications, labs, and vital signs reviewed. Dictation completed with the use of [employer] voice recognition software, prone to medical misidentifications and grammatical errors. All errors are unintentional. Although the practitioner does try to identify and correct errors, some may be present. Please do not hesitate to contact the practitioner for clarification. Total time was 30 minutes spent with >50% on coordination of care and patient education. 12/13/2024 HILTON on CPAP (ICD-10 - G47.33) Yanely is a 44-year-old female with a PMH of gastric sleeve, HILTON requiring CPAP, elevated BP without dx of HTN, anxiety, depression that presents for weight management follow-up. Reviewed [facility] holistic and medical approach to weight loss with emphasis on lifestyle modification. 12/13/2024: Weight: 125.8, BMI: 22.3 (-7lbs) SECA reviewed, reveals primarily fat loss. Discussed importance of prioritizing her own mental health and utilizing support systems. Plan to decrease dose of Zepbound to 2.5 mg every other week. Reviewed importance of adequate caloric intake, provided sample of Ensure complete nutrition drinks. Follow-up in 4 weeks. 11/01/2024: Weight: 132, BMI: 23.4. (-6lbs) 09/20/2024: Weight: 138.2, BMI: 24.5. (-5lbs) 08/16/24: Weight: 143, BMI: 25.3. (-3lbs) 07/12/2024: Weight: 146, BMI: 25.8. (-10lbs) 05/31/2024: Weight: 156, BMI: 27.6. (-3lbs) 05/01/2024: Weight: 159, BMI: 28.16. (-12lbs) 03/15/24:Weight: 171.9, BMI: 30.5. All questions answered to the patient's satisfaction. Patient demonstrates understanding of diagnosis and treatments discussed. Follow-up in 4 weeks, sooner should any questions/concerns arise. Case discussed with collaborating physician Brown Moreno who has reviewed the assessment/plan. Chart, medications, labs, and vital signs reviewed. Dictation completed with the use of [employer] voice recognition software, prone to medical misidentifications and grammatical errors. All errors are unintentional. Although the practitioner does try to identify and correct errors, some may be present. Please do not hesitate to contact the practitioner for clarification. Total time was 30 minutes spent with >50% on coordination of care and patient education. 08/16/2024 BMI 25.0-25.9,adult (ICD-10 - Z68.25) Yanely is a 44-year-old female with a PMH of gastric sleeve, HILTON requiring CPAP, elevated BP without dx of HTN, anxiety, depression that presents for weight management follow-up. Reviewed [facility] holistic and medical approach to weight loss with emphasis on lifestyle modification. 08/16/24: Weight: 143, BMI: 25.3. Patient down 3 pounds. SECA reviewed, reveals loss of maintenance of healthy muscle mass. Fat mass is very near normal range. Again reviewed the importance of adequate nutrition in the setting of GLP-1 induced appetite suppression. Patient feels her eating habits reflect her childhood during which she had food insecurity and did not eat often. Recommended at least 3 meals/day even if they are light with prioritization of protein intake. Consider meeting with cheese packer. Recommending daily multivitamin. Plan to continue Zepbound 7.5 mg SC weekly and follow-up in 1 month. Will consider decreasing dose/transition to maintenance dosing at time of next visit. 07/12/2024: Weight: 146, BMI: 25.8. Patient down 10 pounds. Seca reviewed, reveals primarily loss of fat mass. Patient is encouraged to continue prioritizing protein intake -goal 80 g/day. She is additionally encouraged to continue walking regularly with added strength training 2-3 times weekly. Plan to continue 7.5 mg of Zepbound and follow-up in 1 month. 05/31/2024: Weight: 156, BMI: 27.6. Patient down 3 pounds. SECA reviewed, reveals 3 pounds of fat loss. Reviewed the importance of adequate nutrition in terms of calorie/protein intake to ensure healthy metabolism. The patient is encouraged to incorporate light meals more frequently. She is additionally encouraged to continue walking regularly discussed importance of strength training for continued maintenance of muscle mass. Patient will finish off current prescription for 5 mg, will send increased dose (Zepbound 7.5 mg) to begin upon completion. 05/01/2024: Weight: 159, BMI: 28.16. SECA reviewed, reveals primarily fat loss within the minimal muscle loss. Patient is encouraged to continue making health-conscious diet choices. Reviewed the importance of adequate nutrition in the setting of GLP-1 induced appetite suppression. Reminded of the importance as food is fuel. Reviewed protein goal -goal 80 g/day. Patient encouraged to continue to work to increase physical activity with added strength training twice-weekly. As patient has been on Zepbound 2.5 for 4+ weeks, interested in increasing dose. Rx for Zepbound 5 mg SC weekly sent to pharmacy. 03/15/24:Weight: 171.9, BMI: 30.5. Reviewed SECA/goals for implementing sustainable lifestyle changes. Patient is encouraged to increase physical activity, goal 8-10k steps/day. Also discussed the importance of strength training with proper safety/body mechanics for maintenance of muscle mass/bone health. Patient encouraged to drink 60-80oz water/day. Reviewed nutrition, recommending food diary x 1 week to ensure adequate caloric/protein intake. Goal of 80-100g protein/day. Reviewed risks, benefits, and side effects of weight management medications including phentermine, Topamax, Contrave, metformin, and GLP-1 agonist. Patient interested in GLP-1 agonist Zepbound. Denies personal/family history of medullary thyroid cancer/M EN syndrome. Rx for Zepbound 2.5 mg SC weekly sent to pharmacy. Reviewed expectations for PA process/insurance coverage. If he would like to initiate therapy with an office compounded to his appetite injection, 2.5 mg administered in office today. All questions answered to the patient's satisfaction. Patient demonstrates understanding of diagnosis and treatments discussed. Follow-up in 4 weeks, sooner should any questions/concerns arise. Case discussed with collaborating physician Brown Moreno who has reviewed the assessment/plan. Chart, medications, labs, and vital signs reviewed. Dictation completed with the use of [employer] voice recognition software, prone to medical misidentifications and grammatical errors. All errors are unintentional. Although the practitioner does try to identify and correct errors, some may be present. Please do not hesitate to contact the practitioner for clarification. Total time was 30 minutes spent with >50% on coordination of care and patient education. 11/01/2024 HILTON on CPAP (ICD-10 - G47.33) Yanely is a 44-year-old female with a PMH of gastric sleeve, HILTON requiring CPAP, elevated BP without dx of HTN, anxiety, depression that presents for weight management follow-up. Reviewed [facility] holistic and medical approach to weight loss with emphasis on lifestyle modification. 11/01/2024: Weight: 132, BMI: 23.4. (-6lbs). SECA reviewed, reveals 5 pounds of fat loss and 0.3 pounds of muscle mass loss. Patient encouraged to continue making health-conscious diet choices and prioritizing protein intake. Discussed importance of regular eating habits and adequate hydration. She is encouraged to maintain physically active lifestyle. Will try to maintain weight loss on Zepbound 5 mg every 7 to 10 days and follow-up in 6 weeks. 09/20/2024: Weight: 138.2, BMI: 24.5. (-5lbs) 08/16/24: Weight: 143, BMI: 25.3. (-3lbs) 07/12/2024: Weight: 146, BMI: 25.8. (-10lbs) 05/31/2024: Weight: 156, BMI: 27.6. (-3lbs) 05/01/2024: Weight: 159, BMI: 28.16. (-12lbs) 03/15/24:Weight: 171.9, BMI: 30.5. All questions answered to the patient's satisfaction. Patient demonstrates understanding of diagnosis and treatments discussed. Follow-up in 4 weeks, sooner should any questions/concerns arise. Case discussed with collaborating physician Brown Moreno who has reviewed the assessment/plan. Chart, medications, labs, and vital signs reviewed. Dictation completed with the use of [employer] voice recognition software, prone to medical misidentifications and grammatical errors. All errors are unintentional. Although the practitioner does try to identify and correct errors, some may be present. Please do not hesitate to contact the practitioner for clarification. Total time was 30 minutes spent with >50% on coordination of care and patient education. 11/01/2024 History of obesity (ICD-10 - Z86.39) Yanely is a 44-year-old female with a PMH of gastric sleeve, HILTON requiring CPAP, elevated BP without dx of HTN, anxiety, depression that presents for weight management follow-up. Reviewed [facility] holistic and medical approach to weight loss with emphasis on lifestyle modification. 11/01/2024: Weight: 132, BMI: 23.4. (-6lbs). SECA reviewed, reveals 5 pounds of fat loss and 0.3 pounds of muscle mass loss. Patient encouraged to continue making health-conscious diet choices and prioritizing protein intake. Discussed importance of regular eating habits and adequate hydration. She is encouraged to maintain physically active lifestyle. Will try to maintain weight loss on Zepbound 5 mg every 7 to 10 days and follow-up in 6 weeks. 09/20/2024: Weight: 138.2, BMI: 24.5. (-5lbs) 08/16/24: Weight: 143, BMI: 25.3. (-3lbs) 07/12/2024: Weight: 146, BMI: 25.8. (-10lbs) 05/31/2024: Weight: 156, BMI: 27.6. (-3lbs) 05/01/2024: Weight: 159, BMI: 28.16. (-12lbs) 03/15/24:Weight: 171.9, BMI: 30.5. All questions answered to the patient's satisfaction. Patient demonstrates understanding of diagnosis and treatments discussed. Follow-up in 4 weeks, sooner should any questions/concerns arise. Case discussed with collaborating physician Brown Moreno who has reviewed the assessment/plan. Chart, medications, labs, and vital signs reviewed. Dictation completed with the use of [employer] voice recognition software, prone to medical misidentifications and grammatical errors. All errors are unintentional. Although the practitioner does try to identify and correct errors, some may be present. Please do not hesitate to contact the practitioner for clarification. Total time was 30 minutes spent with >50% on coordination of care and patient education. 09/20/2024 HILTON on CPAP (ICD-10 - G47.33) Yanely is a 44-year-old female with a PMH of gastric sleeve, HILTON requiring CPAP, elevated BP without dx of HTN, anxiety, depression that presents for weight management follow-up. Reviewed [facility] holistic and medical approach to weight loss with emphasis on lifestyle modification. 09/20/2024: Weight: 138.2, BMI: 24.5. Patient down 5 pounds. SECA reviewed, reveals 4 pounds of fat loss and 0.8 pounds of muscle mass loss. She is encouraged to continue making health-conscious diet choices and prioritizing protein intake. Discussed importance of nutrient rich/protein dense snacks/light meals. Patient encouraged to increase water intake, goal 40 to 60 ounces/day. She is encouraged to continue walking regularly with added use of free weights 2-3 times weekly. Patient will transition to Zepbound 7.5 mg SC every other week and follow-up in 4 to 6 weeks. 08/16/24: Weight: 143, BMI: 25.3. Patient down 3 pounds. SECA reviewed, reveals loss of maintenance of healthy muscle mass. Fat mass is very near normal range. Again reviewed the importance of adequate nutrition in the setting of GLP-1 induced appetite suppression. Patient feels her eating habits reflect her childhood during which she had food insecurity and did not eat often. Recommended at least 3 meals/day even if they are light with prioritization of protein intake. Consider meeting with cheese packer. Recommending daily multivitamin. Plan to continue Zepbound 7.5 mg SC weekly and follow-up in 1 month. Will consider decreasing dose/transition to maintenance dosing at time of next visit. 07/12/2024: Weight: 146, BMI: 25.8. Patient down 10 pounds. Seca reviewed, reveals primarily loss of fat mass. Patient is encouraged to continue prioritizing protein intake -goal 80 g/day. She is additionally encouraged to continue walking regularly with added strength training 2-3 times weekly. Plan to continue 7.5 mg of Zepbound and follow-up in 1 month. 05/31/2024: Weight: 156, BMI: 27.6. Patient down 3 pounds. SECA reviewed, reveals 3 pounds of fat loss. Reviewed the importance of adequate nutrition in terms of calorie/protein intake to ensure healthy metabolism. The patient is encouraged to incorporate light meals more frequently. She is additionally encouraged to continue walking regularly discussed importance of strength training for continued maintenance of muscle mass. Patient will finish off current prescription for 5 mg, will send increased dose (Zepbound 7.5 mg) to begin upon completion. 05/01/2024: Weight: 159, BMI: 28.16. SECA reviewed, reveals primarily fat loss within the minimal muscle loss. Patient is encouraged to continue making health-conscious diet choices. Reviewed the importance of adequate nutrition in the setting of GLP-1 induced appetite suppression. Reminded of the importance as food is fuel. Reviewed protein goal -goal 80 g/day. Patient encouraged to continue to work to increase physical activity with added strength training twice-weekly. As patient has been on Zepbound 2.5 for 4+ weeks, interested in increasing dose. Rx for Zepbound 5 mg SC weekly sent to pharmacy. 03/15/24:Weight: 171.9, BMI: 30.5. Reviewed SECA/goals for implementing sustainable lifestyle changes. Patient is encouraged to increase physical activity, goal 8-10k steps/day. Also discussed the importance of strength training with proper safety/body mechanics for maintenance of muscle mass/bone health. Patient encouraged to drink 60-80oz water/day. Reviewed nutrition, recommending food diary x 1 week to ensure adequate caloric/protein intake. Goal of 80-100g protein/day. Reviewed risks, benefits, and side effects of weight management medications including phentermine, Topamax, Contrave, metformin, and GLP-1 agonist. Patient interested in GLP-1 agonist Zepbound. Denies personal/family history of medullary thyroid cancer/M EN syndrome. Rx for Zepbound 2.5 mg SC weekly sent to pharmacy. Reviewed expectations for [place] process/insurance coverage. If he would like to initiate therapy with an office compounded to his appetite injection, 2.5 mg administered in office today. All questions answered to the patient's satisfaction. Patient demonstrates understanding of diagnosis and treatments discussed. Follow-up in 4 weeks, sooner should any questions/concerns arise. Case discussed with collaborating physician Brown Moreno who has reviewed the assessment/plan. Chart, medications, labs, and vital signs reviewed. Dictation completed with the use of [employer] voice recognition software, prone to medical misidentifications and grammatical errors. All errors are unintentional. Although the practitioner does try to identify and correct errors, some may be present. Please do not hesitate to contact the practitioner for clarification. Total time was 30 minutes spent with >50% on coordination of care and patient education. 07/12/2024 HILTON on CPAP (ICD-10 - G47.33) Yanely is a 44-year-old female with a PMH of gastric sleeve, HILTON requiring CPAP, elevated BP without dx of HTN, anxiety, depression that presents for weight management follow-up. Reviewed [facility] holistic and medical approach to weight loss with emphasis on lifestyle modification. 07/12/2024: Weight: 146, BMI: 25.8. Patient down 10 pounds. Seca reviewed, reveals primarily loss of fat mass. Patient is encouraged to continue prioritizing protein intake -goal 80 g/day. She is additionally encouraged to continue walking regularly with added strength training 2-3 times weekly. Plan to continue 7.5 mg of Zepbound and follow-up in 1 month. 05/31/2024: Weight: 156, BMI: 27.6. Patient down 3 pounds. SECA reviewed, reveals 3 pounds of fat loss. Reviewed the importance of adequate nutrition in terms of calorie/protein intake to ensure healthy metabolism. The patient is encouraged to incorporate light meals more frequently. She is additionally encouraged to continue walking regularly discussed importance of strength training for continued maintenance of muscle mass. Patient will finish off current prescription for 5 mg, will send increased dose (Zepbound 7.5 mg) to begin upon completion. 05/01/2024: Weight: 159, BMI: 28.16. SECA reviewed, reveals primarily fat loss within the minimal muscle loss. Patient is encouraged to continue making health-conscious diet choices. Reviewed the importance of adequate nutrition in the setting of GLP-1 induced appetite suppression. Reminded of the importance as food is fuel. Reviewed protein goal -goal 80 g/day. Patient encouraged to continue to work to increase physical activity with added strength training twice-weekly. As patient has been on Zepbound 2.5 for 4+ weeks, interested in increasing dose. Rx for Zepbound 5 mg SC weekly sent to pharmacy. 03/15/24:Weight: 171.9, BMI: 30.5. Reviewed SECA/goals for implementing sustainable lifestyle changes. Patient is encouraged to increase physical activity, goal 8-10k steps/day. Also discussed the importance of strength training with proper safety/body mechanics for maintenance of muscle mass/bone health. Patient encouraged to drink 60-80oz water/day. Reviewed nutrition, recommending food diary x 1 week to ensure adequate caloric/protein intake. Goal of 80-100g protein/day. Reviewed risks, benefits, and side effects of weight management medications including phentermine, Topamax, Contrave, metformin, and GLP-1 agonist. Patient interested in GLP-1 agonist Zepbound. Denies personal/family history of medullary thyroid cancer/M EN syndrome. Rx for Zepbound 2.5 mg SC weekly sent to pharmacy. Reviewed expectations for [place] process/insurance coverage. If he would like to initiate therapy with an office compounded to his appetite injection, 2.5 mg administered in office today. All questions answered to the patient's satisfaction. Patient demonstrates understanding of diagnosis and treatments discussed. Follow-up in 4 weeks, sooner should any questions/concerns arise. Case discussed with collaborating physician Brown Moreno who has reviewed the assessment/plan. Chart, medications, labs, and vital signs reviewed. Dictation completed with the use of [employer] voice recognition software, prone to medical misidentifications and grammatical errors. All errors are unintentional. Although the practitioner does try to identify and correct errors, some may be present. Please do not hesitate to contact the practitioner for clarification. Total time was 30 minutes spent with >50% on coordination of care and patient education. 05/31/2024 HILTON on CPAP (ICD-10 - G47.33) Yanely is a 44-year-old female with a PMH of gastric sleeve, HILTON requiring CPAP, elevated BP without dx of HTN, anxiety, depression that presents for weight management follow-up. Reviewed [facility] holistic and medical approach to weight loss with emphasis on lifestyle modification. 05/31/2024: Weight: 156, BMI: 27.6. Patient down 3 pounds. SECA reviewed, reveals 3 pounds of fat loss. Reviewed the importance of adequate nutrition in terms of calorie/protein intake to ensure healthy metabolism. The patient is encouraged to incorporate light meals more frequently. She is additionally encouraged to continue walking regularly discussed importance of strength training for continued maintenance of muscle mass. Patient will finish off current prescription for 5 mg, will send increased dose (Zepbound 7.5 mg) to begin upon completion. 05/01/2024: Weight: 159, BMI: 28.16. SECA reviewed, reveals primarily fat loss within the minimal muscle loss. Patient is encouraged to continue making health-conscious diet choices. Reviewed the importance of adequate nutrition in the setting of GLP-1 induced appetite suppression. Reminded of the importance as food is fuel. Reviewed protein goal -goal 80 g/day. Patient encouraged to continue to work to increase physical activity with added strength training twice-weekly. As patient has been on Zepbound 2.5 for 4+ weeks, interested in increasing dose. Rx for Zepbound 5 mg SC weekly sent to pharmacy. 03/15/24:Weight: 171.9, BMI: 30.5. Reviewed SECA/goals for implementing sustainable lifestyle changes. Patient is encouraged to increase physical activity, goal 8-10k steps/day. Also discussed the importance of strength training with proper safety/body mechanics for maintenance of muscle mass/bone health. Patient encouraged to drink 60-80oz water/day. Reviewed nutrition, recommending food diary x 1 week to ensure adequate caloric/protein intake. Goal of 80-100g protein/day. Reviewed risks, benefits, and side effects of weight management medications including phentermine, Topamax, Contrave, metformin, and GLP-1 agonist. Patient interested in GLP-1 agonist Zepbound. Denies personal/family history of medullary thyroid cancer/M EN syndrome. Rx for Zepbound 2.5 mg SC weekly sent to pharmacy. Reviewed expectations for [place] process/insurance coverage. If he would like to initiate therapy with an office compounded to his appetite injection, 2.5 mg administered in office today. All questions answered to the patient's satisfaction. Patient demonstrates understanding of diagnosis and treatments discussed. Follow-up in 4 weeks, sooner should any questions/concerns arise. Case discussed with collaborating physician Brown Moreno who has reviewed the assessment/plan. Chart, medications, labs, and vital signs reviewed. Dictation completed with the use of [employer] voice recognition software, prone to medical misidentifications and grammatical errors. All errors are unintentional. Although the practitioner does try to identify and correct errors, some may be present. Please do not hesitate to contact the practitioner for clarification. Total time was 30 minutes spent with >50% on coordination of care and patient education. 05/01/2024 HILTON on CPAP (ICD-10 - G47.33) Yanely is a 44-year-old female with a PMH of gastric sleeve, HILTON requiring CPAP, elevated BP without dx of HTN, anxiety, depression that presents for weight management follow-up. Reviewed [facility] holistic and medical approach to weight loss with emphasis on lifestyle modification. 05/01/2024: Weight: 159, BMI: 28.16. SECA reviewed, reveals primarily fat loss within the minimal muscle loss. Patient is encouraged to continue making health-conscious diet choices. Reviewed the importance of adequate nutrition in the setting of GLP-1 induced appetite suppression. Reminded of the importance as food is fuel. Reviewed protein goal -goal 80 g/day. Patient encouraged to continue to work to increase physical activity with added strength training twice-weekly. As patient has been on Zepbound 2.5 for 4+ weeks, interested in increasing dose. Rx for Zepbound 5 mg SC weekly sent to pharmacy. 03/15/24:Weight: 171.9, BMI: 30.5. Reviewed SECA/goals for implementing sustainable lifestyle changes. Patient is encouraged to increase physical activity, goal 8-10k steps/day. Also discussed the importance of strength training with proper safety/body mechanics for maintenance of muscle mass/bone health. Patient encouraged to drink 60-80oz water/day. Reviewed nutrition, recommending food diary x 1 week to ensure adequate caloric/protein intake. Goal of 80-100g protein/day. Reviewed risks, benefits, and side effects of weight management medications including phentermine, Topamax, Contrave, metformin, and GLP-1 agonist. Patient interested in GLP-1 agonist Zepbound. Denies personal/family history of medullary thyroid cancer/M EN syndrome. Rx for Zepbound 2.5 mg SC weekly sent to pharmacy. Reviewed expectations for [place] process/insurance coverage. If he would like to initiate therapy with an office compounded to his appetite injection, 2.5 mg administered in office today. All questions answered to the patient's satisfaction. Patient demonstrates understanding of diagnosis and treatments discussed. Follow-up in 4 weeks, sooner should any questions/concerns arise. Case discussed with collaborating physician Brown Moreno who has reviewed the assessment/plan. Chart, medications, labs, and vital signs reviewed. Dictation completed with the use of [employer] voice recognition software, prone to medical misidentifications and grammatical errors. All errors are unintentional. Although the practitioner does try to identify and correct errors, some may be present. Please do not hesitate to contact the practitioner for clarification. Total time was 30 minutes spent with >50% on coordination of care and patient education. 03/15/2024 HILTON on CPAP (ICD-10 - G47.33) Yanely is a 44-year-old female with a PMH of gastric sleeve, HILTON requiring CPAP, elevated BP without dx of HTN, anxiety, depression that presents for weight management consult. Patient was reassured and welcomed to the practice. Discussed [facility] holistic and medical approach to weight loss with emphasis on lifestyle modification. Patient is educated that a healthy lifestyle aids in combating obesity as well as reducing the risk of developing obesity-related medical complications including but not limited to diabetes and cardiovascular disease. Detailed education provided about taking steps to initiate sustainable lifestyle changes including incorporating regular physical activity, making healthy diet choices, and prioritizing mental health. Information provided about literature including The Food Rules by Andry Huston and Eat Fat Get Lean by Dr Thom Melvin. Handouts including lifestyle checklist, protein content of food, low calorie snacks, and cholesterol information sheet provided. Diagnostic testing/ SECA scale offered. Discussed the importance of regular SECA scale measurements to ensure healthy weight loss. 03/15/24:Weight: 171.9, BMI: 30.5. Reviewed SECA/goals for implementing sustainable lifestyle changes. Patient is encouraged to increase physical activity, goal 8-10k steps/day. Also discussed the importance of strength training with proper safety/body mechanics for maintenance of muscle mass/bone health. Patient encouraged to drink 60-80oz water/day. Reviewed nutrition, recommending food diary x 1 week to ensure adequate caloric/protein intake. Goal of 80-100g protein/day. Reviewed risks, benefits, and side effects of weight management medications including phentermine, Topamax, Contrave, metformin, and GLP-1 agonist. Patient interested in GLP-1 agonist Zepbound. Denies personal/family history of medullary thyroid cancer/M EN syndrome. Rx for Zepbound 2.5 mg SC weekly sent to pharmacy. Reviewed expectations for PA process/insurance coverage. If he would like to initiate therapy with an office compounded to his appetite injection, 2.5 mg administered in office today. After consultation and careful review of medical history, this patient would benefit from Zepbound based off of the following criteria met: Patient is over the age of 18 with a BMI of 30.5. Additional comorbidities include HILTON requiring CPAP. Patient has trialed other methods of weight loss including gastric sleeve, phentermine, Wegovy and improving diet and exercise. This medication is prescribed by or in consultation with a board-certified obesity and weight management physician (Dr. Sulema Moreno or Dr. Aldo Moreno). All questions answered to the patient's satisfaction. Patient demonstrates understanding of diagnosis and treatments discussed. Follow-up in 4 weeks, sooner should any questions/concerns arise. Case discussed with collaborating physician Brown Moreno who has reviewed the assessment/plan. Chart, medications, labs, and vital signs reviewed. Dictation completed with the use of [employer] voice recognition software, prone to medical misidentifications and grammatical errors. All errors are unintentional. Although the practitioner does try to identify and correct errors, some may be present. Please do not hesitate to contact the practitioner for clarification. Total time was 60 minutes spent with >50% on coordination of care and patient education. 03/15/2024 Elevated BP without diagnosis of hypertension (ICD-10 - R03.0) Yanely is a 44-year-old female with a PMH of gastric sleeve, HILTON requiring CPAP, elevated BP without dx of HTN, anxiety, depression that presents for weight management consult. Patient was reassured and welcomed to the practice. Discussed [facility] holistic and medical approach to weight loss with emphasis on lifestyle modification. Patient is educated that a healthy lifestyle aids in combating obesity as well as reducing the risk of developing obesity-related medical complications including but not limited to diabetes and cardiovascular disease. Detailed education provided about taking steps to initiate sustainable lifestyle changes including incorporating regular physical activity, making healthy diet choices, and prioritizing mental health. Information provided about literature including The Food Rules by Andry Huston and Eat Fat Get Lean by Dr Thom Melvin. Handouts including lifestyle checklist, protein content of food, low calorie snacks, and cholesterol information sheet provided. Diagnostic testing/ SECA scale offered. Discussed the importance of regular SECA scale measurements to ensure healthy weight loss. 03/15/24:Weight: 171.9, BMI: 30.5. Reviewed SECA/goals for implementing sustainable lifestyle changes. Patient is encouraged to increase physical activity, goal 8-10k steps/day. Also discussed the importance of strength training with proper safety/body mechanics for maintenance of muscle mass/bone health. Patient encouraged to drink 60-80oz water/day. Reviewed nutrition, recommending food diary x 1 week to ensure adequate caloric/protein intake. Goal of 80-100g protein/day. Reviewed risks, benefits, and side effects of weight management medications including phentermine, Topamax, Contrave, metformin, and GLP-1 agonist. Patient interested in GLP-1 agonist Zepbound. Denies personal/family history of medullary thyroid cancer/M EN syndrome. Rx for Zepbound 2.5 mg SC weekly sent to pharmacy. Reviewed expectations for PA process/insurance coverage. If he would like to initiate therapy with an office compounded to his appetite injection, 2.5 mg administered in office today. After consultation and careful review of medical history, this patient would benefit from Zepbound based off of the following criteria met: Patient is over the age of 18 with a BMI of 30.5. Additional comorbidities include HILTON requiring CPAP. Patient has trialed other methods of weight loss including gastric sleeve, phentermine, Wegovy and improving diet and exercise. This medication is prescribed by or in consultation with a board-certified obesity and weight management physician (Dr. Sulema Moreno or Dr. Aldo Moreno). All questions answered to the patient's satisfaction. Patient demonstrates understanding of diagnosis and treatments discussed. Follow-up in 4 weeks, sooner should any questions/concerns arise. Case discussed with collaborating physician Brown Moreno who has reviewed the assessment/plan. Chart, medications, labs, and vital signs reviewed. Dictation completed with the use of [employer] voice recognition software, prone to medical misidentifications and grammatical errors. All errors are unintentional. Although the practitioner does try to identify and correct errors, some may be present. Please do not hesitate to contact the practitioner for clarification. Total time was 60 minutes spent with >50% on coordination of care and patient education. 05/01/2024 Elevated BP without diagnosis of hypertension (ICD-10 - R03.0) Yanely is a 44-year-old female with a PMH of gastric sleeve, HILTON requiring CPAP, elevated BP without dx of HTN, anxiety, depression that presents for weight management follow-up. Reviewed [facility] holistic and medical approach to weight loss with emphasis on lifestyle modification. 05/01/2024: Weight: 159, BMI: 28.16. SECA reviewed, reveals primarily fat loss within the minimal muscle loss. Patient is encouraged to continue making health-conscious diet choices. Reviewed the importance of adequate nutrition in the setting of GLP-1 induced appetite suppression. Reminded of the importance as food is fuel. Reviewed protein goal -goal 80 g/day. Patient encouraged to continue to work to increase physical activity with added strength training twice-weekly. As patient has been on Zepbound 2.5 for 4+ weeks, interested in increasing dose. Rx for Zepbound 5 mg SC weekly sent to pharmacy. 03/15/24:Weight: 171.9, BMI: 30.5. Reviewed SECA/goals for implementing sustainable lifestyle changes. Patient is encouraged to increase physical activity, goal 8-10k steps/day. Also discussed the importance of strength training with proper safety/body mechanics for maintenance of muscle mass/bone health. Patient encouraged to drink 60-80oz water/day. Reviewed nutrition, recommending food diary x 1 week to ensure adequate caloric/protein intake. Goal of 80-100g protein/day. Reviewed risks, benefits, and side effects of weight management medications including phentermine, Topamax, Contrave, metformin, and GLP-1 agonist. Patient interested in GLP-1 agonist Zepbound. Denies personal/family history of medullary thyroid cancer/M EN syndrome. Rx for Zepbound 2.5 mg SC weekly sent to pharmacy. Reviewed expectations for PA process/insurance coverage. If he would like to initiate therapy with an office compounded to his appetite injection, 2.5 mg administered in office today. All questions answered to the patient's satisfaction. Patient demonstrates understanding of diagnosis and treatments discussed. Follow-up in 4 weeks, sooner should any questions/concerns arise. Case discussed with collaborating physician Brown Moreno who has reviewed the assessment/plan. Chart, medications, labs, and vital signs reviewed. Dictation completed with the use of [employer] voice recognition software, prone to medical misidentifications and grammatical errors. All errors are unintentional. Although the practitioner does try to identify and correct errors, some may be present. Please do not hesitate to contact the practitioner for clarification. Total time was 30 minutes spent with >50% on coordination of care and patient education. 05/31/2024 H/O gastric sleeve (ICD-10 - Z90.3) Yanely is a 44-year-old female with a PMH of gastric sleeve, HILTON requiring CPAP, elevated BP without dx of HTN, anxiety, depression that presents for weight management follow-up. Reviewed [facility] holistic and medical approach to weight loss with emphasis on lifestyle modification. 05/31/2024: Weight: 156, BMI: 27.6. Patient down 3 pounds. SECA reviewed, reveals 3 pounds of fat loss. Reviewed the importance of adequate nutrition in terms of calorie/protein intake to ensure healthy metabolism. The patient is encouraged to incorporate light meals more frequently. She is additionally encouraged to continue walking regularly discussed importance of strength training for continued maintenance of muscle mass. Patient will finish off current prescription for 5 mg, will send increased dose (Zepbound 7.5 mg) to begin upon completion. 05/01/2024: Weight: 159, BMI: 28.16. SECA reviewed, reveals primarily fat loss within the minimal muscle loss. Patient is encouraged to continue making health-conscious diet choices. Reviewed the importance of adequate nutrition in the setting of GLP-1 induced appetite suppression. Reminded of the importance as food is fuel. Reviewed protein goal -goal 80 g/day. Patient encouraged to continue to work to increase physical activity with added strength training twice-weekly. As patient has been on Zepbound 2.5 for 4+ weeks, interested in increasing dose. Rx for Zepbound 5 mg SC weekly sent to pharmacy. 03/15/24:Weight: 171.9, BMI: 30.5. Reviewed SECA/goals for implementing sustainable lifestyle changes. Patient is encouraged to increase physical activity, goal 8-10k steps/day. Also discussed the importance of strength training with proper safety/body mechanics for maintenance of muscle mass/bone health. Patient encouraged to drink 60-80oz water/day. Reviewed nutrition, recommending food diary x 1 week to ensure adequate caloric/protein intake. Goal of 80-100g protein/day. Reviewed risks, benefits, and side effects of weight management medications including phentermine, Topamax, Contrave, metformin, and GLP-1 agonist. Patient interested in GLP-1 agonist Zepbound. Denies personal/family history of medullary thyroid cancer/M EN syndrome. Rx for Zepbound 2.5 mg SC weekly sent to pharmacy. Reviewed expectations for PA process/insurance coverage. If he would like to initiate therapy with an office compounded to his appetite injection, 2.5 mg administered in office today. All questions answered to the patient's satisfaction. Patient demonstrates understanding of diagnosis and treatments discussed. Follow-up in 4 weeks, sooner should any questions/concerns arise. Case discussed with collaborating physician Brown Moreno who has reviewed the assessment/plan. Chart, medications, labs, and vital signs reviewed. Dictation completed with the use of [employer] voice recognition software, prone to medical misidentifications and grammatical errors. All errors are unintentional. Although the practitioner does try to identify and correct errors, some may be present. Please do not hesitate to contact the practitioner for clarification. Total time was 30 minutes spent with >50% on coordination of care and patient education. 07/12/2024 H/O gastric sleeve (ICD-10 - Z90.3) Yanely is a 44-year-old female with a PMH of gastric sleeve, HILTON requiring CPAP, elevated BP without dx of HTN, anxiety, depression that presents for weight management follow-up. Reviewed [facility] holistic and medical approach to weight loss with emphasis on lifestyle modification. 07/12/2024: Weight: 146, BMI: 25.8. Patient down 10 pounds. Seca reviewed, reveals primarily loss of fat mass. Patient is encouraged to continue prioritizing protein intake -goal 80 g/day. She is additionally encouraged to continue walking regularly with added strength training 2-3 times weekly. Plan to continue 7.5 mg of Zepbound and follow-up in 1 month. 05/31/2024: Weight: 156, BMI: 27.6. Patient down 3 pounds. SECA reviewed, reveals 3 pounds of fat loss. Reviewed the importance of adequate nutrition in terms of calorie/protein intake to ensure healthy metabolism. The patient is encouraged to incorporate light meals more frequently. She is additionally encouraged to continue walking regularly discussed importance of strength training for continued maintenance of muscle mass. Patient will finish off current prescription for 5 mg, will send increased dose (Zepbound 7.5 mg) to begin upon completion. 05/01/2024: Weight: 159, BMI: 28.16. SECA reviewed, reveals primarily fat loss within the minimal muscle loss. Patient is encouraged to continue making health-conscious diet choices. Reviewed the importance of adequate nutrition in the setting of GLP-1 induced appetite suppression. Reminded of the importance as food is fuel. Reviewed protein goal -goal 80 g/day. Patient encouraged to continue to work to increase physical activity with added strength training twice-weekly. As patient has been on Zepbound 2.5 for 4+ weeks, interested in increasing dose. Rx for Zepbound 5 mg SC weekly sent to pharmacy. 03/15/24:Weight: 171.9, BMI: 30.5. Reviewed SECA/goals for implementing sustainable lifestyle changes. Patient is encouraged to increase physical activity, goal 8-10k steps/day. Also discussed the importance of strength training with proper safety/body mechanics for maintenance of muscle mass/bone health. Patient encouraged to drink 60-80oz water/day. Reviewed nutrition, recommending food diary x 1 week to ensure adequate caloric/protein intake. Goal of 80-100g protein/day. Reviewed risks, benefits, and side effects of weight management medications including phentermine, Topamax, Contrave, metformin, and GLP-1 agonist. Patient interested in GLP-1 agonist Zepbound. Denies personal/family history of medullary thyroid cancer/M EN syndrome. Rx for Zepbound 2.5 mg SC weekly sent to pharmacy. Reviewed expectations for PA process/insurance coverage. If he would like to initiate therapy with an office compounded to his appetite injection, 2.5 mg administered in office today. All questions answered to the patient's satisfaction. Patient demonstrates understanding of diagnosis and treatments discussed. Follow-up in 4 weeks, sooner should any questions/concerns arise. Case discussed with collaborating physician Brown Moreno who has reviewed the assessment/plan. Chart, medications, labs, and vital signs reviewed. Dictation completed with the use of [employer] voice recognition software, prone to medical misidentifications and grammatical errors. All errors are unintentional. Although the practitioner does try to identify and correct errors, some may be present. Please do not hesitate to contact the practitioner for clarification. Total time was 30 minutes spent with >50% on coordination of care and patient education. 09/20/2024 H/O gastric sleeve (ICD-10 - Z90.3) Yanely is a 44-year-old female with a PMH of gastric sleeve, HILTON requiring CPAP, elevated BP without dx of HTN, anxiety, depression that presents for weight management follow-up. Reviewed [facility] holistic and medical approach to weight loss with emphasis on lifestyle modification. 09/20/2024: Weight: 138.2, BMI: 24.5. Patient down 5 pounds. SECA reviewed, reveals 4 pounds of fat loss and 0.8 pounds of muscle mass loss. She is encouraged to continue making health-conscious diet choices and prioritizing protein intake. Discussed importance of nutrient rich/protein dense snacks/light meals. Patient encouraged to increase water intake, goal 40 to 60 ounces/day. She is encouraged to continue walking regularly with added use of free weights 2-3 times weekly. Patient will transition to Zepbound 7.5 mg SC every other week and follow-up in 4 to 6 weeks. 08/16/24: Weight: 143, BMI: 25.3. Patient down 3 pounds. SECA reviewed, reveals loss of maintenance of healthy muscle mass. Fat mass is very near normal range. Again reviewed the importance of adequate nutrition in the setting of GLP-1 induced appetite suppression. Patient feels her eating habits reflect her childhood during which she had food insecurity and did not eat often. Recommended at least 3 meals/day even if they are light with prioritization of protein intake. Consider meeting with cheese packer. Recommending daily multivitamin. Plan to continue Zepbound 7.5 mg SC weekly and follow-up in 1 month. Will consider decreasing dose/transition to maintenance dosing at time of next visit. 07/12/2024: Weight: 146, BMI: 25.8. Patient down 10 pounds. Seca reviewed, reveals primarily loss of fat mass. Patient is encouraged to continue prioritizing protein intake -goal 80 g/day. She is additionally encouraged to continue walking regularly with added strength training 2-3 times weekly. Plan to continue 7.5 mg of Zepbound and follow-up in 1 month. 05/31/2024: Weight: 156, BMI: 27.6. Patient down 3 pounds. SECA reviewed, reveals 3 pounds of fat loss. Reviewed the importance of adequate nutrition in terms of calorie/protein intake to ensure healthy metabolism. The patient is encouraged to incorporate light meals more frequently. She is additionally encouraged to continue walking regularly discussed importance of strength training for continued maintenance of muscle mass. Patient will finish off current prescription for 5 mg, will send increased dose (Zepbound 7.5 mg) to begin upon completion. 05/01/2024: Weight: 159, BMI: 28.16. SECA reviewed, reveals primarily fat loss within the minimal muscle loss. Patient is encouraged to continue making health-conscious diet choices. Reviewed the importance of adequate nutrition in the setting of GLP-1 induced appetite suppression. Reminded of the importance as food is fuel. Reviewed protein goal -goal 80 g/day. Patient encouraged to continue to work to increase physical activity with added strength training twice-weekly. As patient has been on Zepbound 2.5 for 4+ weeks, interested in increasing dose. Rx for Zepbound 5 mg SC weekly sent to pharmacy. 03/15/24:Weight: 171.9, BMI: 30.5. Reviewed SECA/goals for implementing sustainable lifestyle changes. Patient is encouraged to increase physical activity, goal 8-10k steps/day. Also discussed the importance of strength training with proper safety/body mechanics for maintenance of muscle mass/bone health. Patient encouraged to drink 60-80oz water/day. Reviewed nutrition, recommending food diary x 1 week to ensure adequate caloric/protein intake. Goal of 80-100g protein/day. Reviewed risks, benefits, and side effects of weight management medications including phentermine, Topamax, Contrave, metformin, and GLP-1 agonist. Patient interested in GLP-1 agonist Zepbound. Denies personal/family history of medullary thyroid cancer/M EN syndrome. Rx for Zepbound 2.5 mg SC weekly sent to pharmacy. Reviewed expectations for PA process/insurance coverage. If he would like to initiate therapy with an office compounded to his appetite injection, 2.5 mg administered in office today. All questions answered to the patient's satisfaction. Patient demonstrates understanding of diagnosis and treatments discussed. Follow-up in 4 weeks, sooner should any questions/concerns arise. Case discussed with collaborating physician Brown Moreno who has reviewed the assessment/plan. Chart, medications, labs, and vital signs reviewed. Dictation completed with the use of [employer] voice recognition software, prone to medical misidentifications and grammatical errors. All errors are unintentional. Although the practitioner does try to identify and correct errors, some may be present. Please do not hesitate to contact the practitioner for clarification. Total time was 30 minutes spent with >50% on coordination of care and patient education. 08/16/2024 HILTON on CPAP (ICD-10 - G47.33) Yanely is a 44-year-old female with a PMH of gastric sleeve, HILTON requiring CPAP, elevated BP without dx of HTN, anxiety, depression that presents for weight management follow-up. Reviewed [facility] holistic and medical approach to weight loss with emphasis on lifestyle modification. 08/16/24: Weight: 143, BMI: 25.3. Patient down 3 pounds. SECA reviewed, reveals loss of maintenance of healthy muscle mass. Fat mass is very near normal range. Again reviewed the importance of adequate nutrition in the setting of GLP-1 induced appetite suppression. Patient feels her eating habits reflect her childhood during which she had food insecurity and did not eat often. Recommended at least 3 meals/day even if they are light with prioritization of protein intake. Consider meeting with cheese packer. Recommending daily multivitamin. Plan to continue Zepbound 7.5 mg SC weekly and follow-up in 1 month. Will consider decreasing dose/transition to maintenance dosing at time of next visit. 07/12/2024: Weight: 146, BMI: 25.8. Patient down 10 pounds. Seca reviewed, reveals primarily loss of fat mass. Patient is encouraged to continue prioritizing protein intake -goal 80 g/day. She is additionally encouraged to continue walking regularly with added strength training 2-3 times weekly. Plan to continue 7.5 mg of Zepbound and follow-up in 1 month. 05/31/2024: Weight: 156, BMI: 27.6. Patient down 3 pounds. SECA reviewed, reveals 3 pounds of fat loss. Reviewed the importance of adequate nutrition in terms of calorie/protein intake to ensure healthy metabolism. The patient is encouraged to incorporate light meals more frequently. She is additionally encouraged to continue walking regularly discussed importance of strength training for continued maintenance of muscle mass. Patient will finish off current prescription for 5 mg, will send increased dose (Zepbound 7.5 mg) to begin upon completion. 05/01/2024: Weight: 159, BMI: 28.16. SECA reviewed, reveals primarily fat loss within the minimal muscle loss. Patient is encouraged to continue making health-conscious diet choices. Reviewed the importance of adequate nutrition in the setting of GLP-1 induced appetite suppression. Reminded of the importance as food is fuel. Reviewed protein goal -goal 80 g/day. Patient encouraged to continue to work to increase physical activity with added strength training twice-weekly. As patient has been on Zepbound 2.5 for 4+ weeks, interested in increasing dose. Rx for Zepbound 5 mg SC weekly sent to pharmacy. 03/15/24:Weight: 171.9, BMI: 30.5. Reviewed SECA/goals for implementing sustainable lifestyle changes. Patient is encouraged to increase physical activity, goal 8-10k steps/day. Also discussed the importance of strength training with proper safety/body mechanics for maintenance of muscle mass/bone health. Patient encouraged to drink 60-80oz water/day. Reviewed nutrition, recommending food diary x 1 week to ensure adequate caloric/protein intake. Goal of 80-100g protein/day. Reviewed risks, benefits, and side effects of weight management medications including phentermine, Topamax, Contrave, metformin, and GLP-1 agonist. Patient interested in GLP-1 agonist Zepbound. Denies personal/family history of medullary thyroid cancer/M EN syndrome. Rx for Zepbound 2.5 mg SC weekly sent to pharmacy. Reviewed expectations for PA process/insurance coverage. If he would like to initiate therapy with an office compounded to his appetite injection, 2.5 mg administered in office today. All questions answered to the patient's satisfaction. Patient demonstrates understanding of diagnosis and treatments discussed. Follow-up in 4 weeks, sooner should any questions/concerns arise. Case discussed with collaborating physician Brown Moreno who has reviewed the assessment/plan. Chart, medications, labs, and vital signs reviewed. Dictation completed with the use of [employer] voice recognition software, prone to medical misidentifications and grammatical errors. All errors are unintentional. Although the practitioner does try to identify and correct errors, some may be present. Please do not hesitate to contact the practitioner for clarification. Total time was 30 minutes spent with >50% on coordination of care and patient education. 11/01/2024 H/O gastric sleeve (ICD-10 - Z90.3) Yanely is a 44-year-old female with a PMH of gastric sleeve, HILTON requiring CPAP, elevated BP without dx of HTN, anxiety, depression that presents for weight management follow-up. Reviewed [facility] holistic and medical approach to weight loss with emphasis on lifestyle modification. 11/01/2024: Weight: 132, BMI: 23.4. (-6lbs). SECA reviewed, reveals 5 pounds of fat loss and 0.3 pounds of muscle mass loss. Patient encouraged to continue making health-conscious diet choices and prioritizing protein intake. Discussed importance of regular eating habits and adequate hydration. She is encouraged to maintain physically active lifestyle. Will try to maintain weight loss on Zepbound 5 mg every 7 to 10 days and follow-up in 6 weeks. 09/20/2024: Weight: 138.2, BMI: 24.5. (-5lbs) 08/16/24: Weight: 143, BMI: 25.3. (-3lbs) 07/12/2024: Weight: 146, BMI: 25.8. (-10lbs) 05/31/2024: Weight: 156, BMI: 27.6. (-3lbs) 05/01/2024: Weight: 159, BMI: 28.16. (-12lbs) 03/15/24:Weight: 171.9, BMI: 30.5. All questions answered to the patient's satisfaction. Patient demonstrates understanding of diagnosis and treatments discussed. Follow-up in 4 weeks, sooner should any questions/concerns arise. Case discussed with collaborating physician Brown Moreno who has reviewed the assessment/plan. Chart, medications, labs, and vital signs reviewed. Dictation completed with the use of [employer] voice recognition software, prone to medical misidentifications and grammatical errors. All errors are unintentional. Although the practitioner does try to identify and correct errors, some may be present. Please do not hesitate to contact the practitioner for clarification. Total time was 30 minutes spent with >50% on coordination of care and patient education. 12/13/2024 H/O gastric sleeve (ICD-10 - Z90.3) Yanely is a 44-year-old female with a PMH of gastric sleeve, HILTON requiring CPAP, elevated BP without dx of HTN, anxiety, depression that presents for weight management follow-up. Reviewed [facility] holistic and medical approach to weight loss with emphasis on lifestyle modification. 12/13/2024: Weight: 125.8, BMI: 22.3 (-7lbs) SECA reviewed, reveals primarily fat loss. Discussed importance of prioritizing her own mental health and utilizing support systems. Plan to decrease dose of Zepbound to 2.5 mg every other week. Reviewed importance of adequate caloric intake, provided sample of Ensure complete nutrition drinks. Follow-up in 4 weeks. 11/01/2024: Weight: 132, BMI: 23.4. (-6lbs) 09/20/2024: Weight: 138.2, BMI: 24.5. (-5lbs) 08/16/24: Weight: 143, BMI: 25.3. (-3lbs) 07/12/2024: Weight: 146, BMI: 25.8. (-10lbs) 05/31/2024: Weight: 156, BMI: 27.6. (-3lbs) 05/01/2024: Weight: 159, BMI: 28.16. (-12lbs) 03/15/24:Weight: 171.9, BMI: 30.5. All questions answered to the patient's satisfaction. Patient demonstrates understanding of diagnosis and treatments discussed. Follow-up in 4 weeks, sooner should any questions/concerns arise. Case discussed with collaborating physician Brown Moreno who has reviewed the assessment/plan. Chart, medications, labs, and vital signs reviewed. Dictation completed with the use of [employer] voice recognition software, prone to medical misidentifications and grammatical errors. All errors are unintentional. Although the practitioner does try to identify and correct errors, some may be present. Please do not hesitate to contact the practitioner for clarification. Total time was 30 minutes spent with >50% on coordination of care and patient education. 12/13/2024 History of obesity (ICD-10 - Z86.39) Yanely is a 44-year-old female with a PMH of gastric sleeve, HILTON requiring CPAP, elevated BP without dx of HTN, anxiety, depression that presents for weight management follow-up. Reviewed [facility] holistic and medical approach to weight loss with emphasis on lifestyle modification. 12/13/2024: Weight: 125.8, BMI: 22.3 (-7lbs) ALLEY reviewed, reveals primarily fat loss. Discussed importance of prioritizing her own mental health and utilizing support systems. Plan to decrease dose of Zepbound to 2.5 mg every other week. Reviewed importance of adequate caloric intake, provided sample of Ensure complete nutrition drinks. Follow-up in 4 weeks. 11/01/2024: Weight: 132, BMI: 23.4. (-6lbs) 09/20/2024: Weight: 138.2, BMI: 24.5. (-5lbs) 08/16/24: Weight: 143, BMI: 25.3. (-3lbs) 07/12/2024: Weight: 146, BMI: 25.8. (-10lbs) 05/31/2024: Weight: 156, BMI: 27.6. (-3lbs) 05/01/2024: Weight: 159, BMI: 28.16. (-12lbs) 03/15/24:Weight: 171.9, BMI: 30.5. All questions answered to the patient's satisfaction. Patient demonstrates understanding of diagnosis and treatments discussed. Follow-up in 4 weeks, sooner should any questions/concerns arise. Case discussed with collaborating physician Brown Moreno who has reviewed the assessment/plan. Chart, medications, labs, and vital signs reviewed. Dictation completed with the use of [employer] voice recognition software, prone to medical misidentifications and grammatical errors. All errors are unintentional. Although the practitioner does try to identify and correct errors, some may be present. Please do not hesitate to contact the practitioner for clarification. Total time was 30 minutes spent with >50% on coordination of care and patient education. 12/13/2024 Nutritional counseling (ICD-10 - Z71.3) Yanely is a 44-year-old female with a PMH of gastric sleeve, HILTON requiring CPAP, elevated BP without dx of HTN, anxiety, depression that presents for weight management follow-up. Reviewed [facility] holistic and medical approach to weight loss with emphasis on lifestyle modification. 12/13/2024: Weight: 125.8, BMI: 22.3 (-7lbs) ALLEY reviewed, reveals primarily fat loss. Discussed importance of prioritizing her own mental health and utilizing support systems. Plan to decrease dose of Zepbound to 2.5 mg every other week. Reviewed importance of adequate caloric intake, provided sample of Ensure complete nutrition drinks. Follow-up in 4 weeks. 11/01/2024: Weight: 132, BMI: 23.4. (-6lbs) 09/20/2024: Weight: 138.2, BMI: 24.5. (-5lbs) 08/16/24: Weight: 143, BMI: 25.3. (-3lbs) 07/12/2024: Weight: 146, BMI: 25.8. (-10lbs) 05/31/2024: Weight: 156, BMI: 27.6. (-3lbs) 05/01/2024: Weight: 159, BMI: 28.16. (-12lbs) 03/15/24:Weight: 171.9, BMI: 30.5. All questions answered to the patient's satisfaction. Patient demonstrates understanding of diagnosis and treatments discussed. Follow-up in 4 weeks, sooner should any questions/concerns arise. Case discussed with collaborating physician Brown Moreno who has reviewed the assessment/plan. Chart, medications, labs, and vital signs reviewed. Dictation completed with the use of [employer] voice recognition software, prone to medical misidentifications and grammatical errors. All errors are unintentional. Although the practitioner does try to identify and correct errors, some may be present. Please do not hesitate to contact the practitioner for clarification. Total time was 30 minutes spent with >50% on coordination of care and patient education. 11/01/2024 Nutritional counseling (ICD-10 - Z71.3) Yanely is a 44-year-old female with a PMH of gastric sleeve, HILTON requiring CPAP, elevated BP without dx of HTN, anxiety, depression that presents for weight management follow-up. Reviewed [facility] holistic and medical approach to weight loss with emphasis on lifestyle modification. 11/01/2024: Weight: 132, BMI: 23.4. (-6lbs). SECA reviewed, reveals 5 pounds of fat loss and 0.3 pounds of muscle mass loss. Patient encouraged to continue making health-conscious diet choices and prioritizing protein intake. Discussed importance of regular eating habits and adequate hydration. She is encouraged to maintain physically active lifestyle. Will try to maintain weight loss on Zepbound 5 mg every 7 to 10 days and follow-up in 6 weeks. 09/20/2024: Weight: 138.2, BMI: 24.5. (-5lbs) 08/16/24: Weight: 143, BMI: 25.3. (-3lbs) 07/12/2024: Weight: 146, BMI: 25.8. (-10lbs) 05/31/2024: Weight: 156, BMI: 27.6. (-3lbs) 05/01/2024: Weight: 159, BMI: 28.16. (-12lbs) 03/15/24:Weight: 171.9, BMI: 30.5. All questions answered to the patient's satisfaction. Patient demonstrates understanding of diagnosis and treatments discussed. Follow-up in 4 weeks, sooner should any questions/concerns arise. Case discussed with collaborating physician Brown Moreno who has reviewed the assessment/plan. Chart, medications, labs, and vital signs reviewed. Dictation completed with the use of [employer] voice recognition software, prone to medical misidentifications and grammatical errors. All errors are unintentional. Although the practitioner does try to identify and correct errors, some may be present. Please do not hesitate to contact the practitioner for clarification. Total time was 30 minutes spent with >50% on coordination of care and patient education. 08/16/2024 H/O gastric sleeve (ICD-10 - Z90.3) Yanely is a 44-year-old female with a PMH of gastric sleeve, HILTON requiring CPAP, elevated BP without dx of HTN, anxiety, depression that presents for weight management follow-up. Reviewed [facility] holistic and medical approach to weight loss with emphasis on lifestyle modification. 08/16/24: Weight: 143, BMI: 25.3. Patient down 3 pounds. SECA reviewed, reveals loss of maintenance of healthy muscle mass. Fat mass is very near normal range. Again reviewed the importance of adequate nutrition in the setting of GLP-1 induced appetite suppression. Patient feels her eating habits reflect her childhood during which she had food insecurity and did not eat often. Recommended at least 3 meals/day even if they are light with prioritization of protein intake. Consider meeting with cheese packer. Recommending daily multivitamin. Plan to continue Zepbound 7.5 mg SC weekly and follow-up in 1 month. Will consider decreasing dose/transition to maintenance dosing at time of next visit. 07/12/2024: Weight: 146, BMI: 25.8. Patient down 10 pounds. Seca reviewed, reveals primarily loss of fat mass. Patient is encouraged to continue prioritizing protein intake -goal 80 g/day. She is additionally encouraged to continue walking regularly with added strength training 2-3 times weekly. Plan to continue 7.5 mg of Zepbound and follow-up in 1 month. 05/31/2024: Weight: 156, BMI: 27.6. Patient down 3 pounds. SECA reviewed, reveals 3 pounds of fat loss. Reviewed the importance of adequate nutrition in terms of calorie/protein intake to ensure healthy metabolism. The patient is encouraged to incorporate light meals more frequently. She is additionally encouraged to continue walking regularly discussed importance of strength training for continued maintenance of muscle mass. Patient will finish off current prescription for 5 mg, will send increased dose (Zepbound 7.5 mg) to begin upon completion. 05/01/2024: Weight: 159, BMI: 28.16. SECA reviewed, reveals primarily fat loss within the minimal muscle loss. Patient is encouraged to continue making health-conscious diet choices. Reviewed the importance of adequate nutrition in the setting of GLP-1 induced appetite suppression. Reminded of the importance as food is fuel. Reviewed protein goal -goal 80 g/day. Patient encouraged to continue to work to increase physical activity with added strength training twice-weekly. As patient has been on Zepbound 2.5 for 4+ weeks, interested in increasing dose. Rx for Zepbound 5 mg SC weekly sent to pharmacy. 03/15/24:Weight: 171.9, BMI: 30.5. Reviewed SECA/goals for implementing sustainable lifestyle changes. Patient is encouraged to increase physical activity, goal 8-10k steps/day. Also discussed the importance of strength training with proper safety/body mechanics for maintenance of muscle mass/bone health. Patient encouraged to drink 60-80oz water/day. Reviewed nutrition, recommending food diary x 1 week to ensure adequate caloric/protein intake. Goal of 80-100g protein/day. Reviewed risks, benefits, and side effects of weight management medications including phentermine, Topamax, Contrave, metformin, and GLP-1 agonist. Patient interested in GLP-1 agonist Zepbound. Denies personal/family history of medullary thyroid cancer/M EN syndrome. Rx for Zepbound 2.5 mg SC weekly sent to pharmacy. Reviewed expectations for PA process/insurance coverage. If he would like to initiate therapy with an office compounded to his appetite injection, 2.5 mg administered in office today. All questions answered to the patient's satisfaction. Patient demonstrates understanding of diagnosis and treatments discussed. Follow-up in 4 weeks, sooner should any questions/concerns arise. Case discussed with collaborating physician Brown Moreno who has reviewed the assessment/plan. Chart, medications, labs, and vital signs reviewed. Dictation completed with the use of [employer] voice recognition software, prone to medical misidentifications and grammatical errors. All errors are unintentional. Although the practitioner does try to identify and correct errors, some may be present. Please do not hesitate to contact the practitioner for clarification. Total time was 30 minutes spent with >50% on coordination of care and patient education. 09/20/2024 Nutritional counseling (ICD-10 - Z71.3) Yanely is a 44-year-old female with a PMH of gastric sleeve, HILTON requiring CPAP, elevated BP without dx of HTN, anxiety, depression that presents for weight management follow-up. Reviewed [facility] holistic and medical approach to weight loss with emphasis on lifestyle modification. 09/20/2024: Weight: 138.2, BMI: 24.5. Patient down 5 pounds. SECA reviewed, reveals 4 pounds of fat loss and 0.8 pounds of muscle mass loss. She is encouraged to continue making health-conscious diet choices and prioritizing protein intake. Discussed importance of nutrient rich/protein dense snacks/light meals. Patient encouraged to increase water intake, goal 40 to 60 ounces/day. She is encouraged to continue walking regularly with added use of free weights 2-3 times weekly. Patient will transition to Zepbound 7.5 mg SC every other week and follow-up in 4 to 6 weeks. 08/16/24: Weight: 143, BMI: 25.3. Patient down 3 pounds. SECA reviewed, reveals loss of maintenance of healthy muscle mass. Fat mass is very near normal range. Again reviewed the importance of adequate nutrition in the setting of GLP-1 induced appetite suppression. Patient feels her eating habits reflect her childhood during which she had food insecurity and did not eat often. Recommended at least 3 meals/day even if they are light with prioritization of protein intake. Consider meeting with cheese packer. Recommending daily multivitamin. Plan to continue Zepbound 7.5 mg SC weekly and follow-up in 1 month. Will consider decreasing dose/transition to maintenance dosing at time of next visit. 07/12/2024: Weight: 146, BMI: 25.8. Patient down 10 pounds. Seca reviewed, reveals primarily loss of fat mass. Patient is encouraged to continue prioritizing protein intake -goal 80 g/day. She is additionally encouraged to continue walking regularly with added strength training 2-3 times weekly. Plan to continue 7.5 mg of Zepbound and follow-up in 1 month. 05/31/2024: Weight: 156, BMI: 27.6. Patient down 3 pounds. SECA reviewed, reveals 3 pounds of fat loss. Reviewed the importance of adequate nutrition in terms of calorie/protein intake to ensure healthy metabolism. The patient is encouraged to incorporate light meals more frequently. She is additionally encouraged to continue walking regularly discussed importance of strength training for continued maintenance of muscle mass. Patient will finish off current prescription for 5 mg, will send increased dose (Zepbound 7.5 mg) to begin upon completion. 05/01/2024: Weight: 159, BMI: 28.16. SECA reviewed, reveals primarily fat loss within the minimal muscle loss. Patient is encouraged to continue making health-conscious diet choices. Reviewed the importance of adequate nutrition in the setting of GLP-1 induced appetite suppression. Reminded of the importance as food is fuel. Reviewed protein goal -goal 80 g/day. Patient encouraged to continue to work to increase physical activity with added strength training twice-weekly. As patient has been on Zepbound 2.5 for 4+ weeks, interested in increasing dose. Rx for Zepbound 5 mg SC weekly sent to pharmacy. 03/15/24:Weight: 171.9, BMI: 30.5. Reviewed SECA/goals for implementing sustainable lifestyle changes. Patient is encouraged to increase physical activity, goal 8-10k steps/day. Also discussed the importance of strength training with proper safety/body mechanics for maintenance of muscle mass/bone health. Patient encouraged to drink 60-80oz water/day. Reviewed nutrition, recommending food diary x 1 week to ensure adequate caloric/protein intake. Goal of 80-100g protein/day. Reviewed risks, benefits, and side effects of weight management medications including phentermine, Topamax, Contrave, metformin, and GLP-1 agonist. Patient interested in GLP-1 agonist Zepbound. Denies personal/family history of medullary thyroid cancer/M EN syndrome. Rx for Zepbound 2.5 mg SC weekly sent to pharmacy. Reviewed expectations for [place] process/insurance coverage. If he would like to initiate therapy with an office compounded to his appetite injection, 2.5 mg administered in office today. All questions answered to the patient's satisfaction. Patient demonstrates understanding of diagnosis and treatments discussed. Follow-up in 4 weeks, sooner should any questions/concerns arise. Case discussed with collaborating physician Brown Moreno who has reviewed the assessment/plan. Chart, medications, labs, and vital signs reviewed. Dictation completed with the use of [employer] voice recognition software, prone to medical misidentifications and grammatical errors. All errors are unintentional. Although the practitioner does try to identify and correct errors, some may be present. Please do not hesitate to contact the practitioner for clarification. Total time was 30 minutes spent with >50% on coordination of care and patient education. 07/12/2024 Nutritional counseling (ICD-10 - Z71.3) Yanely is a 44-year-old female with a PMH of gastric sleeve, HILTON requiring CPAP, elevated BP without dx of HTN, anxiety, depression that presents for weight management follow-up. Reviewed [facility] holistic and medical approach to weight loss with emphasis on lifestyle modification. 07/12/2024: Weight: 146, BMI: 25.8. Patient down 10 pounds. Seca reviewed, reveals primarily loss of fat mass. Patient is encouraged to continue prioritizing protein intake -goal 80 g/day. She is additionally encouraged to continue walking regularly with added strength training 2-3 times weekly. Plan to continue 7.5 mg of Zepbound and follow-up in 1 month. 05/31/2024: Weight: 156, BMI: 27.6. Patient down 3 pounds. SECA reviewed, reveals 3 pounds of fat loss. Reviewed the importance of adequate nutrition in terms of calorie/protein intake to ensure healthy metabolism. The patient is encouraged to incorporate light meals more frequently. She is additionally encouraged to continue walking regularly discussed importance of strength training for continued maintenance of muscle mass. Patient will finish off current prescription for 5 mg, will send increased dose (Zepbound 7.5 mg) to begin upon completion. 05/01/2024: Weight: 159, BMI: 28.16. SECA reviewed, reveals primarily fat loss within the minimal muscle loss. Patient is encouraged to continue making health-conscious diet choices. Reviewed the importance of adequate nutrition in the setting of GLP-1 induced appetite suppression. Reminded of the importance as food is fuel. Reviewed protein goal -goal 80 g/day. Patient encouraged to continue to work to increase physical activity with added strength training twice-weekly. As patient has been on Zepbound 2.5 for 4+ weeks, interested in increasing dose. Rx for Zepbound 5 mg SC weekly sent to pharmacy. 03/15/24:Weight: 171.9, BMI: 30.5. Reviewed SECA/goals for implementing sustainable lifestyle changes. Patient is encouraged to increase physical activity, goal 8-10k steps/day. Also discussed the importance of strength training with proper safety/body mechanics for maintenance of muscle mass/bone health. Patient encouraged to drink 60-80oz water/day. Reviewed nutrition, recommending food diary x 1 week to ensure adequate caloric/protein intake. Goal of 80-100g protein/day. Reviewed risks, benefits, and side effects of weight management medications including phentermine, Topamax, Contrave, metformin, and GLP-1 agonist. Patient interested in GLP-1 agonist Zepbound. Denies personal/family history of medullary thyroid cancer/M EN syndrome. Rx for Zepbound 2.5 mg SC weekly sent to pharmacy. Reviewed expectations for [place] process/insurance coverage. If he would like to initiate therapy with an office compounded to his appetite injection, 2.5 mg administered in office today. All questions answered to the patient's satisfaction. Patient demonstrates understanding of diagnosis and treatments discussed. Follow-up in 4 weeks, sooner should any questions/concerns arise. Case discussed with collaborating physician Brown Moreno who has reviewed the assessment/plan. Chart, medications, labs, and vital signs reviewed. Dictation completed with the use of [employer] voice recognition software, prone to medical misidentifications and grammatical errors. All errors are unintentional. Although the practitioner does try to identify and correct errors, some may be present. Please do not hesitate to contact the practitioner for clarification. Total time was 30 minutes spent with >50% on coordination of care and patient education. 05/31/2024 Nutritional counseling (ICD-10 - Z71.3) Yanely is a 44-year-old female with a PMH of gastric sleeve, HILTON requiring CPAP, elevated BP without dx of HTN, anxiety, depression that presents for weight management follow-up. Reviewed [facility] holistic and medical approach to weight loss with emphasis on lifestyle modification. 05/31/2024: Weight: 156, BMI: 27.6. Patient down 3 pounds. SECA reviewed, reveals 3 pounds of fat loss. Reviewed the importance of adequate nutrition in terms of calorie/protein intake to ensure healthy metabolism. The patient is encouraged to incorporate light meals more frequently. She is additionally encouraged to continue walking regularly discussed importance of strength training for continued maintenance of muscle mass. Patient will finish off current prescription for 5 mg, will send increased dose (Zepbound 7.5 mg) to begin upon completion. 05/01/2024: Weight: 159, BMI: 28.16. SECA reviewed, reveals primarily fat loss within the minimal muscle loss. Patient is encouraged to continue making health-conscious diet choices. Reviewed the importance of adequate nutrition in the setting of GLP-1 induced appetite suppression. Reminded of the importance as food is fuel. Reviewed protein goal -goal 80 g/day. Patient encouraged to continue to work to increase physical activity with added strength training twice-weekly. As patient has been on Zepbound 2.5 for 4+ weeks, interested in increasing dose. Rx for Zepbound 5 mg SC weekly sent to pharmacy. 03/15/24:Weight: 171.9, BMI: 30.5. Reviewed SECA/goals for implementing sustainable lifestyle changes. Patient is encouraged to increase physical activity, goal 8-10k steps/day. Also discussed the importance of strength training with proper safety/body mechanics for maintenance of muscle mass/bone health. Patient encouraged to drink 60-80oz water/day. Reviewed nutrition, recommending food diary x 1 week to ensure adequate caloric/protein intake. Goal of 80-100g protein/day. Reviewed risks, benefits, and side effects of weight management medications including phentermine, Topamax, Contrave, metformin, and GLP-1 agonist. Patient interested in GLP-1 agonist Zepbound. Denies personal/family history of medullary thyroid cancer/M EN syndrome. Rx for Zepbound 2.5 mg SC weekly sent to pharmacy. Reviewed expectations for PA process/insurance coverage. If he would like to initiate therapy with an office compounded to his appetite injection, 2.5 mg administered in office today. All questions answered to the patient's satisfaction. Patient demonstrates understanding of diagnosis and treatments discussed. Follow-up in 4 weeks, sooner should any questions/concerns arise. Case discussed with collaborating physician Brown Moreno who has reviewed the assessment/plan. Chart, medications, labs, and vital signs reviewed. Dictation completed with the use of [employer] voice recognition software, prone to medical misidentifications and grammatical errors. All errors are unintentional. Although the practitioner does try to identify and correct errors, some may be present. Please do not hesitate to contact the practitioner for clarification. Total time was 30 minutes spent with >50% on coordination of care and patient education. 03/15/2024 Anxiety disorder, unspecified (ICD-10 - F41.9) Yanely is a 44-year-old female with a PMH of gastric sleeve, HILTON requiring CPAP, elevated BP without dx of HTN, anxiety, depression that presents for weight management consult. Patient was reassured and welcomed to the practice. Discussed [facility] holistic and medical approach to weight loss with emphasis on lifestyle modification. Patient is educated that a healthy lifestyle aids in combating obesity as well as reducing the risk of developing obesity-related medical complications including but not limited to diabetes and cardiovascular disease. Detailed education provided about taking steps to initiate sustainable lifestyle changes including incorporating regular physical activity, making healthy diet choices, and prioritizing mental health. Information provided about literature including The Food Rules by Andry Huston and Eat Fat Get Lean by Dr Thom Melvin. Handouts including lifestyle checklist, protein content of food, low calorie snacks, and cholesterol information sheet provided. Diagnostic testing/ SECA scale offered. Discussed the importance of regular SECA scale measurements to ensure healthy weight loss. 03/15/24:Weight: 171.9, BMI: 30.5. Reviewed SECA/goals for implementing sustainable lifestyle changes. Patient is encouraged to increase physical activity, goal 8-10k steps/day. Also discussed the importance of strength training with proper safety/body mechanics for maintenance of muscle mass/bone health. Patient encouraged to drink 60-80oz water/day. Reviewed nutrition, recommending food diary x 1 week to ensure adequate caloric/protein intake. Goal of 80-100g protein/day. Reviewed risks, benefits, and side effects of weight management medications including phentermine, Topamax, Contrave, metformin, and GLP-1 agonist. Patient interested in GLP-1 agonist Zepbound. Denies personal/family history of medullary thyroid cancer/M EN syndrome. Rx for Zepbound 2.5 mg SC weekly sent to pharmacy. Reviewed expectations for PA process/insurance coverage. If he would like to initiate therapy with an office compounded to his appetite injection, 2.5 mg administered in office today. After consultation and careful review of medical history, this patient would benefit from Zepbound based off of the following criteria met: Patient is over the age of 18 with a BMI of 30.5. Additional comorbidities include HILTON requiring CPAP. Patient has trialed other methods of weight loss including gastric sleeve, phentermine, Wegovy and improving diet and exercise. This medication is prescribed by or in consultation with a board-certified obesity and weight management physician (Dr. Sulema Moreno or Dr. Aldo Moreno). All questions answered to the patient's satisfaction. Patient demonstrates understanding of diagnosis and treatments discussed. Follow-up in 4 weeks, sooner should any questions/concerns arise. Case discussed with collaborating physician Brown Moreno who has reviewed the assessment/plan. Chart, medications, labs, and vital signs reviewed. Dictation completed with the use of [employer] voice recognition software, prone to medical misidentifications and grammatical errors. All errors are unintentional. Although the practitioner does try to identify and correct errors, some may be present. Please do not hesitate to contact the practitioner for clarification. Total time was 60 minutes spent with >50% on coordination of care and patient education. 05/01/2024 Anxiety disorder, unspecified (ICD-10 - F41.9) Yanely is a 44-year-old female with a PMH of gastric sleeve, HILTON requiring CPAP, elevated BP without dx of HTN, anxiety, depression that presents for weight management follow-up. Reviewed [facility] holistic and medical approach to weight loss with emphasis on lifestyle modification. 05/01/2024: Weight: 159, BMI: 28.16. SECA reviewed, reveals primarily fat loss within the minimal muscle loss. Patient is encouraged to continue making health-conscious diet choices. Reviewed the importance of adequate nutrition in the setting of GLP-1 induced appetite suppression. Reminded of the importance as food is fuel. Reviewed protein goal -goal 80 g/day. Patient encouraged to continue to work to increase physical activity with added strength training twice-weekly. As patient has been on Zepbound 2.5 for 4+ weeks, interested in increasing dose. Rx for Zepbound 5 mg SC weekly sent to pharmacy. 03/15/24:Weight: 171.9, BMI: 30.5. Reviewed SECA/goals for implementing sustainable lifestyle changes. Patient is encouraged to increase physical activity, goal 8-10k steps/day. Also discussed the importance of strength training with proper safety/body mechanics for maintenance of muscle mass/bone health. Patient encouraged to drink 60-80oz water/day. Reviewed nutrition, recommending food diary x 1 week to ensure adequate caloric/protein intake. Goal of 80-100g protein/day. Reviewed risks, benefits, and side effects of weight management medications including phentermine, Topamax, Contrave, metformin, and GLP-1 agonist. Patient interested in GLP-1 agonist Zepbound. Denies personal/family history of medullary thyroid cancer/M EN syndrome. Rx for Zepbound 2.5 mg SC weekly sent to pharmacy. Reviewed expectations for PA process/insurance coverage. If he would like to initiate therapy with an office compounded to his appetite injection, 2.5 mg administered in office today. All questions answered to the patient's satisfaction. Patient demonstrates understanding of diagnosis and treatments discussed. Follow-up in 4 weeks, sooner should any questions/concerns arise. Case discussed with collaborating physician Brown Moreno who has reviewed the assessment/plan. Chart, medications, labs, and vital signs reviewed. Dictation completed with the use of [employer] voice recognition software, prone to medical misidentifications and grammatical errors. All errors are unintentional. Although the practitioner does try to identify and correct errors, some may be present. Please do not hesitate to contact the practitioner for clarification. Total time was 30 minutes spent with >50% on coordination of care and patient education. 03/15/2024 Depression, unspecified (ICD-10 - F32.A) Yanely is a 44-year-old female with a PMH of gastric sleeve, HILTON requiring CPAP, elevated BP without dx of HTN, anxiety, depression that presents for weight management consult. Patient was reassured and welcomed to the practice. Discussed [facility] holistic and medical approach to weight loss with emphasis on lifestyle modification. Patient is educated that a healthy lifestyle aids in combating obesity as well as reducing the risk of developing obesity-related medical complications including but not limited to diabetes and cardiovascular disease. Detailed education provided about taking steps to initiate sustainable lifestyle changes including incorporating regular physical activity, making healthy diet choices, and prioritizing mental health. Information provided about literature including The Food Rules by Andry Huston and Eat Fat Get Lean by Dr Thom Melvin. Handouts including lifestyle checklist, protein content of food, low calorie snacks, and cholesterol information sheet provided. Diagnostic testing/ SECA scale offered. Discussed the importance of regular SECA scale measurements to ensure healthy weight loss. 03/15/24:Weight: 171.9, BMI: 30.5. Reviewed SECA/goals for implementing sustainable lifestyle changes. Patient is encouraged to increase physical activity, goal 8-10k steps/day. Also discussed the importance of strength training with proper safety/body mechanics for maintenance of muscle mass/bone health. Patient encouraged to drink 60-80oz water/day. Reviewed nutrition, recommending food diary x 1 week to ensure adequate caloric/protein intake. Goal of 80-100g protein/day. Reviewed risks, benefits, and side effects of weight management medications including phentermine, Topamax, Contrave, metformin, and GLP-1 agonist. Patient interested in GLP-1 agonist Zepbound. Denies personal/family history of medullary thyroid cancer/M EN syndrome. Rx for Zepbound 2.5 mg SC weekly sent to pharmacy. Reviewed expectations for PA process/insurance coverage. If he would like to initiate therapy with an office compounded to his appetite injection, 2.5 mg administered in office today. After consultation and careful review of medical history, this patient would benefit from Zepbound based off of the following criteria met: Patient is over the age of 16 with a BMI of 30.5. Additional comorbidities include HILTON requiring CPAP. Patient has trialed other methods of weight loss including gastric sleeve, phentermine, Wegovy and improving diet and exercise. This medication is prescribed by or in consultation with a board-certified obesity and weight management physician (Dr. Sulema Moreno or Dr. Aldo Moreno). All questions answered to the patient's satisfaction. Patient demonstrates understanding of diagnosis and treatments discussed. Follow-up in 4 weeks, sooner should any questions/concerns arise. Case discussed with collaborating physician Brown Moreno who has reviewed the assessment/plan. Chart, medications, labs, and vital signs reviewed. Dictation completed with the use of [employer] voice recognition software, prone to medical misidentifications and grammatical errors. All errors are unintentional. Although the practitioner does try to identify and correct errors, some may be present. Please do not hesitate to contact the practitioner for clarification. Total time was 60 minutes spent with >50% on coordination of care and patient education. 05/01/2024 Depression, unspecified (ICD-10 - F32.A) Yanely is a 44-year-old female with a PMH of gastric sleeve, HILTON requiring CPAP, elevated BP without dx of HTN, anxiety, depression that presents for weight management follow-up. Reviewed [facility] holistic and medical approach to weight loss with emphasis on lifestyle modification. 05/01/2024: Weight: 159, BMI: 28.16. SECA reviewed, reveals primarily fat loss within the minimal muscle loss. Patient is encouraged to continue making health-conscious diet choices. Reviewed the importance of adequate nutrition in the setting of GLP-1 induced appetite suppression. Reminded of the importance as food is fuel. Reviewed protein goal -goal 80 g/day. Patient encouraged to continue to work to increase physical activity with added strength training twice-weekly. As patient has been on Zepbound 2.5 for 4+ weeks, interested in increasing dose. Rx for Zepbound 5 mg SC weekly sent to pharmacy. 03/15/24:Weight: 171.9, BMI: 30.5. Reviewed SECA/goals for implementing sustainable lifestyle changes. Patient is encouraged to increase physical activity, goal 8-10k steps/day. Also discussed the importance of strength training with proper safety/body mechanics for maintenance of muscle mass/bone health. Patient encouraged to drink 60-80oz water/day. Reviewed nutrition, recommending food diary x 1 week to ensure adequate caloric/protein intake. Goal of 80-100g protein/day. Reviewed risks, benefits, and side effects of weight management medications including phentermine, Topamax, Contrave, metformin, and GLP-1 agonist. Patient interested in GLP-1 agonist Zepbound. Denies personal/family history of medullary thyroid cancer/M EN syndrome. Rx for Zepbound 2.5 mg SC weekly sent to pharmacy. Reviewed expectations for PA process/insurance coverage. If he would like to initiate therapy with an office compounded to his appetite injection, 2.5 mg administered in office today. All questions answered to the patient's satisfaction. Patient demonstrates understanding of diagnosis and treatments discussed. Follow-up in 4 weeks, sooner should any questions/concerns arise. Case discussed with collaborating physician Brown Moreno who has reviewed the assessment/plan. Chart, medications, labs, and vital signs reviewed. Dictation completed with the use of [employer] voice recognition software, prone to medical misidentifications and grammatical errors. All errors are unintentional. Although the practitioner does try to identify and correct errors, some may be present. Please do not hesitate to contact the practitioner for clarification. Total time was 30 minutes spent with >50% on coordination of care and patient education. 08/16/2024 Nutritional counseling (ICD-10 - Z71.3) Yanely is a 44-year-old female with a PMH of gastric sleeve, HILTON requiring CPAP, elevated BP without dx of HTN, anxiety, depression that presents for weight management follow-up. Reviewed [facility] holistic and medical approach to weight loss with emphasis on lifestyle modification. 08/16/24: Weight: 143, BMI: 25.3. Patient down 3 pounds. SECA reviewed, reveals loss of maintenance of healthy muscle mass. Fat mass is very near normal range. Again reviewed the importance of adequate nutrition in the setting of GLP-1 induced appetite suppression. Patient feels her eating habits reflect her childhood during which she had food insecurity and did not eat often. Recommended at least 3 meals/day even if they are light with prioritization of protein intake. Consider meeting with cheese packer. Recommending daily multivitamin. Plan to continue Zepbound 7.5 mg SC weekly and follow-up in 1 month. Will consider decreasing dose/transition to maintenance dosing at time of next visit. 07/12/2024: Weight: 146, BMI: 25.8. Patient down 10 pounds. Seca reviewed, reveals primarily loss of fat mass. Patient is encouraged to continue prioritizing protein intake -goal 80 g/day. She is additionally encouraged to continue walking regularly with added strength training 2-3 times weekly. Plan to continue 7.5 mg of Zepbound and follow-up in 1 month. 05/31/2024: Weight: 156, BMI: 27.6. Patient down 3 pounds. SECA reviewed, reveals 3 pounds of fat loss. Reviewed the importance of adequate nutrition in terms of calorie/protein intake to ensure healthy metabolism. The patient is encouraged to incorporate light meals more frequently. She is additionally encouraged to continue walking regularly discussed importance of strength training for continued maintenance of muscle mass. Patient will finish off current prescription for 5 mg, will send increased dose (Zepbound 7.5 mg) to begin upon completion. 05/01/2024: Weight: 159, BMI: 28.16. SECA reviewed, reveals primarily fat loss within the minimal muscle loss. Patient is encouraged to continue making health-conscious diet choices. Reviewed the importance of adequate nutrition in the setting of GLP-1 induced appetite suppression. Reminded of the importance as food is fuel. Reviewed protein goal -goal 80 g/day. Patient encouraged to continue to work to increase physical activity with added strength training twice-weekly. As patient has been on Zepbound 2.5 for 4+ weeks, interested in increasing dose. Rx for Zepbound 5 mg SC weekly sent to pharmacy. 03/15/24:Weight: 171.9, BMI: 30.5. Reviewed SECA/goals for implementing sustainable lifestyle changes. Patient is encouraged to increase physical activity, goal 8-10k steps/day. Also discussed the importance of strength training with proper safety/body mechanics for maintenance of muscle mass/bone health. Patient encouraged to drink 60-80oz water/day. Reviewed nutrition, recommending food diary x 1 week to ensure adequate caloric/protein intake. Goal of 80-100g protein/day. Reviewed risks, benefits, and side effects of weight management medications including phentermine, Topamax, Contrave, metformin, and GLP-1 agonist. Patient interested in GLP-1 agonist Zepbound. Denies personal/family history of medullary thyroid cancer/M EN syndrome. Rx for Zepbound 2.5 mg SC weekly sent to pharmacy. Reviewed expectations for PA process/insurance coverage. If he would like to initiate therapy with an office compounded to his appetite injection, 2.5 mg administered in office today. All questions answered to the patient's satisfaction. Patient demonstrates understanding of diagnosis and treatments discussed. Follow-up in 4 weeks, sooner should any questions/concerns arise. Case discussed with collaborating physician Brown Moreno who has reviewed the assessment/plan. Chart, medications, labs, and vital signs reviewed. Dictation completed with the use of [employer] voice recognition software, prone to medical misidentifications and grammatical errors. All errors are unintentional. Although the practitioner does try to identify and correct errors, some may be present. Please do not hesitate to contact the practitioner for clarification. Total time was 30 minutes spent with >50% on coordination of care and patient education. 09/20/2024 Encounter for examination of blood pressure without abnormal findings (ICD-10 - Z01.30) Yanely is a 44-year-old female with a PMH of gastric sleeve, HILTON requiring CPAP, elevated BP without dx of HTN, anxiety, depression that presents for weight management follow-up. Reviewed [facility] holistic and medical approach to weight loss with emphasis on lifestyle modification. 09/20/2024: Weight: 138.2, BMI: 24.5. Patient down 5 pounds. SECA reviewed, reveals 4 pounds of fat loss and 0.8 pounds of muscle mass loss. She is encouraged to continue making health-conscious diet choices and prioritizing protein intake. Discussed importance of nutrient rich/protein dense snacks/light meals. Patient encouraged to increase water intake, goal 40 to 60 ounces/day. She is encouraged to continue walking regularly with added use of free weights 2-3 times weekly. Patient will transition to Zepbound 7.5 mg SC every other week and follow-up in 4 to 6 weeks. 08/16/24: Weight: 143, BMI: 25.3. Patient down 3 pounds. SECA reviewed, reveals loss of maintenance of healthy muscle mass. Fat mass is very near normal range. Again reviewed the importance of adequate nutrition in the setting of GLP-1 induced appetite suppression. Patient feels her eating habits reflect her childhood during which she had food insecurity and did not eat often. Recommended at least 3 meals/day even if they are light with prioritization of protein intake. Consider meeting with cheese packer. Recommending daily multivitamin. Plan to continue Zepbound 7.5 mg SC weekly and follow-up in 1 month. Will consider decreasing dose/transition to maintenance dosing at time of next visit. 07/12/2024: Weight: 146, BMI: 25.8. Patient down 10 pounds. Seca reviewed, reveals primarily loss of fat mass. Patient is encouraged to continue prioritizing protein intake -goal 80 g/day. She is additionally encouraged to continue walking regularly with added strength training 2-3 times weekly. Plan to continue 7.5 mg of Zepbound and follow-up in 1 month. 05/31/2024: Weight: 156, BMI: 27.6. Patient down 3 pounds. SECA reviewed, reveals 3 pounds of fat loss. Reviewed the importance of adequate nutrition in terms of calorie/protein intake to ensure healthy metabolism. The patient is encouraged to incorporate light meals more frequently. She is additionally encouraged to continue walking regularly discussed importance of strength training for continued maintenance of muscle mass. Patient will finish off current prescription for 5 mg, will send increased dose (Zepbound 7.5 mg) to begin upon completion. 05/01/2024: Weight: 159, BMI: 28.16. SECA reviewed, reveals primarily fat loss within the minimal muscle loss. Patient is encouraged to continue making health-conscious diet choices. Reviewed the importance of adequate nutrition in the setting of GLP-1 induced appetite suppression. Reminded of the importance as food is fuel. Reviewed protein goal -goal 80 g/day. Patient encouraged to continue to work to increase physical activity with added strength training twice-weekly. As patient has been on Zepbound 2.5 for 4+ weeks, interested in increasing dose. Rx for Zepbound 5 mg SC weekly sent to pharmacy. 03/15/24:Weight: 171.9, BMI: 30.5. Reviewed SECA/goals for implementing sustainable lifestyle changes. Patient is encouraged to increase physical activity, goal 8-10k steps/day. Also discussed the importance of strength training with proper safety/body mechanics for maintenance of muscle mass/bone health. Patient encouraged to drink 60-80oz water/day. Reviewed nutrition, recommending food diary x 1 week to ensure adequate caloric/protein intake. Goal of 80-100g protein/day. Reviewed risks, benefits, and side effects of weight management medications including phentermine, Topamax, Contrave, metformin, and GLP-1 agonist. Patient interested in GLP-1 agonist Zepbound. Denies personal/family history of medullary thyroid cancer/M EN syndrome. Rx for Zepbound 2.5 mg SC weekly sent to pharmacy. Reviewed expectations for PA process/insurance coverage. If he would like to initiate therapy with an office compounded to his appetite injection, 2.5 mg administered in office today. All questions answered to the patient's satisfaction. Patient demonstrates understanding of diagnosis and treatments discussed. Follow-up in 4 weeks, sooner should any questions/concerns arise. Case discussed with collaborating physician Brown Moreno who has reviewed the assessment/plan. Chart, medications, labs, and vital signs reviewed. Dictation completed with the use of [employer] voice recognition software, prone to medical misidentifications and grammatical errors. All errors are unintentional. Although the practitioner does try to identify and correct errors, some may be present. Please do not hesitate to contact the practitioner for clarification. Total time was 30 minutes spent with >50% on coordination of care and patient education. 12/13/2024 Encounter for examination of blood pressure without abnormal findings (ICD-10 - Z01.30) Yanely is a 44-year-old female with a PMH of gastric sleeve, HILTON requiring CPAP, elevated BP without dx of HTN, anxiety, depression that presents for weight management follow-up. Reviewed [facility] holistic and medical approach to weight loss with emphasis on lifestyle modification. 12/13/2024: Weight: 125.8, BMI: 22.3 (-7lbs) ALLEY reviewed, reveals primarily fat loss. Discussed importance of prioritizing her own mental health and utilizing support systems. Plan to decrease dose of Zepbound to 2.5 mg every other week. Reviewed importance of adequate caloric intake, provided sample of Ensure complete nutrition drinks. Follow-up in 4 weeks. 11/01/2024: Weight: 132, BMI: 23.4. (-6lbs) 09/20/2024: Weight: 138.2, BMI: 24.5. (-5lbs) 08/16/24: Weight: 143, BMI: 25.3. (-3lbs) 07/12/2024: Weight: 146, BMI: 25.8. (-10lbs) 05/31/2024: Weight: 156, BMI: 27.6. (-3lbs) 05/01/2024: Weight: 159, BMI: 28.16. (-12lbs) 03/15/24:Weight: 171.9, BMI: 30.5. All questions answered to the patient's satisfaction. Patient demonstrates understanding of diagnosis and treatments discussed. Follow-up in 4 weeks, sooner should any questions/concerns arise. Case discussed with collaborating physician Brown Moreno who has reviewed the assessment/plan. Chart, medications, labs, and vital signs reviewed. Dictation completed with the use of [employer] voice recognition software, prone to medical misidentifications and grammatical errors. All errors are unintentional. Although the practitioner does try to identify and correct errors, some may be present. Please do not hesitate to contact the practitioner for clarification. Total time was 30 minutes spent with >50% on coordination of care and patient education. 11/01/2024 Encounter for examination of blood pressure without abnormal findings (ICD-10 - Z01.30) Yanely is a 44-year-old female with a PMH of gastric sleeve, HILTON requiring CPAP, elevated BP without dx of HTN, anxiety, depression that presents for weight management follow-up. Reviewed [facility] holistic and medical approach to weight loss with emphasis on lifestyle modification. 11/01/2024: Weight: 132, BMI: 23.4. (-6lbs). SECA reviewed, reveals 5 pounds of fat loss and 0.3 pounds of muscle mass loss. Patient encouraged to continue making health-conscious diet choices and prioritizing protein intake. Discussed importance of regular eating habits and adequate hydration. She is encouraged to maintain physically active lifestyle. Will try to maintain weight loss on Zepbound 5 mg every 7 to 10 days and follow-up in 6 weeks. 09/20/2024: Weight: 138.2, BMI: 24.5. (-5lbs) 08/16/24: Weight: 143, BMI: 25.3. (-3lbs) 07/12/2024: Weight: 146, BMI: 25.8. (-10lbs) 05/31/2024: Weight: 156, BMI: 27.6. (-3lbs) 05/01/2024: Weight: 159, BMI: 28.16. (-12lbs) 03/15/24:Weight: 171.9, BMI: 30.5. All questions answered to the patient's satisfaction. Patient demonstrates understanding of diagnosis and treatments discussed. Follow-up in 4 weeks, sooner should any questions/concerns arise. Case discussed with collaborating physician Brown Moreno who has reviewed the assessment/plan. Chart, medications, labs, and vital signs reviewed. Dictation completed with the use of [employer] voice recognition software, prone to medical misidentifications and grammatical errors. All errors are unintentional. Although the practitioner does try to identify and correct errors, some may be present. Please do not hesitate to contact the practitioner for clarification. Total time was 30 minutes spent with >50% on coordination of care and patient education. 05/01/2024 H/O gastric sleeve (ICD-10 - Z90.3) Yanely is a 44-year-old female with a PMH of gastric sleeve, HILTON requiring CPAP, elevated BP without dx of HTN, anxiety, depression that presents for weight management follow-up. Reviewed [facility] holistic and medical approach to weight loss with emphasis on lifestyle modification. 05/01/2024: Weight: 159, BMI: 28.16. SECA reviewed, reveals primarily fat loss within the minimal muscle loss. Patient is encouraged to continue making health-conscious diet choices. Reviewed the importance of adequate nutrition in the setting of GLP-1 induced appetite suppression. Reminded of the importance as food is fuel. Reviewed protein goal -goal 80 g/day. Patient encouraged to continue to work to increase physical activity with added strength training twice-weekly. As patient has been on Zepbound 2.5 for 4+ weeks, interested in increasing dose. Rx for Zepbound 5 mg SC weekly sent to pharmacy. 03/15/24:Weight: 171.9, BMI: 30.5. Reviewed SECA/goals for implementing sustainable lifestyle changes. Patient is encouraged to increase physical activity, goal 8-10k steps/day. Also discussed the importance of strength training with proper safety/body mechanics for maintenance of muscle mass/bone health. Patient encouraged to drink 60-80oz water/day. Reviewed nutrition, recommending food diary x 1 week to ensure adequate caloric/protein intake. Goal of 80-100g protein/day. Reviewed risks, benefits, and side effects of weight management medications including phentermine, Topamax, Contrave, metformin, and GLP-1 agonist. Patient interested in GLP-1 agonist Zepbound. Denies personal/family history of medullary thyroid cancer/M EN syndrome. Rx for Zepbound 2.5 mg SC weekly sent to pharmacy. Reviewed expectations for PA process/insurance coverage. If he would like to initiate therapy with an office compounded to his appetite injection, 2.5 mg administered in office today. All questions answered to the patient's satisfaction. Patient demonstrates understanding of diagnosis and treatments discussed. Follow-up in 4 weeks, sooner should any questions/concerns arise. Case discussed with collaborating physician Brown Moreno who has reviewed the assessment/plan. Chart, medications, labs, and vital signs reviewed. Dictation completed with the use of [employer] voice recognition software, prone to medical misidentifications and grammatical errors. All errors are unintentional. Although the practitioner does try to identify and correct errors, some may be present. Please do not hesitate to contact the practitioner for clarification. Total time was 30 minutes spent with >50% on coordination of care and patient education. 03/15/2024 H/O gastric sleeve (ICD-10 - Z90.3) Yanely is a 44-year-old female with a PMH of gastric sleeve, HILTON requiring CPAP, elevated BP without dx of HTN, anxiety, depression that presents for weight management consult. Patient was reassured and welcomed to the practice. Discussed [facility] holistic and medical approach to weight loss with emphasis on lifestyle modification. Patient is educated that a healthy lifestyle aids in combating obesity as well as reducing the risk of developing obesity-related medical complications including but not limited to diabetes and cardiovascular disease. Detailed education provided about taking steps to initiate sustainable lifestyle changes including incorporating regular physical activity, making healthy diet choices, and prioritizing mental health. Information provided about literature including The Food Rules by Andry Huston and Eat Fat Get Lean by Dr Thom Melvin. Handouts including lifestyle checklist, protein content of food, low calorie snacks, and cholesterol information sheet provided. Diagnostic testing/ SECA scale offered. Discussed the importance of regular SECA scale measurements to ensure healthy weight loss. 03/15/24:Weight: 171.9, BMI: 30.5. Reviewed SECA/goals for implementing sustainable lifestyle changes. Patient is encouraged to increase physical activity, goal 8-10k steps/day. Also discussed the importance of strength training with proper safety/body mechanics for maintenance of muscle mass/bone health. Patient encouraged to drink 60-80oz water/day. Reviewed nutrition, recommending food diary x 1 week to ensure adequate caloric/protein intake. Goal of 80-100g protein/day. Reviewed risks, benefits, and side effects of weight management medications including phentermine, Topamax, Contrave, metformin, and GLP-1 agonist. Patient interested in GLP-1 agonist Zepbound. Denies personal/family history of medullary thyroid cancer/M EN syndrome. Rx for Zepbound 2.5 mg SC weekly sent to pharmacy. Reviewed expectations for PA process/insurance coverage. If he would like to initiate therapy with an office compounded to his appetite injection, 2.5 mg administered in office today. After consultation and careful review of medical history, this patient would benefit from Zepbound based off of the following criteria met: Patient is over the age of 18 with a BMI of 30.5. Additional comorbidities include HILTON requiring CPAP. Patient has trialed other methods of weight loss including gastric sleeve, phentermine, Wegovy and improving diet and exercise. This medication is prescribed by or in consultation with a board-certified obesity and weight management physician (Dr. Sulema Moreno or Dr. Aldo Moreno). All questions answered to the patient's satisfaction. Patient demonstrates understanding of diagnosis and treatments discussed. Follow-up in 4 weeks, sooner should any questions/concerns arise. Case discussed with collaborating physician Brown Moreno who has reviewed the assessment/plan. Chart, medications, labs, and vital signs reviewed. Dictation completed with the use of [employer] voice recognition software, prone to medical misidentifications and grammatical errors. All errors are unintentional. Although the practitioner does try to identify and correct errors, some may be present. Please do not hesitate to contact the practitioner for clarification. Total time was 60 minutes spent with >50% on coordination of care and patient education. 03/15/2024 Nutritional counseling (ICD-10 - Z71.3) Yanely is a 44-year-old female with a PMH of gastric sleeve, HILTON requiring CPAP, elevated BP without dx of HTN, anxiety, depression that presents for weight management consult. Patient was reassured and welcomed to the practice. Discussed [facility] holistic and medical approach to weight loss with emphasis on lifestyle modification. Patient is educated that a healthy lifestyle aids in combating obesity as well as reducing the risk of developing obesity-related medical complications including but not limited to diabetes and cardiovascular disease. Detailed education provided about taking steps to initiate sustainable lifestyle changes including incorporating regular physical activity, making healthy diet choices, and prioritizing mental health. Information provided about literature including The Food Rules by Andry Huston and Eat Fat Get Lean by Dr Thom Melvin. Handouts including lifestyle checklist, protein content of food, low calorie snacks, and cholesterol information sheet provided. Diagnostic testing/ SECA scale offered. Discussed the importance of regular SECA scale measurements to ensure healthy weight loss. 03/15/24:Weight: 171.9, BMI: 30.5. Reviewed SECA/goals for implementing sustainable lifestyle changes. Patient is encouraged to increase physical activity, goal 8-10k steps/day. Also discussed the importance of strength training with proper safety/body mechanics for maintenance of muscle mass/bone health. Patient encouraged to drink 60-80oz water/day. Reviewed nutrition, recommending food diary x 1 week to ensure adequate caloric/protein intake. Goal of 80-100g protein/day. Reviewed risks, benefits, and side effects of weight management medications including phentermine, Topamax, Contrave, metformin, and GLP-1 agonist. Patient interested in GLP-1 agonist Zepbound. Denies personal/family history of medullary thyroid cancer/M EN syndrome. Rx for Zepbound 2.5 mg SC weekly sent to pharmacy. Reviewed expectations for PA process/insurance coverage. If he would like to initiate therapy with an office compounded to his appetite injection, 2.5 mg administered in office today. After consultation and careful review of medical history, this patient would benefit from Zepbound based off of the following criteria met: Patient is over the age of 18 with a BMI of 30.5. Additional comorbidities include HILTON requiring CPAP. Patient has trialed other methods of weight loss including gastric sleeve, phentermine, Wegovy and improving diet and exercise. This medication is prescribed by or in consultation with a board-certified obesity and weight management physician (Dr. Sulema Moreno or Dr. Aldo Moreno). All questions answered to the patient's satisfaction. Patient demonstrates understanding of diagnosis and treatments discussed. Follow-up in 4 weeks, sooner should any questions/concerns arise. Case discussed with collaborating physician Brown Moreno who has reviewed the assessment/plan. Chart, medications, labs, and vital signs reviewed. Dictation completed with the use of [employer] voice recognition software, prone to medical misidentifications and grammatical errors. All errors are unintentional. Although the practitioner does try to identify and correct errors, some may be present. Please do not hesitate to contact the practitioner for clarification. Total time was 60 minutes spent with >50% on coordination of care and patient education. 05/01/2024 Nutritional counseling (ICD-10 - Z71.3) Yanely is a 44-year-old female with a PMH of gastric sleeve, HILTON requiring CPAP, elevated BP without dx of HTN, anxiety, depression that presents for weight management follow-up. Reviewed [facility] holistic and medical approach to weight loss with emphasis on lifestyle modification. 05/01/2024: Weight: 159, BMI: 28.16. SECA reviewed, reveals primarily fat loss within the minimal muscle loss. Patient is encouraged to continue making health-conscious diet choices. Reviewed the importance of adequate nutrition in the setting of GLP-1 induced appetite suppression. Reminded of the importance as food is fuel. Reviewed protein goal -goal 80 g/day. Patient encouraged to continue to work to increase physical activity with added strength training twice-weekly. As patient has been on Zepbound 2.5 for 4+ weeks, interested in increasing dose. Rx for Zepbound 5 mg SC weekly sent to pharmacy. 03/15/24:Weight: 171.9, BMI: 30.5. Reviewed SECA/goals for implementing sustainable lifestyle changes. Patient is encouraged to increase physical activity, goal 8-10k steps/day. Also discussed the importance of strength training with proper safety/body mechanics for maintenance of muscle mass/bone health. Patient encouraged to drink 60-80oz water/day. Reviewed nutrition, recommending food diary x 1 week to ensure adequate caloric/protein intake. Goal of 80-100g protein/day. Reviewed risks, benefits, and side effects of weight management medications including phentermine, Topamax, Contrave, metformin, and GLP-1 agonist. Patient interested in GLP-1 agonist Zepbound. Denies personal/family history of medullary thyroid cancer/M EN syndrome. Rx for Zepbound 2.5 mg SC weekly sent to pharmacy. Reviewed expectations for PA process/insurance coverage. If he would like to initiate therapy with an office compounded to his appetite injection, 2.5 mg administered in office today. All questions answered to the patient's satisfaction. Patient demonstrates understanding of diagnosis and treatments discussed. Follow-up in 4 weeks, sooner should any questions/concerns arise. Case discussed with collaborating physician Brown Moreno who has reviewed the assessment/plan. Chart, medications, labs, and vital signs reviewed. Dictation completed with the use of [employer] voice recognition software, prone to medical misidentifications and grammatical errors. All errors are unintentional. Although the practitioner does try to identify and correct errors, some may be present. Please do not hesitate to contact the practitioner for clarification. Total time was 30 minutes spent with >50% on coordination of care and patient education. Plan Of Treatment Pending Test Test Name Order Date LIPID PANEL, STANDARD 03/15/2024 COMPREHENSIVE METABOLIC PANEL 03/15/2024 CBC (INCLUDES DIFF/PLT) 03/15/2024 HEMOGLOBIN A1c 03/15/2024 TSH W/REFLEX TO FT4 03/15/2024 VITAMIN D,25-OH,TOTAL,IA 03/15/2024 Next Appt Details Provider Name:ANNALEE CRISPIN Ramos, 01/24/2025 03:15:00 PM, [address] [place] [address], [facility] [address], [place], [id number], Insurance Providers Payer Name Payer Address Payer Phone Subscriber Number Group Number Insured Name Patient Relationship to Insured Coverage Start Date Coverage End Date [facility] [address] [place] [address] [phone] [id number] Heberthzaida Self - patient is the insured 4 Medications Administered Medication Instructions Date of Administration Dosage Notes Tirzepatide 03/15/2024 2.5 mg Medical (General) History Medical History History ICD Code Anxiety disorder, unspecified F41.9 HILTON on CPAP G47.33 Depression, unspecified F32.A H/O gastric sleeve Z90.3 Surgical History Surgery Date(Month/Year) tubal ligation hemroidectomy umbilical hernia repair breast impants Liposuction Gastric sleeve 2015
--- OUTSIDE RECORDS SUMMARY | 2025-01-23 16:48 | XMS_ITS | Encounter Summary ---
Author Organization [employer] Address [address] [place] [address] Care Team Providers Care Airport Ramp Supervisor Name Role Phone Daniela Salmon MD Primary Care Provider [phone] Reason for Referral * Consultation (Routine) - Closed Specialty Diagnoses / Procedures Referred By Contterrie t Referred To Contact Nutrition - Weight Diagnoses Obesity (BMI 30.0-34.9) Daniela Salmon MD [address] [place] [address] Phone: tel: fax: Referral ID Status Reason Start Date Expiration Date V isits Requested Visits Authorized [id number] Closed Specialty Services Required 02/16/2024 02/15/2025 12 12 Encounter Details Date Type Department Care Team (Late st Contact Info) Description 02/11/2024 Orders Only [facility] [address] [place] [address] Daneila Salmon MD [address] [place] [address] Obesity (BMI 30.0-34.9) (Primary Dx) Social History Tobacco Use Types [...] Description 03/19/2025 10:15 AM EST Office Visit [facility] [address] [place] [address] [phone] Daniela Salmon MD [address] [place] [address] documented as of this encounter Procedures Procedure Name Priority Date/Time Associated Diagnosis Comments AMB REFERRAL TO WEIGHT MANAGEMENT Routine 11/01/2024 Obesity (BMI 30.0-34.9) documented in this encounter Results * Referral to Weight Management (11/01/2024) Daniela Salmon MD OUTPATIENT REFERRAL ORDERABLES F inal Result documented in this encounter Visit Diagnoses Diagnosis Obesity (BMI 30.0-34.9)- Primary documented in this encounter Additional Health Concerns Assessment Noted Time PHQ-9 Depression Total Score: 0 12/08/19 23 3:43 PM EDT documented as of this encounter Care Teams Airport Ramp Supervisor Relationship Specialty Start Date End Date Daniela Salmon MD [address] [place] [address] PCP - General Family Medicine 06/19/13 documented as of this encounter
[2025-01-23 17:13] LABS: Hematocrit 33.8 % (37.0-47.0); Hemoglobin 11.5 g/dl (12.0-16.0); Imm Gran Abs Auto 0.01 X10*3/uL (0.00-0.03); Imm Gran Pct Auto 0.2 % (0.0-0.4); Lymphocytes Absolute Auto 3.2 X10*3/uL (1.2-4.9); Mean Corpuscular HGB Conc 34.0 g/dl (31.0-35.0); Mean Corpuscular Hemoglobin 30.6 pg (27.0-33.0); Mean Corpuscular Volume 89.9 fL (80.0-98.0); NRBC Abs Auto 0.000 X10*3/uL (0.0-0.012); NRBC Pct Auto 0.0 /100WBC (0.0-0.2); Platelet Count 228 X10*3/uL (160-400); Red Blood Count 3.76 X10*6/uL (4.20-5.50); Reticulocytes Absolute 0.044 X10*6/uL (0.026-0.095); White Blood Count 6.3 X10*3/uL (4.8-10.8)
[2025-01-23 17:47] LABS: Alanine Aminotransferase 19 U/L (0-31); Albumin Level 4.5 g/dL (3.5-5.0); Alkaline Phosphatase 83 U/L (39-117); Anion Gap 10 (12-20); Aspartate Amino Transferase 18 U/L (5-31); Blood Urea Nitrogen 11 mg/dL (9-16); Calcium 9.5 mg/dL (8.4-10.2); Carbon Dioxide 29 mmol/L (22-29); Chloride 107 mmol/L (96-108); Estimated Glomerular Filt Rate > 60; Iron 59 mcg/dL (30-160); Magnesium 2.1 mg/dL (1.6-2.6); Percent Iron Saturation 26 % (15-50); Potassium 4.1 mmol/L (3.3-5.1); Sodium 142 mmol/L (135-145); Total Iron Binding Capacity 230 mcg/dL (228-428); Total Protein 7.4 g/dL (6.5-8.0); Unsaturated Iron Binding 171 ug/dL
[2025-01-23 18:11] LABS: Ferritin 68 ng/mL (10-250)
[2025-01-23 18:12] LABS: Folate 6.0 ng/mL (> or = 4.0); Vitamin B12 306 pg/mL (200-900)
[2025-01-24 04:58] LABS: Syphilis Screen Nonreactive (Nonreactive)
== END 2025-01-23 15:33 | disposition home or self-care (01) ==
LOC: HO.MAMMO 15:32
PROVIDERS: PCP Family Medicine; Visit Provider Family Medicine
DX: Z01.84 Encounter for antibody response examination (principal); Z12.31 Encounter for screening mammogram for malignant neoplasm of breast; E55.9 Vitamin D deficiency, unspecified; D64.9 Anemia, unspecified; R20.0 Anesthesia of skin; R25.2 Cramp and spasm; R63.4 Abnormal weight loss
CPT/HCPCS: 36415; 77063; 77067; 80048; 80076; 82306; 82607; 82728; 82746; 83540; 83735; 84443; 85025; 85045; 86780

== ENCOUNTER → 2025-01-23 16:00 | Outpatient (BNV) | payer BC, SELFPAY | PROVIDERS: PCP Family Medicine; Visit Provider Internal Medicine | DX: Z12.31 Encounter for screening mammogram for malignant neoplasm of breast (principal) | CPT/HCPCS: 77063; 77067 ==

== ENCOUNTER 2025-03-19 10:57 | Outpatient (REF) | payer BC, SELFPAY ==
--- OUTSIDE RECORDS SUMMARY | 2025-03-19 10:15 | XMS_ITS | Encounter Summary ---
Author Organization [employer] Address [address] [place] [address] Care Team Providers Care Stem Shaper Name Role Phone Daniela Salmon MD Primary Care Provider [phone] Reason for Visit * Reason Comments Follow-up Anemia Encounter Details Date Type Department Care Team ([facility] st Contact Info) Description 03/19/2025 10:15 AM EST Office Visit [facility] [address] [place] [address] [phone] Daniela Salmon MD [address] [place], [place] [phone] Current moderate episode of major depressive disorder, unspecified whether recurrent (CMS/HCC) (HCC) (Primary Dx); Tobacco use; Anemia, unspecified type; Anxiety disorder; Bariatric surgery status; Vitamin D deficiency Social History Tobacco Use Types Packs/Day Years [...] AM EDT documented as of this encounter Last Filed Vital Signs Vital Sign Reading Time Taken Comments Blood Pressure 110/64 03/19/2025 10:30 AM EST Pulse 76 03/19/2025 10:30 AM EST Temperature 37.2 C (98.9 F) 03/19/2025 10:30 AM EST Respiratory Rate 20 03/19/2025 10:30 AM EST Oxygen Saturation - - Inhaled Oxygen Concentration - - Weight 58.8 kg (129 lb 9.6 oz) 03/19/2025 10:30 AM EST Height 162.6 cm (5' 4 ) 03/19/2025 10:30 AM EST Body Mass Index 22.25 03/19/2025 10:30 AM EST documented in this encounter Miscellaneous Notes * Assessment & Plan Note - Daniela Salmon MD - 03/18/2025 9:09 PM ESTAssociated Problem(s): Bariatric surgery status -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 [place]s/p abdominoplasty in June 2017 -Encourage to take vitamins -Avoid NSAIDs -She has tried GLP1RA , which she has sopped due to drastic weight loss. Her weight is now below her goal weight documented in this encounter Plan of Treatment Scheduled Orders Name Type Priority Associated Diagnoses Orde r Schedule Ferritin Lab Routine Anemia, unspecified type Expected: 03/19/2025 (Approximate), Expires: 03/19/2026 Iron And Total Iron Binding Capacity Lab Routine Anemia, unspecified type Expected: 03/19/2025, Expires: 03/19/2026 Vitamin B12 (Cobalamin) and Folate Panel, Serum Lab Routine Anemia, unspecified type Expected: 03/19/2025 (Approximate), Expires: 03/19/2026 Vitamin D, 25-Hydroxy, Total, Immunoassay Lab Routine Vitamin D deficiency Expected: 03/19/2025 (Approximate), Expires: 03/19/2026 documented as of this encounter Procedures Procedure Name Priority Date/Time Associated Diagnosis Comments CBC WITH AUTO DIFFERENTIAL Routine 03/19/2025 11:03 AM EST Anemia, unspecified type RETICULOCYTE COUNT Routine 03/19/2025 11 :03 AM EST Anemia, unspecified type documented in this encounter Results * Reticulocyte Count (03/19/2025 11:03 AM EST) Reticulocytes Absolute 0.039 0.026 - 0.095 X10*6/uL [facility] Immature Retic Fraction 8.5 3.0 - 15.9 % [facility] Retic HGB Equivalent 34.9 30.0 - 35.0 pg [facility] Reticulocyte Percent 1.0 0.5 - 1.8 % [facility] Blood Venous blood specimen / Unknown 03/19/2025 11:03 AM EST 03/19/2025 1:04 PM EST us Daniela Salmon MD LAB BLOOD ORDERABLES Final Resul t [facility] [address] [place] [address] [phone] * (ABNORMAL) CBC auto differential (03/19/2025 11:03 AM EST) White Blood Count 7.8 4.8 - 10.8 X10*3/uL [facility] Red Blood Count 3.88(L) 4.20 - 5.50 X10*6/uL [facility] Hemoglobin 12.0 12.0 - 16.0 g/dl [facility] Hematocrit 36.5(L) 37.0 - 47.0 % [facility] Mean Corpuscular Volume 94.1 80.0 - 98.0 fL [facility] Mean Corpuscular Hemoglobin 30.9 27.0 - 33.0 pg [facility] Mean Corpuscular HGB Conc 32.9 31.0 - 35.0 g/dl [facility] Red Cell Distribution Width 14.0 11.0 - 16.0 % [facility] Platelet Count 234 160 - 400 X10*3/uL [facility] Mean Platelet Volume 11.0 9.4 - 12.3 fL [facility] Neutrophils Percent Auto 65.9 45 - 73 % [facility] Imm Gran Pct Auto 0.1 0.0 - 0.4 % [facility] Lymphocytes Percent Auto 26.4 20 - 40 % [facility] Monocytes Percent Auto 3.6 2 - 11 % [facility] Eosinophils Percent Auto 3.2 0 - 4 % [facility] Basophils Percent Auto 0.8 0 - 2 % [facility] NRBC Pct Auto 0.0 0.0 - 0.2 /100WBC [facility] Neutrophils Absolute Auto 5.1 2.0 - 8.3 x10*3/uL [facility] Imm Gran Abs Auto 0.01 0.00 - 0.03 X10*3/uL [facility] Lymphocytes Absolute Auto 2.1 1.2 - 4.9 X10*3/uL [facility] Monocytes Absolute Auto 0.3 0.1 - 1.2 X10*3/uL [facility] Eosinophils Absolute Auto 0.3 0.0 - 0.4 X10*3/uL [facility] Basophils Absolute Auto 0.1 0.0 - 0.2 X10*3/uL [facility] NRBC Abs Auto 0.000 0.0 - 0.012 X10*3/uL [facility] Blood Venous blood specimen / Unknown 03/19/2025 11:03 AM EST 03/19/2025 1:04 PM EST us Daniela Salmon MD LAB BLOOD ORDERABLES Final Resul t Performing Organization Address City/State/[facility] Co de Phone Number [facility] [address] [place] [address] [phone] documented in this encounter Visit Diagnoses Diagnosis Current moderate episode of major depressive disorder, unspecified whether recurrent (CMS/HCC) (HCC)- Primary Tobacco use Anemia, unspecified type Anxiety disorder Bariatric surgery status Vitamin D deficiency documented in this encounter Additional Health Concerns Assessment Noted Time PHQ-9 Depression Total Score: 21 025 4:08 PM EDT documented as of this encounter Care Teams Stem Shaper Relationship Specialty Start Date End Date Daniela Salmon MD [address] [place] [phone] PCP - General Family Medicine 06/19/13 documented as of this encounter
[2025-03-19 13:11] LABS: MANUAL DIFF FLAG NO
[2025-03-19 13:16] LABS: Hematocrit 36.5 % (37.0-47.0); Hemoglobin 12.0 g/dl (12.0-16.0); Imm Gran Abs Auto 0.01 X10*3/uL (0.00-0.03); Imm Gran Pct Auto 0.1 % (0.0-0.4); Lymphocytes Absolute Auto 2.1 X10*3/uL (1.2-4.9); Mean Corpuscular HGB Conc 32.9 g/dl (31.0-35.0); Mean Corpuscular Hemoglobin 30.9 pg (27.0-33.0); Mean Corpuscular Volume 94.1 fL (80.0-98.0); NRBC Abs Auto 0.000 X10*3/uL (0.0-0.012); NRBC Pct Auto 0.0 /100WBC (0.0-0.2); Platelet Count 234 X10*3/uL (160-400); Red Blood Count 3.88 X10*6/uL (4.20-5.50); Reticulocytes Absolute 0.039 X10*6/uL (0.026-0.095); White Blood Count 7.8 X10*3/uL (4.8-10.8)
--- OUTSIDE RECORDS SUMMARY | 2025-03-19 14:04 | XMS_ITS | Clinical Summary ---
Author Organization [employer] Address [address] [place] [address] Care Team Providers Care Display Maker Name Role Phone Daniela Salmon MD Primary Care Provider [phone] Allergies Active Allergy Reactions Criticality Noted Date Comments [place]-Containing Products Hives 04/28/2022 Egg Protein-Containing Drug Products 06/07/2017 Other reaction(s): Hives / Skin Rash Iodine Omeprazole Shortness of breath High 06/07/2017 Other reaction(s): Trouble Breathing , Trouble Breathing Shellfish Allergy 04/06/2022 Medications cholecalciferol (Vitamin D-3) 25 MCG (1000 UT) tablet Take 1 capsule by mouth. 11/20/2020 Active terbinafine (LamISIL) 250 MG tablet Take 1 tablet by mouth Once per day. 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 - Seen by cold strip roller on 10/24/2024. Diagnosis tarsal tunnel syndrome and lumbar radiculopathy Assessment & Plan (09/14/2024 10:45 AM EDT): - Evaluate with nerve conduction test - Will check electrolytes and vitamin - Recommended to try pickle juice - Will refer to cold strip roller - Consider evaluation for circulation if all of the tests are non-diagnostic Irregular menstruation 09/01/2022 Assessment & Plan (12/13/2022 7:02 AM EDT): US in Apr 2022 showed ovarian cyst and borderline thickness of endometrial stripe Anticipating evaluation by VERIFICATION REP soon Assessment & Plan (09/07/2022 7:32 AM EDT): US in Apr 2022 showed ovarian cyst Has upcoming appointment with VERIFICATION REP Anxiety disorder 09/01/2022 Assessment & Plan (12/22/2024 10:58 AM [...] 6:22 AM EST): -During last of twins [id number] - section on 08/21/20, no complication -continue [...] Bariatric surgery status 04/06/2022 Assessment & Plan (03/18/2025 9:09 PM EST): -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 ([facility]) -s/p abdominoplasty in June 2017 -Encourage to take vitamins -Avoid NSAIDs -She has tried GLP1RA , which she has sopped due to drastic weight loss. Her weight is now below her goal weight Assessment & Plan (12/22/2024 10:57 AM EDT): -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 ([facility]) -s/p abdominoplasty in June 2017 -Encourage to take vitamins -Avoid NSAIDs -She has tried GLP1RA , which she has sopped due to drastic weight loss. Her weight is now below her goal weight Assessment & Plan (09/07/2022 7:31 AM EDT): -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 ([facility]) -s/p abdominoplasty in June 2017 -Encourage to take vitamins -Avoid NSAIDs Assessment & Plan (05/01/2022 6:35 AM EST): -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 ([facility]) -s/p abdominoplasty in June 2017 -Encourage to take vitamins -Avoid NSAIDs Ovarian cyst 10/09/2015 Assessment & Plan (12/13/2022 7:03 AM EDT): Pt had a recent US with VERIFICATION REP, and was told that a stable, benign cyst, which may have resolved. Has upcoming appointment with VERIFICATION REP Assessment & Plan (09/01/2022 4:55 PM EDT): Has upcoming appointment with VERIFICATION REP Kidney stone 10/09/2015 Steatosis of liver 10/09/2015 [...] Diagnosed Date Resolved Date Obesity (BMI 30.0-34.9) 05/01/2022 0812/2024 Assessment & Plan (08/15/2023 6:15 PM EDT): [...] Encounters Date Type Department Care Team Description 03/19/2025 10:15 AM EST Office Visit [facility] [address] [place] [phone] Daniela aSlmon MD Current moderate episode of major depressive disorder, unspecified whether recurrent (CMS/HCC) (HCC) (Primary Dx); Tobacco use; Anemia, unspecified type; Anxiety disorder; Bariatric surgery status; Vitamin D deficiency 03/19/2025 Travel 03/16/2025 Telephone [facility] [address] [place] [phone] Candace Martin MA 01/26/2025 Results Follow-Up [facility] [address] [place] [phone] Daniela Salmon MD Ferritin, Iron And Total Iron Binding Capacity, Reticulocyte Count, Additional followed-up results: 8 01/23/2025 Orders Only [facility] [address] [place] [phone] Daniela Salmon MD from Last 3 Months Immunizations Immunization Administration Dates Next Due Hep A, Adult 10/18/2014,09/09/2010 Pfizer Covid-19 Vaccine 12+ 03/19/2025, Pfizer Covid-19 Vaccine 12+ Bivalent 04/28/2022 Pneumococcal Conjugate PCV 20 03/19/2025 Pneumococcal Polysaccharide PPSV23 08/17/2013 TD (adult), 2 [...] 20 03/19/2025 10:30 AM EST Oxygen Saturation 99% 12/07/2022 3:43 PM EDT Inhaled Oxygen Concentration - - Weight 58.8 kg (129 lb 9.6 oz) 03/19/2025 10:30 AM EST Height 162.6 cm (5' 4 ) 03/19/2025 10:30 AM EST Body Mass Index 22.25 03/19/2025 10:30 AM EST Plan of Treatment Health Maintenance Due Date Last Done Comments CT Colonography 1978 FIT DNA/Cologuard 1978 FIT 1978 FOBT 1980 Sigmoidoscopy 1980 Family Planning (PISQ) 1993 Influenza Vaccine (#1) 2024 Cervical Cancer Screening 03/27/2025 HPV/Cotest 03/27/2025 03/27/2020, 01/04/2018 Pap Smear 03/27/2025 03/27/2020 Depression Monitoring 06/14/2025 12/12/2024, 025 Disability Screening 12/11/2025 12/11/2024 Alcohol/Substance Use Screening 12/12/2025 12/12/2024 SDOH Screening 12/12/2025 12/12/2024 Tobacco Screening 12/22/2025 12/22/2024 Mammogram 01/23/2027 01/23/2025, 12/25, 01/05/2023, Additional history exists Zoster Vaccines (1 of 2) 02/15/2028 Lipid Panel 05/13/2029 05/13/2024, /04/2023, 04/28/2022, Additional history exists DTaP/Tdap/Td Vaccines (3 - Td or Tdap) 07/22/2030 07/22/2020, 02/29/2012, 03/06/2008 Colonoscopy 05/05/2033 05/05/2023 Colorectal Cancer Screening 05/05/2033 RSV Patients and Patients Aged 60 years or older (1 - 1-dose 75+ series) 2053 Hepatitis A Vaccines Completed 10/18/2014, 09/10/19 HIV Screening Completed 11/19/2020 Hepatitis C Screening Completed 11/19/2020 COVID-19 Vaccine Completed 03/19/2025, 06/2022, 12/10/2020, Additional history exists Pneumococcal Vaccine: Pediatrics (0 to 5 Years) and At-Risk Patients (6 to 49) Years Completed 03/19/2025, 08/17/2013 HIB Vaccines Aged Out No longer eligi [...] Procedure Name Priority Date/Time Associated Diagnosis Comments RETICULOCYTE COUNT Routine 03/19/2025 11 :03 AM EST Anemia, unspecified type CBC WITH AUTO DIFFERENTIAL Routine 03/19/2025 11:03 AM EST Anemia, unspecified type VITAMIN D,25-OH,TOTAL,IA Routine 01/23/2025 4:20 PM EDT Vitamin D deficiency HEPATIC FUNCTION PANEL Routine 01/23/2025 4:20 PM EDT Weight loss BASIC METABOLIC PANEL Routine 01/23/2025 4:20 PM EDT Numbness of right foot Leg cramp MAGNESIUM Routine 01/23/2025 4:20 PM EDT Leg cramp CBC WITH AUTO DIFFERENTIAL Routine 01/23/2025 4:20 PM EDT Anemia, unspecified type SYPHILIS SCREEN Routine 01/23/2025 4:20 PM EDT Numbness of right foot VITAMIN B12/FOLATE, SERUM PANEL Routine 01/23/2025 4:20 PM EDT Numbness of right foot TSH W/REFLEX TO FT4 Routine 01/23/2025 4 :20 PM EDT Numbness of right foot Leg cramp RETICULOCYTE COUNT Routine 01/23/2025 4: 20 PM EDT Anemia, unspecified type IRON AND TOTAL IRON BINDING CAPACITY Routine 01/23/2025 4:20 PM EDT Anemia, unspecified type FERRITIN Routine 01/23/2025 4:20 PM EDT Anemia, unspecified type BI MAMMOGRAM SCREEN W AHMET W IMPLANTS MAYNOR Routine 01/23/2025 3:53 PM EDT LIPID PANEL, STANDARD Routine 05/13/2024 9:48 AM EST COLONOSCOPY Routine 05/05/2023 ZZZ HISTORICAL HEPATITIS C AB W/REFL TO HCV RNA, QN, PCR Routine 11/19/2020 11:52 AM EDT HIV 1/2 ANTIGEN/ANTIBODY, FOURTH GENERATION W/RFL Routine 11/19/2020 11:52 AM EDT PAP/HPV Routine 03/27/2020 from Last 3 Months or Most Recently Relevant to Health Maintenance Results * (ABNORMAL) CBC auto differential (03/19/2025 11:03 AM EST) Only the most recent of2 resultswithin the time period is included. White Blood Count 7.8 4.8 - 10.8 X10*3/uL [facility] Red Blood Count 3.88(L) 4.20 - 5.50 X10*6/uL [facility] Hemoglobin 12.0 12.0 - 16.0 g/dl [facility] Hematocrit 36.5(L) 37.0 - 47.0 % [facility] Mean Corpuscular Volume 94.1 80.0 - 98.0 fL [facility] Mean Corpuscular Hemoglobin 30.9 27.0 - 33.0 pg [facility] Mean Corpuscular HGB Conc 32.9 31.0 - 35.0 g/dl [facility] Red Cell Distribution Width 14.0 11.0 - 16.0 % [facility] Platelet Count 234 160 - 400 X10*3/uL [facility] Mean Platelet Volume 11.0 9.4 - 12.3 fL [facility] Neutrophils Percent Auto 65.9 45 - 73 % [facility] Imm Gran Pct Auto 0.1 0.0 - 0.4 % [facility] Lymphocytes Percent Auto 26.4 20 - 40 % [facility] Monocytes Percent Auto 3.6 2 - 11 % [facility] Eosinophils Percent Auto 3.2 0 - 4 % [facility] Basophils Percent Auto 0.8 0 - 2 % [facility] NRBC Pct Auto 0.0 0.0 - 0.2 /100WBC [facility] Neutrophils Absolute Auto 5.1 2.0 - 8.3 x10*3/uL [facility] Imm Gran Abs Auto 0.01 0.00 - 0.03 X10*3/uL [facility] Lymphocytes Absolute Auto 2.1 1.2 - 4.9 X10*3/uL [facility] Monocytes Absolute Auto 0.3 0.1 - 1.2 X10*3/uL [facility] Eosinophils Absolute Auto 0.3 0.0 - 0.4 X10*3/uL [facility] Basophils Absolute Auto 0.1 0.0 - 0.2 X10*3/uL [facility] NRBC Abs Auto 0.000 0.0 - 0.012 X10*3/uL [facility] Blood Venous blood specimen / Unknown 03/19/2025 11:03 AM EST 03/19/2025 1:04 PM EST us Daniela Salmon MD LAB BLOOD ORDERABLES Final Resul t [facility] [address] [place] [phone] * Reticulocyte Count (03/19/2025 11:03 AM EST) Only the most recent of2 resultswithin the time period is included. Reticulocytes Absolute 0.039 0.026 - 0.095 X10*6/uL [facility] Immature Retic Fraction 8.5 3.0 - 15.9 % [facility] Retic HGB Equivalent 34.9 30.0 - 35.0 pg [facility] Reticulocyte Percent 1.0 0.5 - 1.8 % [facility] Blood Venous blood specimen / Unknown 03/19/2025 11:03 AM EST 03/19/2025 1:04 PM EST us Daniela Sakurai MD LAB BLOOD ORDERABLES Final Resul t Performing Organization Address City/[facility]/ZIP Co de Phone Number [facility] [address] [place] [phone] * Syphilis Screen (01/23/2025 4:20 PM EDT) Syphilis Screen Nonreactive Nonreactive [facility] Blood 01/23/2025 4:20 PM EDT 01/23/2025 4:20 PM EDT Daniela Salmon MD LAB BLOOD ORDERABLES Final Resul t Performing Organization Address [facility] Co de Phone Number [facility] [address] [place] [phone] * (ABNORMAL) Vitamin D, 25-Hydroxy, Total, Immunoassay (01/23/2025 4:20 PM EDT) Vitamin D 25-OH Total 28.7(L) >30 ng/mL [facility] Comment: Health Based Reference Values*< 20 ng/mL Dcbzmpszv75-78 ng/mL Insufficient> 30 ng/mL Sufficient*Ernesto TAPIA. N Engl J Med. 2007;357:266-280There is no well-established upper level of normal vitamin Dlevels. Some laboratories use 50 ng/mL as an upper limit ofnormal. However, toxicity is patient-dependent and may occurat any level. Careful correlation with the patient'spresentation is necessary and, if there is concern forvitamin D toxicity, treatment should be consideredirrespective of the serum level.Care must be taken in interpreting Vitamin D results fromdifferent laboratories and methodologies. Published datademonstrated that results from patients undergoinghemodialysis may show a negative bias when tested withvarious automated 25-OH vitamin D assays when compared toLC-MS/MS.When testing samples from patients whose predominant form ofVitamin D is Vitamin D2, such as patients receiving VitaminD2 supplementation, results that are subtherapeutic shouldbe confirmed with another method such as LC-MS/MS. Blood Venous blood specimen / Unknown 01/23/2025 4:20 PM EDT 01/23/2025 4:20 PM EDT us Daniela Salmon MD LAB BLOOD ORDERABLES Final Resul t [facility] [address] [place] [phone] * Vitamin B12 (Cobalamin) and Folate Panel, Serum (01/23/2025 4:20 PM EDT) Vitamin B12 306 200 - 900 pg/mL [facility] Comment:NORMAL 200-900 PG/ML INDETERMINATE 160-199 PG/ML DEFICIENT < 160 PG/ML Folate 6.0 > or = 4.0 ng/mL [facility] Comment:Reference Values:> o r = 4.0 ng/mL< 4.0 ng/mL suggests folate deficiency Methotrexate, aminopterin and folinic acid(leucovorin) are chemotherapeutic agents whose molecularstructures are similar to folate; therefore, the Architectfolate assay cannot be used for patients using these drugs. Blood 01/23/2025 4:20 PM EDT 01/23/2025 4:20 PM EDT us Daniela Salmon MD LAB BLOOD ORDERABLES Final Resul t Performing Organization Address [facility]/ZIP Co de Phone Number [facility] [address] [place] [phone] * TSH with Reflex to Free T4 (01/23/2025 4:20 PM EDT) TSH reflex Free T4 2.32 0.32 - 4.0 uIU/mL [facility] Blood 01/23/2025 4:20 PM EDT 01/23/2025 4:20 PM EDT Daniela Salmon MD LAB BLOOD ORDERABLES Final Resul t [facility] [address] [place] [phone] * Iron And Total Iron Binding Capacity (01/23/2025 4:20 PM EDT) Iron 59 30 - 160 mcg/dL [facility] Total Iron Binding Capacity 230 228 - 428 mcg/dL [facility] Percent Iron Saturation 26 15 - 50 % [facility] Unsaturated Iron Binding 171 ug/dL [facility] Blood Venous blood specimen / Unknown 01/23/2025 4:20 PM EDT 01/23/2025 4:20 PM EDT Daniela Salmon MD LAB BLOOD ORDERABLES Final Resul t Performing Organization Address [facility]/ZIP Co de Phone Number [facility] [address] [place] [phone] * Magnesium (01/23/2025 4:20 PM EDT) Magnesium 2.1 1.6 - 2.6 mg/dL [facility] Blood Venous blood specimen / Unknown 01/23/2025 4:20 PM EDT 01/23/2025 4:20 PM EDT us Daniela Salmon MD LAB BLOOD ORDERABLES Final Resul t Performing Organization Address City/[facility]/ZIP Co de Phone Number [facility] [address] [place] [phone] * Ferritin (01/23/2025 4:20 PM EDT) Ferritin 68 10 - 250 ng/mL [facility] Blood Venous blood specimen / Unknown 01/23/2025 4:20 PM EDT 01/23/2025 4:20 PM EDT Daniela Salmon MD LAB BLOOD ORDERABLES Final Resul t Performing Organization Address City/[facility]/ZIP Co de Phone Number [facility] [address] [place] [phone] * Hepatic Function Panel (01/23/2025 4:20 PM EDT) [facility] Bilirubin, Total 0.2 0.0 - 1.0 mg/dL [facility] Bilirubin, Direct <0.2 0.0 - 0.5 mg/dL [facility] Aspartate Amino Transferase 18 5 - 31 U/L [facility] Alanine Aminotransferase 19 0 - 31 U/L [facility] Total Protein 7.4 6.5 - 8.0 g/dL [facility] Albumin Level 4.5 3.5 - 5.0 g/dL [facility] Alkaline Phosphatase 83 39 - 117 U/L [facility] Blood Venous blood specimen / Unknown 01/23/2025 4:20 PM EDT 01/23/2025 4:20 PM EDT us Daniela Salmon MD LAB BLOOD ORDERABLES Final Resul t [facility] [address] [place] [phone] * (ABNORMAL) Basic Metabolic Panel (01/23/2025 4:20 PM EDT) [facility] Sodium 142 135 - 145 mmol/L [facility] Potassium 4.1 3.3 - 5.1 mmol/L [facility] Chloride 107 96 - 108 mmol/L [facility] Carbon Dioxide 29 22 - 29 mmol/L [facility] Anion Gap 10(L) 12 - 20 [facility] Urea Nitrogen (BUN) 11 9 - 16 mg/dL [facility] Creatinine, Serum 0.81 0.5 - 1.4 mg/dL [facility] Estimated Glomerular Filt Rate >60 [facility] Comment:Chronic Kidney Disea se: Estimated GFR < 60 mL/min/[id number] Kidney Disease: Estimated GFR < 15 mL/min/1.73m2 Glucose 79 60 - 115 mg/dL [facility] Calcium 9.5 8.4 - 10.2 mg/dL [facility] Blood Venous blood specimen / Unknown 01/23/2025 4:20 PM EDT 01/23/2025 4:20 PM EDT Daniela Salmon MD LAB BLOOD ORDERABLES Final Resul t [facility] [address] [place] [phone] * BI Mammogram Screen w/ Ahmet w/ Implants Maynor (01/23/2025 3:53 PM EDT) Anatomical Region Laterality Modality Mammography 01/23/2025 3:53 PM EDT Narrative 01/29/2025 5:42 PM EDT [facility] [address] [place] [address] Mammography Report Signed Patient: Yanely Hebert MR#: [id number] : 1980 Acct:[id number] Age/Sex: 44 / F ADM Date: 01/23/25 Loc: [facility] Attending Dr: Daniela Salmon MD Ordering Physician: Daniela Salmon MD Results: 2Benign Date of Service: 01/23/25 Follow Up: 1 Year From [facility] Mammogram Procedure(s): MM tomosynthesis screen imp BI Accession Number(s): [id number] cc: Daniela Salmon MD Reason For Exam: SCREENING EXAMINATION: MM SCREENING DIGITAL BREAST TOMOSYNTHESIS, BILATERAL CLINICAL INFORMATION: Screening. Asymptomatic. COMPARISON: Mammography: Comparison is made with relevant avialable priors. TECHNIQUE: Digital mammography is performed in craniocaudal and mediolateral oblique views along with computer-aided detection (CAD). Digital breast tomosynthesis is performed in implant-displaced craniocaudal and implant-displaced mediolateral oblique views along with computer-aided detection (CAD). FINDINGS: There are scattered areas of fibroglandular density. Bilateral retropectoral silicone implants are stable appearing. There are no significant masses, abnormal calcifications, or other abnormalities. MM/MM tomosynthesis screen imp BI IMPRESSION: There are no significant changes from prior study. ASSESSMENT: BI-RADS Category 2: Benign RECOMMENDATION: Routine annual mammography screening. 1 year F/U This patient's information was entered into a reminder system with a target due date for their next mammogram. Electronically signed by: Alina Pryor DO 01/29/2025 05:39 PM EDT RP Dictated By: Alina Pryor DO Signed By: <Electronically signed by Alina Pryor DO in OV> 01/29/25 1739 DD/ 1553 TD/TT: 01/23/25 1600 Warranty Coordinator: Procedure Note Donotuseinterpreter, Image - [facility] [address] [place] [address] Mammography Report Signed Patient: Latricia Hebert#: [id number] : 1980Acct:[id number] Age/Sex: 44 / FADM Date: 01/23/25 Loc: [facility] Attending Dr: Daniela Salmon MD Ordering Physician: Daniela Salmon MDResults: 2Benign Date of Service: 01/23/25Follow Up: 1 Year From [facility] Mammogram Procedure(s): MM tomosynthesis screen imp BI Accession Number(s): [id number] cc: Daniela Salmon MD Reason For Exam: SCREENING EXAMINATION: MM SCREENING DIGITAL BREAST TOMOSYNTHESIS, BILATERAL CLINICAL INFORMATION: Screening. Asymptomatic. COMPARISON: Mammography: Comparison is made with relevant avialable priors. TECHNIQUE: Digital mammography is performed in craniocaudal and mediolateral oblique views along with computer-aided detection (CAD). Digital breast tomosynthesis is performed in implant-displaced craniocaudal and implant-displaced mediolateral oblique views along with computer-aided detection (CAD). FINDINGS: There are scattered areas of fibroglandular density. Bilateral retropectoral silicone implants are stable appearing. There are no significant masses, abnormal calcifications, or other abnormalities. MM/MM tomosynthesis screen imp BI IMPRESSION: There are no significant changes from prior study. ASSESSMENT: BI-RADS Category 2: Benign RECOMMENDATION: Routine annual mammography screening. 1 year F/U This patient's information was entered into a reminder system with a target due date for their next mammogram. Electronically signed by: Alina Pryor DO 01/29/2025 05:39 PM EDT RP Dictated By: Alina Pryor DO Signed By: <Electronically signed by Alina Pryor DO in OV> 01/29/25 1739 DD/ 1553 TD/TT: 01/23/25 1600 Warranty Coordinator: us Daniela Salmon MD IMG BI PROCEDURES Final Result * (ABNORMAL) Lipid Panel, Standard (05/13/2024 9:48 AM EST) Triglycerides 107 <150 mg/dL [facility] Comment:Desirable Triglyceri de: less than 150 mg/dLBorderline High Triglyceride 150-199 mg/dLHigh Triglyceride: 200-499 mg/dLVery High Triglyceride: greater than or equal to 5OO mg/dL Cholesterol 182 <200 mg/dL [facility] Comment:Desirable Cholestero l: less than 200 mg/dLBorderline High Cholesterol: 200-239 mg/dLHigh Cholesterol: greater than 239 mg/dL LDL Cholesterol Calculated 121(H) <100 mg/dL [facility] Comment:Desirable LDL: less than 100 mg/dLNear Optimal/Above Optimal LDL: 110- 129 mg/dLBorderline High LDL: 130-159 mg/dLHigh LDL: 160-189 mg/dLVery High LDL: greater than or equal to 190 mg/dL HDL Cholesterol 40(L) >40 mg/dL [facility] Comment:Desirable HDL: great er than 40 mg/dL Note: This HDL assay may give artificially low results in patients with liver disease. 05/13/2024 9:48 AM EST 05/13/2024 9:48 AM EST us Daniela Salmon MD LAB BLOOD ORDERABLES Final Resul t [facility] [address] [place] [phone] * Colonoscopy (05/05/2023) [facility] Colonoscopy Normal Normal Historical Provider HEALTH MAINTENANCE Final Result * HEPATITIS C AB W/REFL TO HCV RNA, QN, PCR (11/19/2020 11:52 AM EDT) [facility] HEPATITIS C ANTIBODY NON-REACT CHELSIE NON-REACT CHELSIE [facility] INDEX 0.02 <1.00 [facility] Comment: HCV antibody was non-reactive. There is no laboratory evidence of HCV infection. In most cases, no further action is required. However, if recent HCV exposure is suspected, a test for HCV RNA (test code 89279) is suggested. For additional information please refer to http://education.B[employer]ovillage/faq/JNB62b3 (This link is being provided for informational/ educational purposes only.) 11/19/2020 11:5 2 AM EDT us Daniela Salmon MD HISTORICAL/NON ORDERABLE LABS Fi nal Result [facility] [address] * HIV 1/2 ANTIGEN/ANTIBODY,FOURTH GENERATION W/RFL (11/19/2020 11:52 AM EDT) [facility] HIV-1/2 ANTIGEN AND ANTIBODIES, 4TH GENERATION W/ REFLEX NON-REACT CHELSIE NON-REACT CHELSIE [facility] Comment: HIV-1 antigen and HIV-1/HIV-2 [...] purpose. For additional information please refer to http://education.Lovelogica.Gridium/faq/CQC901 (This link is being provided for informational/ educational purposes only.) The performance of this assay has not been clinically validated in patients less than 2 years old. 11/19/2020 11:5 2 AM EDT Daniela Salmon MD LAB BLOOD ORDERABLES Final Resul t [facility] [address] * Pap Smear (03/27/2020) Pap Negative for intraephithelial lesion or malignancy Negative for intraephithelial lesion or malignancy, Other HPV Undetected Undetected, Indeterminate, Quantitative, Not Detected Historical Provider HEALTH MAINTENANCE Final Result from Last 3 Months or Most Recently Relevant to Health Maintenance Insurance [facility] Care Teams Display Maker Relationship Specialty Start Date End Date Daniela Salmon MD [address] [place] [address] PCP - General Family Medicine 06/19/13
--- OUTSIDE RECORDS SUMMARY | 2025-03-19 14:04 | XMS_ITS | Encounter Summary ---
Author Organization [employer] Address [address] 7t [place] [address] Care Team Providers Care Unit Aide Name Role Phone Daniela Salmon MD Primary Care Provider [phone] Encounter Details Date Type Department Care Team (Late st Contact Info) Description 04/29/2022 Orders Only [facility] 230 [place], [place] [phone] Daniela Salmon MD [address] [place], [place] [phone] Iron deficiency (Primary Dx) Social History Tobacco [...] mo. If pt prefers to be evaluatedby stockroom clerk, I will refer, but I cannot guarantee [...] PM EST Narrative 05/25/2022 1:48 PM EST [place] [address] Ultrasound Report Signed Patient: Yanely Hebert MR#: [id number] : 1980 Acct:[id number] Age/Sex: 42 / F ADM Date: 05/22/22 Loc: HO.US Attending Dr: Daniela Salmon MD Ordering Physician: Daniela Salmon MD Date of Service: 05/22/22 Procedure(s): US pelvic and transvaginal Accession Number(s): [id number] cc: Daniela Salmon MD EXAMINATION: US PELVIS [...] in OV> 05/25/22 1345 DD/ 1522 TD/TT: Surveyor Helper Rod: [facility] Procedure Note Donotuseinterpreter, Image - 05/25/[address] [address] Ultrasound Report Signed Patient: Latricia Hebert#: [id number] : 1980Acct:[id number] Age/Sex: 42 / FADM Date: 01/27/23 Loc: HO.US Attending Dr: Daniela Salmon MD Ordering Physician: Daniela Salmon MD Date of Service: 05/22/22 Procedure(s): US pelvic and transvaginal Accession Number(s): [id number] cc: Daniela Salmon MD EXAMINATION: US PELVIS [...] Complex cyst left ovary. Dictated By: Mauri Leivn MD Signed By: <Electronically signed by Mauri Levin MD in OV> 05/25/22 1345 DD/ 1522 TD/TT: Surveyor Helper Rod: TRAVIS us [facility] External Provider IMG US PROCEDURES Final Result documented in this encounter Visit Diagnoses Diagnosis Iron deficiency- Primary Disorders of iron metabolism documented in this encounter Care Teams Unit Aide Relationship Specialty Start Date End Date Daniela Salmon MD [address] [place] [address] PCP - General Family Medicine 06/19/13 documented as of this encounter
--- OUTSIDE RECORDS SUMMARY | 2025-03-19 14:04 | XMS_ITS | Encounter Summary ---
Author Organization [employer] Address [address] 7[address] [place] [address] Care Team Providers Care Fur Finisher Name Role Phone Daniela Salmon MD Primary Care Provider [phone] Encounter Details Date Type Department Care Team (Latest Contact Info) Description 03/19/2025 Travel Social History Tobacco Use Types Packs/Day Years [...] as of this encounter Plan of Treatment Not on file documented as of this encounter Visit Diagnoses Not on filedocumented in this encounter Additional Health Concerns Assessment Noted Time PHQ-9 Depression Total Score: 21 025 4:08 PM EDT documented as of this encounter Care Teams Fur Finisher Relationship Specialty Start Date End Date Daniela Salmon MD [address] [place] [address] PCP - General Family Medicine 06/19/13 documented as of this encounter
--- OUTSIDE RECORDS SUMMARY | 2025-03-19 14:04 | XMS_ITS | Encounter Summary ---
Author Organization [employer] Address [address] 7t [place] [address] Care Team Providers Care K9 Handler Name Role Phone Daniela Salmon MD Primary Care Provider [phone] Encounter Details Date Type Department Care Team (Late st Contact Info) Description 03/16/2025 Telephone [facility] 230 [place] [address] Cnadace Martin [place] Social History Tobacco Use Types Packs/Day Years [...] AM EDT documented as of this encounter Miscellaneous Notes * Telephone Encounter - Candace Martin MA - 03/16/2025 9:44 AM EST Chart Prep Labs: done Images: done Referrals: closed Vaccines due: Covid, Flu, and PCV20 Screenings: not applicable Overdue care gaps: Not applicable documented in this encounter Plan of Treatment Not on file documented as of this encounter Visit Diagnoses Not on filedocumented in this encounter Additional Health Concerns Assessment Noted Time PHQ-9 Depression Total Score: 21 025 4:08 PM EDT documented as of this encounter Care Teams K9 Handler Relationship Specialty Start Date End Date Daniela Salmon MD 230 [place] [address] PCP - General Family Medicine 06/19/13 documented as of this encounter
--- OUTSIDE RECORDS SUMMARY | 2025-03-19 14:04 | XMS_ITS | Encounter Summary ---
Author Organization [employer] Address [address] 7t [place] [address] Care Team Providers Care Cashiers Bussers Food Runners Name Role Phone Daniela Salmon MD Primary Care Provider [phone] Reason for Referral * Neurology (Routine) - Closed Specialty Diagnoses / Procedures Referred By Contac t Referred To Contact Diagnoses Numbness of right foot Right leg numbness Procedures EMG Daniela Salmon MD [address] [place] [address] Phone: tel: fax: [address] [address] Phone: tel: fax: Referral ID Status Reason Start Date Expiration Date Visits Re quested Visits Authorized [id number] Closed 09/07/2024 09/07/2025 1 1 * Neurology (Routine) - Closed Specialty Diagnoses / Procedures Referred By Contac t Referred To Contact Diagnoses Numbness of right foot Right leg numbness Procedures Nerve conduction test Daniela Salmon MD [address] [place] [address] Phone: tel: fax: [address] [address] Phone: tel: fax: Referral ID Status Reason Start Date Expiration Date Visits Re quested Visits Authorized [id number] Closed 09/07/2024 09/07/2025 1 1 Encounter Details Date Type Department Care Team (Late st Contact Info) Description 09/07/[address] [facility] [address] [place] [address] Daniela Salmon MD [address] [place] [address] Numbness of right foot (Primary Dx); Right leg numbness Social History Tobacco Use Types Packs/Day Years Used Date Smoking Tobacco: Every Day Cigarettes Passive Smoke Exposure: Current Smokeless Tobacco: Never Depression Answer Date Recorded Patient Health Questionnaire-9 Score 0 12/07/2022 Housing Stability Answer Date Recorded What is your housing situation today? I have jacksongary pelayo 07/23/[address] you [...] as of this encounter Plan of Treatment Scheduled Orders [...] documented as of this encounter Care Teams Cashiers Bussers Food Runners Relationship Specialty Start Date End Date Daniela Salmon MD [address] [place] [address] PCP - General Family Medicine 06/19/13 documented as of this encounter
--- OUTSIDE RECORDS SUMMARY | 2025-03-19 14:04 | XMS_ITS | Encounter Summary ---
Author Organization [employer] Address [address] 7[address] [place] [address] Care Team Providers Care Crusher Name Role Phone Daniela Salmon MD Primary Care Provider Encounter Details Date Type Department Care Team (Late st Contact Info) Description 04/28/2022 Abstract [facility] 230 [place], [place] [phone] Daniela Salmon MD 230 [place], [place] [phone] Social History Tobacco Use Types Packs/Day Years [...] on filedocumented in this encounter Care Teams Crusher Relationship Specialty Start Date End Date Daniela Salmon MD [address] [place] [address] PCP - General Family Medicine 06/19/13 documented as of this encounter
--- OUTSIDE RECORDS SUMMARY | 2025-03-19 14:04 | XMS_ITS | Encounter Summary ---
Author Organization [employer] Address [address] 7[address] [place] [address] Care Team Providers Care Raw Cheese Worker Name Role Phone Daniela Salmon MD Primary Care Provider Reason for Referral * Consultation (Routine) - Closed Specialty Diagnoses / Procedures Referred By Contterrie t Referred To Contact Nutrition - Weight Diagnoses Obesity (BMI 30.0-34.9) Daniela Salmon MD [address] [place] [address] Phone: tel: fax: Referral ID Status Reason Start Date Expiration Date V isits Requested Visits Authorized [id number] Closed Specialty Services Required 02/16/2024 02/15/2025 12 12 Encounter Details Date Type Department Care Team (Late st Contact Info) Description 02/11/2024 Orders Only [facility] 230 [place] [address] Daniela Salmon MD [address] [place] [address] Obesity (BMI 30.0-34.9) (Primary Dx) [...] on file documented as of this encounter Procedures Procedure [...] documented as of this encounter Care Teams Raw Cheese Worker Relationship Specialty Start Date End Date Daniela Salmon MD [address] [place] [address] PCP - General Family Medicine 06/19/13 documented as of this encounter
[2025-03-19 14:57] LABS: Folate 3.5 ng/mL (> or = 4.0); Vitamin B12 276 pg/mL (200-900)
[2025-03-19 15:52] LABS: Anion Gap 11 (12-20); Blood Urea Nitrogen 8 mg/dL (9-16); Calcium 9.2 mg/dL (8.4-10.2); Carbon Dioxide 25 mmol/L (22-29); Chloride 108 mmol/L (96-108); Estimated Glomerular Filt Rate > 60; Ferritin 37 ng/mL (10-250); Iron 102 mcg/dL (30-160); Magnesium 2.1 mg/dL (1.6-2.6); Percent Iron Saturation 41 % (15-50); Potassium 4.1 mmol/L (3.3-5.1); Sodium 140 mmol/L (135-145); Total Iron Binding Capacity 248 mcg/dL (228-428); Unsaturated Iron Binding 146 ug/dL
[2025-03-20 04:38] LABS: Syphilis Screen Nonreactive (Nonreactive)
== END 2025-03-19 10:58 | disposition home or self-care (01) ==
LOC: HO.HHCL 10:57
PROVIDERS: PCP Family Medicine; Visit Provider Family Medicine
DX: Z20.2 Contact with and (suspected) exposure to infections with a predominantly sexual mode of transmission (principal); D64.9 Anemia, unspecified; R25.2 Cramp and spasm; E55.9 Vitamin D deficiency, unspecified; R20.0 Anesthesia of skin
CPT/HCPCS: 36415; 80048; 82306; 82607; 82728; 82746; 83540; 83735; 84443; 85025; 85045; 86780

== ENCOUNTER 2025-04-25 13:20 | Outpatient (AMB) | payer BC, SELFPAY ==
--- OUTSIDE RECORDS SUMMARY | 2025-03-21 10:15 | XMS_ITS ---
Author Organization [facility] [address] Address [address] [place] [address] Care Team Providers Care Slab Tripper Name Role Phone Daniela Salmon Primary Care Provider ANNALEE Watt Unavailable [phone] Encounters Encounter Location Date Provider Diagnosis [facility] [address] [place] [address] 03/21/2025 ANNALEE BRITTON Plan Of Treatment Next Appt Details Provider Name:ANNALEE Ramos, 05/10/2025 11:00:00 AM, [address], [place], [address], Progress Notes * Porsche PADRONaDOB:1979 (45 yo F)Acc No.[id number]:03/21/2025 Patient: Yanely Fields Provider: Ibeth BRITTON PA-C :1980 A ge:45 Y S ex:Female Date:03/21/2025 Address:[address], [place], [place] Pcp:Daniela Salmon * Electronic signature of SAMIRA BRITTON PA-C on 04/25/2025 at 02:46 PM EST Sign off status: Pending * Provider: Ibeth BRITTON PA-C Date: 05/21/2024 Generated for Margaret spencer/Gualberto/eTransmitting on: 02:46 PM EST
--- NOTE | 2025-04-25 13:33 | MHC.OFFVIS ---
Intake Visit Reasons: ENP neuropathy rt lower extrem Allergies Iodinated Contrast Media Allergy (Verified 09/30/24 19:36) Anaphylaxis omeprazole (From Prilosec) Allergy (Verified 09/30/24 19:36) Redness of Skin seafood Allergy (Verified 09/30/24 19:36) Anaphylaxis HPI Comments Details: The patient is a 45 year old female presenting with right leg and foot complaints that began a few months to a year ago. Her symptoms initially started with a painless, involuntary upward movement of her right toe while resting, and a couple of weeks later, she started experiencing cramps in her right calf at night. Following the initial symptoms, she developed painless involuntary movements of her right foot, numbness, and a sensation of heaviness, which caused her to stomp when walking. She describes her foot as feeling rubbery to the touch. She also reports pain in the coccyx area with prolonged sitting but denies back pain or issues with bladder control. Her primary doctor had previously dismissed the symptoms as possibly related to potassium levels. She was seen by a dedicated regional driver and had a recent EMG/nerve conduction study, which showed mild abnormalities, leading to a diagnosis of tarsal tunnel syndrome on the right. The patient has no history of diabetes and does not drink alcohol. Recent lab work showed a Vitamin B12 level of 276, normal liver enzymes, normal metabolic profile, normal CBC, and fasting glucose of 81 and 79. 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 [facility] Medical History Delivery with history of Anemia Hernia Surgical History Hx of breast reduction, elective S/P laparoscopic sleeve gastrectomy History of abdominoplasty Tubal ligation status Bariatric surgery status Family History Mother HTN (hypertension) High cholesterol Social History Household Members: Family Alcohol intake: never Patient Tobacco Use Status: Current everyday Tobacco user Tobacco use type: Cigarette Cigarette Packs Per Day: 1 Cigarettes Per Day: 10 Years Smoked: 30yrs Review of Systems Narrative Constitutional:?No fever, chills, fatigue, weight loss, or night sweats. HEENT:? Complain of blurred vision and wears glasses Cardiovascular:? Complain of syncope Respiratory:?No cough, shortness of breath, wheezing, or hemoptysis. Gastrointestinal:?No nausea, vomiting, abdominal pain, diarrhea, or constipation. Genitourinary:?No dysuria, frequency, incontinence, or hematuria. Musculoskeletal:? Complain of right leg cramping Neurological:? Complain of difficulty walking, confusion, weakness, memory problems, numbness and tingling, headaches, dizziness, and generalized weakness. Psychiatric:? Complain of anxiety and depression Endocrine:? Complain of cold intolerance Hematologic/Lymphatic:?No easy bruising, bleeding, or lymphadenopathy. Integumentary (Skin):?No rash, lesions, itching, or color changes. Allergic/Immunologic:?No seasonal allergies, hives, or recurrent infections. Physical Exam Neuro Other: Mental Status: Alert and oriented to person, place, and time. Normal attention. Normal spontaneous speech, fluency, and comprehension. No obvious issues with mood and memory. Affect is appropriate. Cranial Nerves: CN II: Visual palumbo full to confrontation, visual acuity intact. CN III, IV, : Pupils equal, round, reactive to light and accommodation. Extraocular movements are normal. CN V: Facial sensation is normal. CN VII: Facial movements symmetrical. CN VIII: Hearing intact to bedside conversation is normal. CN IX, X: Palate elevates symmetrically. CN XI: Shoulder shrug and head turn symmetrical. CN XII: Tongue midline without atrophy or fasciculations. Motor: Mild diffuse muscle atrophy in feet probably also in for legs. Muscle mass was somewhat less developed in for legs compared to thigh area. No fasciculations noted. Reflexes: Deep tendon reflexes are trace to absent in knees and absent in ankles with flexor plantars. Coordination: [id number] is okay. Gait and Station: She was able to stand on heels and toes with slight difficulty. Sensory: Vibration, joint position sensations were absent in toes. Cold sensation was decreased in stocking distribution. Extrapyramidal: Full facial expressions and blinking. No rigidity. Movements are appropriate with no tremor or abnormality. Speech: Normal; no dysarthria or tremor. Assessment & Plan Assessment & Plan (1) Peripheral neuropathy: Comment: EMG/NCS R leg at [facility] in September 2024: Mild axonal SM PN Code(s): G62.9 - Polyneuropathy, unspecified Category: Medical Qualifiers: Peripheral neuropathy type: polyneuropathy, unspecified Qualified Code(s): G62.9 - Polyneuropathy, unspecified Plan Impression: Chronic peripheral neuropathy of unknown etiology Recommendations: EMG nerve conduction study for evaluation We discussed that common causes like diabetes and alcohol do not apply in her case. I noted that the physical signs indicate the problem has been ongoing for a long time. Although a recent EMG was reported as mild, I explained that my clinical exam suggests the condition is more severe. Therefore, I recommended repeating the EMG and nerve conduction study on both legs for a more accurate assessment. Orders: Orders NE nerve conduction velocity Today G62.9 - Polyneuropathy, unspecified NE electromyogram (EMG) Today G62.9 - Polyneuropathy, unspecified Coding Level of Care Code New Pt Level 4 (25496) Diagnoses Peripheral polyneuropathy G62.9 Peripheral neuropathy type: polyneuropathy, unspecified
--- OUTSIDE RECORDS SUMMARY | 2025-04-25 14:46 | XMS_ITS | Encounter Summary ---
Author Organization [employer] Address [address]t [place] [address] Care Team Providers Care Manager Performance Name Role Phone Daniela Salmon MD Primary Care Provider [phone] Encounter Details Date Type Department Care Team (Late st Contact Info) Description 04/28/2022 Abstract [facility] 230 [place], [place] [phone] Daniela Salmon MD [address] [place] [address] Social History Tobacco Use Types Packs/Day Years [...] PM EST documented as of this encounter Plan of Treatment Not on file documented as of this encounter Visit Diagnoses Not on filedocumented in this encounter Care Teams Manager Performance Relationship Specialty Start Date End Date Daniela Salmon MD [address] [place] [phone] PCP - General Family Medicine 06/19/13 documented as of this encounter
--- OUTSIDE RECORDS SUMMARY | 2025-04-25 14:46 | XMS_ITS | Encounter Summary ---
Author Organization [employer] Address [address] [place] [address] Care Team Providers Care Marketing Operations Coordinator Name Role Phone Daniela Salmon MD Primary Care Provider [phone] Encounter Details Date Type Department Care Team (Late st Contact Info) Description 04/29/2022 Orders Only [facility] 230 [place], [place] [phone] Daniela Salmon MD [address] [place], [place] [phone] Iron deficiency (Primary Dx) Social History Tobacco [...] mo. If pt prefers to be evaluatedby pharmacy operations coordinator, I will refer, but I cannot guarantee [...] PM EST Narrative 05/25/2022 1:48 PM EST [place] [address] Ultrasound Report Signed Patient: Yanely Hebert MR#: [id number] : 1980 Acct:[id number] Age/Sex: 42 / F ADM Date: 05/22/22 Loc: HO.US Attending Dr: Daniela Salmon MD Ordering Physician: Daniela Salmon MD Date of Service: 05/22/22 Procedure(s): US pelvic and transvaginal Accession Number(s): [id number] cc: Daniela Salmon MD EXAMINATION: US PELVIS [...] in OV> 05/25/22 1345 DD/ 1522 TD/TT: Brass Polisher: [facility] Procedure Note Donotuseinterpreter, Image - 05/25/[address] [address] Ultrasound Report Signed Patient: Latricia Hebert#: [id number] : 1980Acct:[id number] Age/Sex: 42 / FADM Date: 01/27/23 Loc: HO.US Attending Dr: Daniela Salmon MD Ordering Physician: Daniela Salmon MD Date of Service: 05/22/22 Procedure(s): US pelvic and transvaginal Accession Number(s): [id number] cc: Daniela Salmon MD EXAMINATION: US PELVIS [...] in OV> 05/25/22 1345 DD/ 1522 TD/TT: Brass Polisher: TRAVIS us [facility] External Provider IMG US PROCEDURES Final Result documented in this encounter Visit Diagnoses Diagnosis Iron deficiency- Primary Disorders of iron metabolism documented in this encounter Care Teams Marketing Operations Coordinator Relationship Specialty Start Date End Date Daniela Salmon MD [address] [place] [address] PCP - General Family Medicine 06/19/13 documented as of this encounter
--- OUTSIDE RECORDS SUMMARY | 2025-04-25 14:46 | XMS_ITS | Encounter Summary ---
Author Organization [employer] Address [address] [place] [address] Care Team Providers Care Apprentice Funeral Director Name Role Phone Daniela Salmon MD Primary Care Provider Reason for Referral * Neurology (Routine) - Closed Specialty Diagnoses / Procedures Referred By Contac t Referred To Contact Diagnoses Numbness of right foot Right leg numbness Procedures EMG Daniela Salmon MD [address] [place] [address] Phone: tel: fax: [address] [address] Phone: tel: fax: Referral ID Status Reason Start Date Expiration Date Visits Re quested Visits Authorized [id number] Closed 09/07/2024 09/07/2025 1 1 * Neurology (Routine) - Closed Specialty Diagnoses / Procedures Referred By Contac t Referred To Contact Diagnoses Numbness of right foot Right leg numbness Procedures Nerve conduction test Daniela Salmon MD [address] [place] [address] Phone: tel: fax: [address] [address] Phone: tel: fax: Referral ID Status Reason Start Date Expiration Date Visits Re quested Visits Authorized [id number] Closed 09/07/2024 09/07/2025 1 1 Encounter Details Date Type Department Care Team (Late st Contact Info) Description 09/07/2024 Orders Only [facility] [address] [place] [address] Daniela Salmon MD [address] [place] [address] Numbness of right foot (Primary Dx); Right [...] documented as of this encounter Care Teams Apprentice Funeral Director Relationship Specialty Start Date End Date Daniela Salmon MD [address] [place] [address] PCP - General Family Medicine 06/19/13 documented as of this encounter
--- OUTSIDE RECORDS SUMMARY | 2025-04-25 14:46 | XMS_ITS | Encounter Summary ---
Author Organization [employer] Address [address] [place] [address] Care Team Providers Care Air Brakes Inspector Name Role Phone Daniela Salmon MD Primary Care Provider [phone] Encounter Details Date Type Department Care Team ([facility] st Contact Info) Description 03/21/2025 Results Follow-Up [facility] [address] [place], [place] [phone] Daniela Salmon MD [address] [place] [address] CBC auto differential, Ferritin, Iron And Total Iron Binding Capacity, Additional followed-up results: 3 Social History Tobacco Use Types Packs/Day Years [...] documented as of this encounter Care Teams Air Brakes Inspector Relationship Specialty Start Date End Date Daniela Salmon MD [address] [place] [address] PCP - General Family Medicine 06/19/13 documented as of this encounter
--- OUTSIDE RECORDS SUMMARY | 2025-04-25 14:46 | XMS_ITS | Encounter Summary ---
Author Organization [employer] Address [address] [place] [address] Care Team Providers Care Shingle Trimmer Name Role Phone Daniela Salmon MD Primary Care Provider [phone] Reason for Referral * Consultation (Routine) - Closed Specialty Diagnoses / Procedures Referred By Contterrie t Referred To Contact Nutrition - Weight Diagnoses Obesity (BMI 30.0-34.9) Daniela Salmon MD [address] [place] [address] Phone: tel: fax: Referral ID Status Reason Start Date Expiration Date V isits Requested Visits Authorized [id number] Closed Specialty Services Required 02/16/2024 02/15/2025 12 12 Encounter Details Date Type Department Care Team (Late st Contact Info) Description 02/11/2024 Orders Only [facility] [address] [place] [address] Daniela Salmon MD [address] [place] [address] Obesity (BMI 30.0-34.9) (Primary Dx) [...] documented as of this encounter Care Teams Shingle Trimmer Relationship Specialty Start Date End Date Daniela Salmon MD [address] [place] [address] PCP - General Family Medicine 06/19/13 documented as of this encounter
--- OUTSIDE RECORDS SUMMARY | 2025-04-25 14:46 | XMS_ITS | Encounter Summary ---
Author Organization [employer] Address [address] [place] [address] Care Team Providers Care Audio Visual Equipment Rental Clerk Name Role Phone Daniela Salmon MD Primary Care Provider [phone] Encounter Details Date Type Department Care Team ([facility] st Contact Info) Description 03/21/2025 Orders Only [facility] MEDICINE [address] [place], [place] [phone] Daniela Salmon MD [address] [place], [place] [phone] Social History Tobacco Use Types Packs/Day Years [...] documented as of this encounter Care Teams Audio Visual Equipment Rental Clerk Relationship Specialty Start Date End Date Daniela Salmon MD [address] [place] [phone] PCP - General Family Medicine 06/19/13 documented as of this encounter
--- OUTSIDE RECORDS SUMMARY | 2025-04-25 14:46 | XMS_ITS | Clinical Summary ---
Author Organization [employer] Address [address] [place] [address] Care Team Providers Care Joss House Keeper Name Role Phone Daniela Salmon MD Primary Care Provider [phone] Allergies Active Allergy Reactions Criticality Noted Date Comments [place]-Containing Products Hives 04/28/2022 Egg Protein-Containing Drug Products 06/07/2017 Other reaction(s): Hives / Skin Rash Iodine Omeprazole Shortness of breath High 06/07/2017 Other reaction(s): Trouble Breathing , Trouble Breathing Shellfish Allergy 04/06/2022 Medications terbinafine (LamISIL) 250 MG tablet Take 1 tablet by mouth Once per day. 10/25/2024 Active cholecalciferol (Vitamin D-3) 25 MCG (1000 UT) tablet Take 1 tablet (25 mcg) by mouth Once per day. 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 - Seen by supervisor telephone information on 10/24/2024. Diagnosis tarsal tunnel syndrome and lumbar radiculopathy Assessment & Plan (09/14/2024 10:45 AM EDT): - Evaluate with nerve conduction test - Will check electrolytes and vitamin - Recommended to try pickle juice - Will refer to supervisor telephone information - Consider evaluation for circulation if all of the tests are non-diagnostic Irregular menstruation 09/01/2022 Assessment & Plan (12/13/2022 7:02 AM EDT): US in Apr 2022 showed ovarian cyst and borderline thickness of endometrial stripe Anticipating evaluation by WOOD HEEL FITTER MACHINE soon Assessment & Plan (09/07/2022 7:32 AM EDT): US in Apr 2022 showed ovarian cyst Has upcoming appointment with WOOD HEEL FITTER MACHINE Anxiety disorder 09/01/2022 Assessment & Plan (03/21/2025 11:42 PM EST): - KENIA-7 score 15 on 12/12/2024 -Previously on Wellbutrin 100 mg BID -patient has tried counseling in the past and is hesitant to try counseling at this time. She will let us know if she needs counselor in future. -able to contract her safety Assessment & Plan (12/22/2024 10:58 AM EDT): [...] 6:22 AM EST): -During last of twins [id number] - section on 08/21/20, no complication -continue monitoring BP Migraine with aura and witho ut status migrainosus, not intractable 05/01/2022 Assessment & Plan (03/21/2025 11:43 PM EST): -Pt dislikes medication -Evaluated by neurologist in 2016, recommended gabapentin at that time. Pt did not take it and has not followed up. -Normal EEG in [address] in 2019 -Continue Excedrin migraine prn - Prescribed topiramate for prophylaxis; she is not taking currently - Prescribed sumatriptan for abortive medication; she is not taking currently - Referred to neurologist as requested Assessment & Plan (08/15/2023 6:16 PM EDT): [...] migraine prn Depression 04/28/2022 Assessment & Plan (03/21/2025 11:42 PM EST): - PHQ-9 score 21 on 12/02/2024 - Patient appears much better today - Previously on bupropion 100 mg BID -she was able to contract her safety today -she declines BHS Assessment & Plan (12/22/2024 10:58 AM EDT): [...] Bariatric surgery status 04/06/2022 Assessment & Plan (03/21/2025 11:40 PM EST): -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 ([facility]) -s/p abdominoplasty in June 2017 -Encourage to take vitamins -Avoid NSAIDs -She has tried GLP1RA , which she has sopped due to drastic weight loss -Patient knows that she needs to eat well-balanced diet as she sees RD at Wt management clinic -Wt is now stable; monitor closely Assessment & Plan (12/22/2024 10:57 AM EDT): -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 ([facility]) -s/p abdominoplasty in June 2017 -Encourage to take vitamins -Avoid NSAIDs -She has tried GLP1RA , which she has sopped due to drastic weight loss. Her weight is now below her goal weight Assessment & Plan (09/07/2022 7:31 AM EDT): -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 ([facility]) -s/p abdominoplasty in June 2017 -Encourage to take vitamins -Avoid NSAIDs Assessment & Plan (05/01/2022 6:35 AM EST): -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 ([facility]) -s/p abdominoplasty in June 2017 -Encourage to take vitamins -Avoid NSAIDs Ovarian cyst 10/09/2015 Assessment & Plan (12/13/2022 7:03 AM EDT): Pt had a recent US with WOOD HEEL FITTER MACHINE, and was told that a stable, benign cyst, which may have resolved. Has upcoming appointment with WOOD HEEL FITTER MACHINE Assessment & Plan (09/01/2022 4:55 PM EDT): Has upcoming appointment with WOOD HEEL FITTER MACHINE Kidney stone 10/09/2015 Steatosis of liver 10/09/2015 Assessment & Plan (05/01/2022 6:20 AM EST): -continue working on lifestyle modifications -periodic LFT monitoring Allergic rhinitis 04/11/2015 Tobacco use 07/05/2013 Assessment & Plan (03/21/2025 11:47 PM EST): -She has tried varenicline, nicotine replacement, and bupropionin the past -She was able to stop smoking for a while during last peripartum period, but restarted -Continue working on smoking cessation -She will need LDCT when she becomes 48 yo Assessment & Plan (12/22/2024 11:00 AM EDT): [...] Encounters Date Type Department Care Team Description 03/21/2025 Orders Only [facility] MEDICINE [address] [place] [id number] Daniela Salmon MD 03/21/2025 Results Follow-Up [facility] [address] [place] [id number] Daniela Salmon MD CBC auto differential, Ferritin, Iron And Total Iron Binding Capacity, Additional followed-up results: 3 03/19/2025 10:15 AM EST Office Visit [facility] [address] [place] [address] Daniela Salmon MD Current moderate episode of major depressive disorder, unspecified whether recurrent (CMS/HCC) (HCC) (Primary Dx); Tobacco use; Anemia, unspecified type; Anxiety disorder; Bariatric surgery status; Vitamin D deficiency; Migraine with aura and without status migrainosus, not intractable 03/19/2025 Travel 03/16/2025 Telephone [facility] [address] [place] [address] [phone] Candace Martin MA 01/26/2025 Results Follow-Up [facility] [address] [place] [phone] Daniela Salmon MD Ferritin, Iron And Total Iron Binding Capacity, Reticulocyte Count, Additional followed-up results: 8 01/23/2025 Orders Only [facility] [address] [place] [phone] Daniela Salmon MD from Last 3 Months [...] 1980 Sigmoidoscopy 1978 Family Planning (PISQ) 1993 Cervical Cancer Screening 03/27/2025 HPV/Cotest 03/27/2025 03/27/2020, [...] Completed 11/19/2020 Hepatitis C Screening Completed 11/19/2020 Influenza Vaccine Completed 01/24/2025 COVID-19 Vaccine Completed 03/19/2025, 06/2022, 12/10/2020, Additional [...] Procedure Name Priority Date/Time Associated Diagnosis Comments VITAMIN D,25-OH,TOTAL,IA Routine 03/19/2025 11:03 AM EST Vitamin D deficiency VITAMIN B12/FOLATE, SERUM PANEL Routine 03/19/2025 11:03 AM EST Anemia, unspecified type RETICULOCYTE COUNT Routine 03/19/2025 11 :03 AM EST Anemia, unspecified type IRON AND TOTAL IRON BINDING CAPACITY Routine 03/19/2025 11:03 AM EST Anemia, unspecified type FERRITIN Routine 03/19/2025 11:03 AM EST Anemia, unspecified type CBC WITH AUTO DIFFERENTIAL Routine 03/19/2025 11:03 AM EST Anemia, unspecified type MAGNESIUM Routine 03/19/2025 11:03 AM EST Leg cramp BASIC METABOLIC PANEL Routine 03/19/2025 11:03 AM EST Numbness of right foot Leg cramp SYPHILIS SCREEN Routine 03/19/2025 11:03 AM EST Numbness of right foot TSH W/REFLEX TO FT4 Routine 03/19/2025 1 1:03 AM EST Numbness of right foot Leg cramp VITAMIN D,25-OH,TOTAL,IA Routine 01/23/2025 4:20 PM EDT [...] PANEL, STANDARD Routine 05/13/2024 9:48 AM EST HM COLONOSCOPY Routine 05/05/2023 ZZZ HISTORICAL HEPATITIS C AB W/REFL TO HCV RNA, QN, PCR Routine 11/19/2020 11:52 AM EDT HIV 1/2 ANTIGEN/ANTIBODY, FOURTH GENERATION W/RFL Routine 11/19/2020 11:52 AM EDT HM PAP/HPV Routine 03/27/2020 from Last 3 Months or Most Recently Relevant to Health Maintenance Results * Syphilis Screen (03/19/2025 11:03 AM EST) Only the most recent of2 resultswithin the time period is included. Syphilis Screen Nonreactive Nonreactive [facility] Blood 03/19/2025 11:0 3 AM EST 03/19/2025 1:04 PM EST Daniela Salmon MD LAB BLOOD ORDERABLES Final Resul t Performing Organization Address City/[facility]/ZIP Co de Phone Number [facility] [address] [place] [phone] * (ABNORMAL) Vitamin D, 25-Hydroxy, Total, Immunoassay (03/19/2025 11:03 AM EST) Only the most recent of2 resultswithin the time period is included. Pathologist [facility] Vitamin D 25-OH Total 29.9(L) >30 ng/mL [facility] Comment: Health Based Reference Values*< 20 ng/mL [id number] ng/mL Insufficient> 30 ng/mL Sufficient*Ernesto TAPIA. N [...] LC-MS/MS. Blood Venous blood specimen / Unknown 03/19/2025 11:03 AM EST 03/19/2025 1:04 PM EST Daniela Salmon MD LAB BLOOD ORDERABLES Final Resul t [facility] [address] [place] [phone] * (ABNORMAL) Vitamin B12 (Cobalamin) and Folate Panel, Serum (03/19/2025 11:03 AM EST) Only the most recent of2 resultswithin the time period is included. Vitamin B12 276 200 - 900 pg/mL [facility] Comment:NORMAL 200-900 PG/ML INDETERMINATE 160-199 PG/ML DEFICIENT < 160 PG/ML Folate 3.5(L) > or = 4.0 ng/mL [facility] Comment:Reference Values:> o r = 4.0 ng/mL< 4.0 ng/mL suggests folate deficiency Methotrexate, aminopterin and folinic acid(leucovorin) are chemotherapeutic agents whose molecularstructures are similar to folate; therefore, the Architectfolate assay cannot be used for patients using these drugs. Blood 03/19/2025 11:0 3 AM EST 03/19/2025 1:04 PM EST us Daniela Salmon MD LAB BLOOD ORDERABLES Final Resul t Performing Organization Address City/[facility]/ZIP Co de Phone Number [facility] [address] [place] [phone] * TSH with Reflex to Free T4 (03/19/2025 11:03 AM EST) Only the most recent of2 resultswithin the time period is included. TSH reflex Free T4 1.65 0.32 - 4.0 uIU/mL [facility] Blood 03/19/2025 11:0 3 AM EST 03/19/2025 1:04 PM EST us Daniela Salmon MD LAB BLOOD ORDERABLES Final Resul t [facility] [address] [place] [phone] * (ABNORMAL) CBC auto differential (03/19/2025 11:03 AM EST) Only the most recent of2 resultswithin the time period is included. White Blood Count 7.8 4.8 - 10.8 X10*3/uL [facility] Red Blood Count 3.88(L) 4.20 - 5.50 X10*6/uL [facility] Hemoglobin 12.0 12.0 - 16.0 g/dl [facility] Hematocrit 36.5(L) 37.0 - 47.0 % [facility] Mean Corpuscular Volume 94.1 80.0 - 98.0 fL [facility] Mean Corpuscular Hemoglobin 30.9 27.0 - 33.0 pg [facility] Mean Corpuscular HGB Conc 32.9 31.0 - 35.0 g/dl [facility] Red Cell Distribution Width 14.0 11.0 - 16.0 % [facility] Platelet Count 234 160 - 400 X10*3/uL [facility] Mean Platelet Volume 11.0 9.4 - 12.3 fL [facility] Neutrophils Percent Auto 65.9 45 - 73 % [facility] Imm Gran Pct Auto 0.1 0.0 - 0.4 % [facility] Lymphocytes Percent Auto 26.4 20 - 40 % [facility] Monocytes Percent Auto 3.6 2 - 11 % [facility] Eosinophils Percent Auto 3.2 0 - 4 % [facility] Basophils Percent Auto 0.8 0 - 2 % [facility] NRBC Pct Auto 0.0 0.0 - 0.2 /100WBC [facility] Neutrophils Absolute Auto 5.1 2.0 - 8.3 x10*3/uL [facility] Imm Gran Abs Auto 0.01 0.00 - 0.03 X10*3/uL [facility] Lymphocytes Absolute Auto 2.1 1.2 - 4.9 X10*3/uL [facility] Monocytes Absolute Auto 0.3 0.1 - 1.2 X10*3/uL [facility] Eosinophils Absolute Auto 0.3 0.0 - 0.4 X10*3/uL [facility] Basophils Absolute Auto 0.1 0.0 - 0.2 X10*3/uL [facility] NRBC Abs Auto 0.000 0.0 - 0.012 X10*3/uL [facility] Blood Venous blood specimen / Unknown 03/19/2025 11:03 AM EST 03/19/2025 1:04 PM EST Daniela Salmon MD LAB BLOOD ORDERABLES Final Resul t Performing Organization Address City/[facility] Co de Phone Number [facility] [address] [place] [phone] * Iron And Total Iron Binding Capacity (03/19/2025 11:03 AM EST) Only the most recent of2 resultswithin the time period is included. Iron 102 30 - 160 mcg/dL [facility] Total Iron Binding Capacity 248 228 - 428 mcg/dL [facility] Percent Iron Saturation 41 15 - 50 % [facility] Unsaturated Iron Binding 146 ug/dL [facility] Blood Venous blood specimen / Unknown 03/19/2025 11:03 AM EST 03/19/2025 1:04 PM EST us Daniela Salmon MD LAB BLOOD ORDERABLES Final Resul t Performing Organization Address [facility] Co de Phone Number [facility] [address] [place] [phone] * Reticulocyte Count (03/19/2025 11:03 AM EST) Only the most recent of2 resultswithin the time period is included. Reticulocytes Absolute 0.039 0.026 - 0.095 X10*6/uL [facility] Immature Retic Fraction 8.5 3.0 - 15.9 % [facility] Retic HGB Equivalent 34.9 30.0 - 35.0 pg [facility] Reticulocyte Percent 1.0 0.5 - 1.8 % [facility] Blood Venous blood specimen / Unknown 03/19/2025 11:03 AM EST 03/19/2025 1:04 PM EST Daniela Salmon MD LAB BLOOD ORDERABLES Final Resul t Performing Organization Address [facility] Co de Phone Number [facility] [address] [place] [phone] * Magnesium (03/19/2025 11:03 AM EST) Only the most recent of2 resultswithin the time period is included. Magnesium 2.1 1.6 - 2.6 mg/dL [facility] Blood Venous blood specimen / Unknown 03/19/2025 11:03 AM EST 03/19/2025 1:04 PM EST Daniela Salmon MD LAB BLOOD ORDERABLES Final Resul t Performing Organization Address [facility] de Phone Number [facility] [address] [place] [phone] * Ferritin (03/19/2025 11:03 AM EST) Only the most recent of2 resultswithin the time period is included. Ferritin 37 10 - 250 ng/mL [facility] Blood Venous blood specimen / Unknown 03/19/2025 11:03 AM EST 03/19/2025 1:04 PM EST Daniela Salmon MD LAB BLOOD ORDERABLES Final Resul t Performing Organization Address [facility] de Phone Number [facility] [address] [place] [phone] * (ABNORMAL) Basic Metabolic Panel (03/19/2025 11:03 AM EST) Only the most recent of2 resultswithin the time period is included. Sodium 140 135 - 145 mmol/L [facility] Potassium 4.1 3.3 - 5.1 mmol/L [facility] Chloride 108 96 - 108 mmol/L [facility] Carbon Dioxide 25 22 - 29 mmol/L [facility] Anion Gap 11(L) 12 - 20 [facility] Urea Nitrogen (BUN) 8(L) 9 - 16 mg/dL [facility] Creatinine, Serum 0.70 0.5 - 1.4 mg/dL [facility] Estimated Glomerular Filt Rate >60 [facility] Comment:Chronic Kidney Disea se: Estimated GFR < 60 mL/min/1.82v7Jphwrc Kidney Disease: Estimated GFR < 15 mL/min/1.73m2 Glucose 81 60 - 115 mg/dL [facility] Calcium 9.2 8.4 - 10.2 mg/dL [facility] Blood Venous blood specimen / Unknown 03/19/2025 11:03 AM EST 03/19/2025 1:04 PM EST us Daniela Salmon MD LAB BLOOD ORDERABLES Final Resul t [facility] [address] [place] [address] [phone] * Hepatic Function Panel (01/23/2025 4:20 PM EDT) Bilirubin, Total 0.2 0.0 - 1.0 mg/dL [facility] Bilirubin, Direct <0.2 0.0 - 0.5 mg/dL [facility] Aspartate Amino Transferase 18 5 - 31 U/L [facility] Alanine Aminotransferase 19 0 - 31 U/L [facility] Total Protein 7.4 6.5 - 8.0 g/dL [facility] Albumin Level 4.5 3.5 - 5.0 g/dL [facility] Alkaline Phosphatase 83 39 - 117 U/L [facility] Blood Venous blood specimen / Unknown 01/23/2025 4:20 PM EDT 01/23/2025 4:20 PM EDT us Daniela Salmon MD LAB BLOOD ORDERABLES Final Resul t [facility] [address] [place] [phone] * BI Mammogram Screen w/ Ahmet w/ Implants Maynor (01/23/2025 3:53 PM EDT) Anatomical Region Laterality Modality Mammography 01/23/2025 3:5 3 PM EDT Narrative 01/29/2025 5:42 PM EDT [facility] [address] [place] [address] Mammography Report Signed Patient: Yanely Hebert MR#: [id number] : 1980 Acct:[id number] Age/Sex: 44 / F ADM Date: 01/23/25 Loc: HOEdgardoMAMMArnie Attending Dr: Daniela Salmon MD Ordering Physician: Daniela Salmon MD Results: 2Benign Date of Service: 01/23/25 Follow Up: 1 Year From Orig ina Mammogram Procedure(s): MM tomosynthesis screen imp BI Accession Number(s): [id number] cc: Daniela Salmon MD Reason For Exam: [...] 01/29/25 1739 DD/ 1553 TD/TT: 01/23/25 1600 Medium Cycle Salesperson: Procedure Note Donotuseinterpreter, Image - 01/29/2025 [place] [facility] [address] Sanchez, [place] [address] Mammography Report Signed Patient: Filiberto HebertR#: [id number] : 1980Acct:[id number] Age/Sex: 44 / FADM Date: 01/23/25 Loc: HOEdgardoMAMMO Attending Dr: Daniela Salmon MD Ordering Physician: Daniela Salmon MDResults: 2Benign Date of Service: 01/23/25Follow Up: 1 Year From Orig inal Mammogram Procedure(s): MM tomosynthesis screen imp BI Accession Number(s): [id number] cc: Daniela Salmon MD Reason For Exam: [...] Alina Pryor DO 01/29/2025 05:39 PM EDT Dictated By: Alina Pryor DO Signed By: <Electronically signed by Alina Pryor DO in OV> 01/29/25 1739 DD/ 1553 TD/TT: 01/23/25 1600 Medium Cycle Salesperson: Daniela Salmon MD IMG BI PROCEDURES Final Result * (ABNORMAL) Lipid Panel, Standard (05/13/2024 9:48 AM EST) Triglycerides 107 <150 mg/dL [facility] Comment:Desirable Triglyceri de: less than 150 mg/dLBorderline High Triglyceride 150-199 mg/dLHigh Triglyceride: 200-499 mg/dLVery High Triglyceride: greater than or equal to 5OO mg/dL Cholesterol 182 <200 mg/dL [facility] Comment:Desirable Cholestero l: less than 200 mg/dLBorderline High Cholesterol: 200-239 mg/dLHigh Cholesterol: greater than 239 mg/dL LDL Cholesterol Calculated 121(H) <100 mg/dL [facility] Comment:Desirable LDL: less than 100 mg/dLNear Optimal/Above Optimal LDL: 110- 129 mg/dLBorderline High LDL: 130-159 mg/dLHigh LDL: 160-189 mg/dLVery High LDL: greater than or equal to 190 mg/dL HDL Cholesterol 40(L) >40 mg/dL [facility] Comment:Desirable HDL: great er than 40 mg/dL Note: This HDL assay may give artificially low results in patients with liver disease. 05/13/2024 9:48 AM EST 05/13/2024 9:48 AM EST Daniela Salmon MD LAB BLOOD ORDERABLES Final Resul t [facility] [address] [place] [phone] * Hm Colonoscopy (05/05/2023) Colonoscopy Normal Normal us Historical Provider HEALTH MAINTENANCE Final Result * HEPATITIS C AB W/REFL TO HCV RNA, QN, PCR (11/19/2020 11:52 AM EDT) HEPATITIS C ANTIBODY NON-REACT CHELSIE NON-REACT CHELSIE [facility] INDEX 0.02 <1.00 [facility] Comment: HCV antibody was non-reactive. There is no laboratory evidence of HCV infection. In most cases, no further action is required. However, if recent HCV exposure is suspected, a test for HCV RNA (test code 40127) is suggested. For additional information please refer to http://[employer]ClickBus/faq/TUO21y2 (This link is being provided for informational/ educational purposes only.) 11/19/2020 11:5 2 AM EDT Daniela Salmon MD HISTORICAL/NON ORDERABLE LABS Fi nal Result [facility] [address] * HIV 1/2 ANTIGEN/ANTIBODY,FOURTH GENERATION W/RFL (11/19/2020 11:52 AM EDT) HIV-1/2 ANTIGEN AND ANTIBODIES, 4TH GENERATION W/ REFLEX NON-REACT CHELSIE NON-REACT CHELSIE [facility] Comment: HIV-1 antigen and HIV-1/HIV-2 [...] purpose. For additional information please refer to http://[employer]Bus/faq/UFP768 (This link is being provided for informational/ educational purposes only.) The performance of this assay has not been clinically validated in patients less than 2 years old. 11/19/2020 11:5 2 AM EDT Daniela Salmon MD LAB BLOOD ORDERABLES Final Resul t [facility] [address] * Pap Smear (03/27/2020) Pap Negative for intraephithelial lesion or malignancy Negative for intraephithelial lesion or malignancy, Other HPV Undetected Undetected, Indeterminate, Quantitative, Not Detected Historical Provider HEALTH MAINTENANCE Final Result from Last 3 Months or Most Recently Relevant to Health Maintenance [place] [address] [facility] [place] [address] [place] [address] Care Teams Joss House Keeper Relationship Specialty Start Date End Date Daniela Salmon MD [address] [place] [phone] PCP - General Family Medicine 06/19/13
--- OUTSIDE RECORDS SUMMARY | 2025-04-25 14:47 | XMS_ITS | Patient Health Record ---
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 Name Role Phone Daniela Salmon Primary Care Provider ANNALEE Watt Unavailable [phone] Allergies Allergen (clinical drug ingredient) Drug/Non Drug Allergy documented on EMR Reaction Allergy Type Onset Date Status omeprazole PriLOSEC Unknown Drug Allergy Active Reason For Referral No Information Medications Medication SIG (Take, Route, Frequency, Duration) Notes Start Date End Date Status Zepbound 5 MG/0.5ML Solution Auto-injector inject 5mg Subcutaneous once weekly; Duration: 28 days 04/02/2025 Active Problems Problem Type SNOMED Code ICD Code Onset Dates Problem Status W/U Status Risk Notes Problem Anxiety disorder (177311710) Anxiety disorder, unspecified (F41.9) Active confirmed Problem Elevated blood pressure reading without diagnosis of hypertension (084051441) Elevated BP without diagnosis of hypertension (R03.0) Active confirmed Problem Overweight (449847615) Overweight (BMI 25.0-29.9) (E66.3) Active confirmed Problem Depression (159534700) Depression, unspecified (F32.A) Active confirmed Problem Gastric sleeve (physical object) (553640685) H/O gastric sleeve (Z90.3) Active confirmed Problem Obstructive sleep apnea syndrome (48017462) HILTON on CPAP (G47.33) Active confirmed Problem History of obesity (016099417) History of obesity (Z86.39) Active confirmed Vital Signs Heart Rate 76 /min 04/02/2025 Oximetry 98 % 04/02/2025 Blood pressure diastolic 84 mm Hg 04/02/2025 Height 63 in 04/02/2025 Blood pressure systolic 128 mm Hg 04/02/2025 Weight 130.9 lbs 04/02/2025 BMI 23.19 kg/m2 04/02/2025 Encounters Encounter Location Date Provider Diagnosis [facility] [address] 05/01/2024 ANNALEE BRITTON Overweight (BMI 25.0-29.9) E66.3 ; BMI 28.0-28.9,adult Z68.28 ; HILTON on CPAP G47.33 ; Elevated BP without diagnosis of hypertension R03.0 ; Anxiety disorder, unspecified F41.9 ; Depression, unspecified F32.A ; H/O gastric sleeve Z90.3 and Nutritional counseling Z71.3 [facility] [address] [id number] 05/31/2024 ANNALEE BRITTON Overweight (BMI 25.0-29.9) E66.3 ; BMI 27.0-27.9,adult Z68.27 ; HILTON on CPAP G47.33 ; H/O gastric sleeve Z90.3 and Nutritional counseling Z71.3 [facility] [address] [phone] 07/12/2024 ANANLEE BRITTON Overweight (BMI 25.0-29.9) E66.3 ; BMI 25.0-25.9,adult Z68.25 ; HILTON on CPAP G47.33 ; H/O gastric sleeve Z90.3 and Nutritional counseling Z71.3 [facility] [address] 08/16/2024 ANNALEE BRITTON Overweight (BMI 25.0-29.9) E66.3 ; BMI 25.0-25.9,adult Z68.25 ; HILTON on CPAP G47.33 ; H/O gastric sleeve Z90.3 and Nutritional counseling Z71.3 [facility] [address] 09/20/2024 ANNALEE REBA History of obesity Z86.39 ; BMI 24.0-24.9, adult Z68.24 ; HILTON on CPAP G47.33 ; H/O gastric sleeve Z90.3 ; Nutritional counseling Z71.3 and Encounter for examination of blood pressure without abnormal findings Z01.30 [facility] [address] [phone] 11/01/2024 ANNALEE STRASBURG BMI 23.0-23.9, adult Z68.23 ; History of obesity Z86.39 ; HILTON on CPAP G47.33 ; H/O gastric sleeve Z90.3 ; Nutritional counseling Z71.3 and Encounter for examination of blood pressure without abnormal findings Z01.30 [facility] [address] [address] 12/13/2024 ANNALEE STRASBURG BMI 22.0-22.9, adult Z68.22 ; HILTON on CPAP G47.33 ; History of obesity Z86.39 ; H/O gastric sleeve Z90.3 ; Nutritional counseling Z71.3 and Encounter for examination of blood pressure without abnormal findings Z01.30 [facility] [address] [address] 01/24/2025 ANNALEE STRASBURG BMI 22.0-22.9, adult Z68.22 ; HILTON on CPAP G47.33 ; H/O gastric sleeve Z90.3 ; History of obesity Z86.39 ; Nutritional counseling Z71.3 and Encounter for examination of blood pressure without abnormal findings Z01.30 [facility] [address] [address] 04/02/2025 ANNALEE STRASBURG BMI 23.0-23.9, adult Z68.23 ; HILTON on CPAP G47.33 ; H/O gastric sleeve Z90.3 ; History of obesity Z86.39 ; Nutritional counseling Z71.3 and Encounter for examination of blood pressure without abnormal findings Z01.30 [facility] [address] [address] 09/21/2024 [facility] Assessments Encounter Date Diagnosis (ICD Code) Assessment Notes Treatment Notes Treatment Clinical Notes Section Notes 05/01/2024 BMI 28.0-28.9,adult (ICD-10 - Z68.28) Yanely [...] reviewed. Dictation completed with the use of [employer] voice recognition software, prone to medical misidentifications [...] reviewed. Dictation completed with the use of [employer] voice recognition software, prone to medical misidentifications [...] reviewed. Dictation completed with the use of [employer] voice recognition software, prone to medical misidentifications [...] reviewed. Dictation completed with the use of [employer] voice recognition software, prone to medical misidentifications [...] reviewed. Dictation completed with the use of [employer] voice recognition software, prone to medical misidentifications [...] reviewed. Dictation completed with the use of [employer] voice recognition software, prone to medical misidentifications [...] prioritization of protein intake. Consider meeting with hook puller. Recommending daily multivitamin. Plan to continue Zepbound [...] arise. Case discussed with collaborating physician Brown Moerno who has reviewed the assessment/plan. Chart, medications, labs, and vital signs reviewed. Dictation completed with the use of [employer] voice recognition software, prone to medical misidentifications [...] prioritization of protein intake. Consider meeting with hook puller. Recommending daily multivitamin. Plan to continue Zepbound [...] reviewed. Dictation completed with the use of [employer] voice recognition software, prone to medical misidentifications [...] prioritization of protein intake. Consider meeting with hook puller. Recommending daily multivitamin. Plan to continue Zepbound [...] reviewed. Dictation completed with the use of [employer] voice recognition software, prone to medical misidentifications [...] reviewed. Dictation completed with the use of [employer] voice recognition software, prone to medical misidentifications [...] reviewed. Dictation completed with the use of [employer] voice recognition software, prone to medical misidentifications and grammatical errors. All errors are unintentional. Although the practitioner does try to identify and correct errors, some may be present. Please do not hesitate to contact the practitioner for clarification. Total time was 30 minutes spent with >50% on coordination of care and patient education. 01/24/2025 BMI 22.0-22.9, adult (ICD-10 - Z68.22) Yanely is a 44-year-old female with a PMH of gastric sleeve, HILTON requiring CPAP, elevated BP without dx of HTN, anxiety, depression that presents for weight management follow-up. Reviewed [facility] holistic [facility] medical approach to weight loss with emphasis on lifestyle modification. 01/24/2025: Weight: 127, BMI: 22.5. SECA reviewed, reveals loss of fat mass and improvement in muscle mass. Overall improved body composition. Patient would like to maintain current weight. She is encouraged to continue making health-conscious diet choices and prioritizing protein intake. Discussed importance of maintaining active lifestyle. Plan to continue Zepbound 2.5 mg SC every 10-14 days. Follow-up in 4 to 6 weeks. 12/13/2024: Weight: 125.8, BMI: 22.3 (-7lbs) 11/01/2024: Weight: 132, BMI: 23.4. (-6lbs) 09/20/2024: [...] reviewed. Dictation completed with the use of [employer] voice recognition software, prone to medical misidentifications and grammatical errors. All errors are unintentional. Although the practitioner does try to identify and correct errors, some may be present. Please do not hesitate to contact the practitioner for clarification. Total time was 30 minutes spent with >50% on coordination of care and patient education. 04/02/2025 BMI 23.0-23.9, adult (ICD-10 - Z68.23) Yanely is a 45-year-old female with a PMH of gastric sleeve, HILTON requiring CPAP, elevated BP without dx of HTN, anxiety, depression that presents for weight management follow-up. Reviewed [facility] medical approach to weight loss with emphasis on lifestyle modification. 04/02/2025: Weight: 130.9, BMI: 23.2 (3lbs) SECA reviewed, reveals fat gain. Patient encouraged to continue making health-conscious diet choices and prioritizing protein intake. Discussed importance of increasing hydration, goal 40 ounces/day. Additionally discussed the importance of increasing current level of physical activity as tolerated. Weight trending up since transition to 2.5 mg, plan to increase dose of Zepbound to 5 mg SC every other week for maintenance dosing. Patient would like to maintain 130 pounds. 01/24/2025: Weight: 127, BMI: 22.5. 12/13/2024: Weight: 125.8, BMI: 22.3 (-7lbs) 11/01/2024: Weight: 132, BMI: 23.4. (-6lbs) 09/20/2024: [...] reviewed. Dictation completed with the use of [employer] voice recognition software, prone to medical misidentifications and grammatical errors. All errors are unintentional. Although the practitioner does try to identify and correct errors, some may be present. Please do not hesitate to contact the practitioner for clarification. Total time was 30 minutes spent with >50% on coordination of care and patient education. 04/02/2025 HILTON on CPAP (ICD-10 - G47.33) Yanely is a 45-year-old female with a PMH of gastric sleeve, HILTON requiring CPAP, elevated BP without dx of HTN, anxiety, depression that presents for weight management follow-up. Reviewed [facility] holistic and medical approach to weight loss with emphasis on lifestyle modification. 04/02/2025: Weight: 130.9, BMI: 23.2 (3lbs) SECA reviewed, reveals fat gain. Patient encouraged to continue making health-conscious diet choices and prioritizing protein intake. Discussed importance of increasing hydration, goal 40 ounces/day. Additionally discussed the importance of increasing current level of physical activity as tolerated. Weight trending up since transition to 2.5 mg, plan to increase dose of Zepbound to 5 mg SC every other week for maintenance dosing. Patient would like to maintain 130 pounds. 01/24/2025: Weight: 127, BMI: 22.5. 12/13/2024: Weight: 125.8, BMI: 22.3 (-7lbs) 11/01/2024: Weight: 132, BMI: 23.4. (-6lbs) 09/20/2024: [...] reviewed. Dictation completed with the use of [employer] voice recognition software, prone to medical misidentifications and grammatical errors. All errors are unintentional. Although the practitioner does try to identify and correct errors, some may be present. Please do not hesitate to contact the practitioner for clarification. Total time was 30 minutes spent with >50% on coordination of care and patient education. 01/24/2025 HILTON on CPAP (ICD-10 - G47.33) Yanely is a 44-year-old female with a PMH of gastric sleeve, HILTON requiring CPAP, elevated BP without dx of HTN, anxiety, depression that presents for weight management follow-up. Reviewed [facility] holistic [facility] medical approach to weight loss with emphasis on lifestyle modification. 01/24/2025: Weight: 127, BMI: 22.5. SECA reviewed, reveals loss of fat mass and improvement in muscle mass. Overall improved body composition. Patient would like to maintain current weight. She is encouraged to continue making health-conscious diet choices and prioritizing protein intake. Discussed importance of maintaining active lifestyle. Plan to continue Zepbound 2.5 mg SC every 10-14 days. Follow-up in 4 to 6 weeks. 12/13/2024: Weight: 125.8, BMI: 22.3 (-7lbs) 11/01/2024: Weight: 132, BMI: 23.4. (-6lbs) 09/20/2024: [...] reviewed. Dictation completed with the use of [employer] voice recognition software, prone to medical misidentifications [...] reviewed. Dictation completed with the use of [employer] voice recognition software, prone to medical misidentifications [...] prioritization of protein intake. Consider meeting with hook puller. Recommending daily multivitamin. Plan to continue Zepbound [...] reviewed. Dictation completed with the use of [employer] voice recognition software, prone to medical misidentifications [...] reviewed. Dictation completed with the use of [employer] voice recognition software, prone to medical misidentifications [...] reviewed. Dictation completed with the use of [employer] voice recognition software, prone to medical misidentifications [...] prioritization of protein intake. Consider meeting with hook puller. Recommending daily multivitamin. Plan to continue Zepbound [...] reviewed. Dictation completed with the use of [employer] voice recognition software, prone to medical misidentifications [...] reviewed. Dictation completed with the use of [employer] voice recognition software, prone to medical misidentifications [...] reviewed. Dictation completed with the use of [employer] voice recognition software, prone to medical misidentifications [...] reviewed. Dictation completed with the use of [employer] voice recognition software, prone to medical misidentifications [...] reviewed. Dictation completed with the use of [employer] voice recognition software, prone to medical misidentifications [...] reviewed. Dictation completed with the use of [employer] voice recognition software, prone to medical misidentifications [...] reviewed. Dictation completed with the use of [employer] voice recognition software, prone to medical misidentifications [...] prioritization of protein intake. Consider meeting with hook puller. Recommending daily multivitamin. Plan to continue Zepbound [...] reviewed. Dictation completed with the use of [employer] voice recognition software, prone to medical misidentifications [...] prioritization of protein intake. Consider meeting with hook puller. Recommending daily multivitamin. Plan to continue Zepbound [...] reviewed. Dictation completed with the use of [employer] voice recognition software, prone to medical misidentifications [...] reviewed. Dictation completed with the use of [employer] voice recognition software, prone to medical misidentifications [...] reviewed. Dictation completed with the use of [employer] voice recognition software, prone to medical misidentifications [...] reviewed. Dictation completed with the use of [employer] voice recognition software, prone to medical misidentifications and grammatical errors. All errors are unintentional. Although the practitioner does try to identify and correct errors, some may be present. Please do not hesitate to contact the practitioner for clarification. Total time was 30 minutes spent with >50% on coordination of care and patient education. 01/24/2025 H/O gastric sleeve (ICD-10 - Z90.3) Yanely is a 44-year-old female with a PMH of gastric sleeve, HILTON requiring CPAP, elevated BP without dx of HTN, anxiety, depression that presents for weight management follow-up. Reviewed [facility] holistic and medical approach to weight loss with emphasis on lifestyle modification. 01/24/2025: Weight: 127, BMI: 22.5. SECA reviewed, reveals loss of fat mass and improvement in muscle mass. Overall improved body composition. Patient would like to maintain current weight. She is encouraged to continue making health-conscious diet choices and prioritizing protein intake. Discussed importance of maintaining active lifestyle. Plan to continue Zepbound 2.5 mg SC every 10-14 days. Follow-up in 4 to 6 weeks. 12/13/2024: Weight: 125.8, BMI: 22.3 (-7lbs) 11/01/2024: Weight: 132, BMI: 23.4. (-6lbs) 09/20/2024: [...] reviewed. Dictation completed with the use of [employer] voice recognition software, prone to medical misidentifications and grammatical errors. All errors are unintentional. Although the practitioner does try to identify and correct errors, some may be present. Please do not hesitate to contact the practitioner for clarification. Total time was 30 minutes spent with >50% on coordination of care and patient education. 04/02/2025 H/O gastric sleeve (ICD-10 - Z90.3) Yanely is a 45-year-old female with a PMH of gastric sleeve, HILTON requiring CPAP, elevated BP without dx of HTN, anxiety, depression that presents for weight management follow-up. Reviewed [facility] holistic and medical approach to weight loss with emphasis on lifestyle modification. 04/02/2025: Weight: 130.9, BMI: 23.2 (3lbs) SECA reviewed, reveals fat gain. Patient encouraged to continue making health-conscious diet choices and prioritizing protein intake. Discussed importance of increasing hydration, goal 40 ounces/day. Additionally discussed the importance of increasing current level of physical activity as tolerated. Weight trending up since transition to 2.5 mg, plan to increase dose of Zepbound to 5 mg SC every other week for maintenance dosing. Patient would like to maintain 130 pounds. 01/24/2025: Weight: 127, BMI: 22.5. 12/13/2024: Weight: 125.8, BMI: 22.3 (-7lbs) 11/01/2024: Weight: 132, BMI: 23.4. (-6lbs) 09/20/2024: [...] reviewed. Dictation completed with the use of [employer] voice recognition software, prone to medical misidentifications and grammatical errors. All errors are unintentional. Although the practitioner does try to identify and correct errors, some may be present. Please do not hesitate to contact the practitioner for clarification. Total time was 30 minutes spent with >50% on coordination of care and patient education. 01/24/2025 History of obesity (ICD-10 - Z86.39) Yanely is a 44-year-old female with a PMH of gastric sleeve, HILTON requiring CPAP, elevated BP without dx of HTN, anxiety, depression that presents for weight management follow-up. Reviewed [facility] holistic and medical approach to weight loss with emphasis on lifestyle modification. 01/24/2025: Weight: 127, BMI: 22.5. SECA reviewed, reveals loss of fat mass and improvement in muscle mass. Overall improved body composition. Patient would like to maintain current weight. She is encouraged to continue making health-conscious diet choices and prioritizing protein intake. Discussed importance of maintaining active lifestyle. Plan to continue Zepbound 2.5 mg SC every 10-14 days. Follow-up in 4 to 6 weeks. 12/13/2024: Weight: 125.8, BMI: 22.3 (-7lbs) 11/01/2024: Weight: 132, BMI: 23.4. (-6lbs) 09/20/2024: [...] reviewed. Dictation completed with the use of [employer] voice recognition software, prone to medical misidentifications and grammatical errors. All errors are unintentional. Although the practitioner does try to identify and correct errors, some may be present. Please do not hesitate to contact the practitioner for clarification. Total time was 30 minutes spent with >50% on coordination of care and patient education. 04/02/2025 Nutritional counseling (ICD-10 - Z71.3) Yanely is a 45-year-old female with a PMH of gastric sleeve, HILTON requiring CPAP, elevated BP without dx of HTN, anxiety, depression that presents for weight management follow-up. Reviewed [facility] holistic and medical approach to weight loss with emphasis on lifestyle modification. 04/02/2025: Weight: 130.9, BMI: 23.2 (3lbs) SECA reviewed, reveals fat gain. Patient encouraged to continue making health-conscious diet choices and prioritizing protein intake. Discussed importance of increasing hydration, goal 40 ounces/day. Additionally discussed the importance of increasing current level of physical activity as tolerated. Weight trending up since transition to 2.5 mg, plan to increase dose of Zepbound to 5 mg SC every other week for maintenance dosing. Patient would like to maintain 130 pounds. 01/24/2025: Weight: 127, BMI: 22.5. 12/13/2024: Weight: 125.8, BMI: 22.3 (-7lbs) 11/01/2024: Weight: 132, BMI: 23.4. (-6lbs) 09/20/2024: [...] reviewed. Dictation completed with the use of [employer] voice recognition software, prone to medical misidentifications and grammatical errors. All errors are unintentional. Although the practitioner does try to identify and correct errors, some may be present. Please do not hesitate to contact the practitioner for clarification. Total time was 30 minutes spent with >50% on coordination of care and patient education. 04/02/2025 History of obesity (ICD-10 - Z86.39) Yanely is a 45-year-old female with a PMH of gastric sleeve, HILTON requiring CPAP, elevated BP without dx of HTN, anxiety, depression that presents for weight management follow-up. Reviewed [facility] holistic and medical approach to weight loss with emphasis on lifestyle modification. 04/02/2025: Weight: 130.9, BMI: 23.2 (3lbs) SECA reviewed, reveals fat gain. Patient encouraged to continue making health-conscious diet choices and prioritizing protein intake. Discussed importance of increasing hydration, goal 40 ounces/day. Additionally discussed the importance of increasing current level of physical activity as tolerated. Weight trending up since transition to 2.5 mg, plan to increase dose of Zepbound to 5 mg SC every other week for maintenance dosing. Patient would like to maintain 130 pounds. 01/24/2025: Weight: 127, BMI: 22.5. 12/13/2024: Weight: 125.8, BMI: 22.3 (-7lbs) 11/01/2024: Weight: 132, BMI: 23.4. (-6lbs) 09/20/2024: [...] reviewed. Dictation completed with the use of [employer] voice recognition software, prone to medical misidentifications [...] reviewed. Dictation completed with the use of [employer] voice recognition software, prone to medical misidentifications [...] reviewed. Dictation completed with the use of [employer] voice recognition software, prone to medical misidentifications [...] prioritization of protein intake. Consider meeting with hook puller. Recommending daily multivitamin. Plan to continue Zepbound [...] reviewed. Dictation completed with the use of [employer] voice recognition software, prone to medical misidentifications [...] prioritization of protein intake. Consider meeting with hook puller. Recommending daily multivitamin. Plan to continue Zepbound [...] reviewed. Dictation completed with the use of [employer] voice recognition software, prone to medical misidentifications [...] reviewed. Dictation completed with the use of [employer] voice recognition software, prone to medical misidentifications [...] reviewed. Dictation completed with the use of [employer] voice recognition software, prone to medical misidentifications [...] reviewed. Dictation completed with the use of [employer] voice recognition software, prone to medical misidentifications [...] reviewed. Dictation completed with the use of [employer] voice recognition software, prone to medical misidentifications [...] prioritization of protein intake. Consider meeting with hook puller. Recommending daily multivitamin. Plan to continue Zepbound [...] reviewed. Dictation completed with the use of [employer] voice recognition software, prone to medical misidentifications [...] prioritization of protein intake. Consider meeting with hook puller. Recommending daily multivitamin. Plan to continue Zepbound [...] reviewed. Dictation completed with the use of [employer] voice recognition software, prone to medical misidentifications [...] reviewed. Dictation completed with the use of [employer] voice recognition software, prone to medical misidentifications [...] reviewed. Dictation completed with the use of [employer] voice recognition software, prone to medical misidentifications and grammatical errors. All errors are unintentional. Although the practitioner does try to identify and correct errors, some may be present. Please do not hesitate to contact the practitioner for clarification. Total time was 30 minutes spent with >50% on coordination of care and patient education. 01/24/2025 Nutritional counseling (ICD-10 - Z71.3) Yanely is a 44-year-old female with a PMH of gastric sleeve, HILTON requiring CPAP, elevated BP without dx of HTN, anxiety, depression that presents for weight management follow-up. Reviewed [facility] holistic and medical approach to weight loss with emphasis on lifestyle modification. 01/24/2025: Weight: 127, BMI: 22.5. SECA reviewed, reveals loss of fat mass and improvement in muscle mass. Overall improved body composition. Patient would like to maintain current weight. She is encouraged to continue making health-conscious diet choices and prioritizing protein intake. Discussed importance of maintaining active lifestyle. Plan to continue Zepbound 2.5 mg SC every 10-14 days. Follow-up in 4 to 6 weeks. 12/13/2024: Weight: 125.8, BMI: 22.3 (-7lbs) 11/01/2024: Weight: 132, BMI: 23.4. (-6lbs) 09/20/2024: [...] reviewed. Dictation completed with the use of [employer] voice recognition software, prone to medical misidentifications and grammatical errors. All errors are unintentional. Although the practitioner does try to identify and correct errors, some may be present. Please do not hesitate to contact the practitioner for clarification. Total time was 30 minutes spent with >50% on coordination of care and patient education. 04/02/2025 Encounter for examination of blood pressure without abnormal findings (ICD-10 - Z01.30) Yanely is a 45-year-old female with a PMH of gastric sleeve, HILTON requiring CPAP, elevated BP without dx of HTN, anxiety, depression that presents for weight management follow-up. Reviewed [facility] holistic and medical approach to weight loss with emphasis on lifestyle modification. 04/02/2025: Weight: 130.9, BMI: 23.2 (3lbs) SECA reviewed, reveals fat gain. Patient encouraged to continue making health-conscious diet choices and prioritizing protein intake. Discussed importance of increasing hydration, goal 40 ounces/day. Additionally discussed the importance of increasing current level of physical activity as tolerated. Weight trending up since transition to 2.5 mg, plan to increase dose of Zepbound to 5 mg SC every other week for maintenance dosing. Patient would like to maintain 130 pounds. 01/24/2025: Weight: 127, BMI: 22.5. 12/13/2024: Weight: 125.8, BMI: 22.3 (-7lbs) 11/01/2024: Weight: 132, BMI: 23.4. (-6lbs) 09/20/2024: [...] reviewed. Dictation completed with the use of [employer] voice recognition software, prone to medical misidentifications and grammatical errors. All errors are unintentional. Although the practitioner does try to identify and correct errors, some may be present. Please do not hesitate to contact the practitioner for clarification. Total time was 30 minutes spent with >50% on coordination of care and patient education. 01/24/2025 Encounter for examination of blood pressure without abnormal findings (ICD-10 - Z01.30) Yanely is a 44-year-old female with a PMH of gastric sleeve, HILTON requiring CPAP, elevated BP without dx of HTN, anxiety, depression that presents for weight management follow-up. Reviewed [facility] holistic and medical approach to weight loss with emphasis on lifestyle modification. 01/24/2025: Weight: 127, BMI: 22.5. SECA reviewed, reveals loss of fat mass and improvement in muscle mass. Overall improved body composition. Patient would like to maintain current weight. She is encouraged to continue making health-conscious diet choices and prioritizing protein intake. Discussed importance of maintaining active lifestyle. Plan to continue Zepbound 2.5 mg SC every 10-14 days. Follow-up in 4 to 6 weeks. 12/13/2024: Weight: 125.8, BMI: 22.3 (-7lbs) 11/01/2024: Weight: 132, BMI: 23.4. (-6lbs) 09/20/2024: [...] reviewed. Dictation completed with the use of [employer] voice recognition software, prone to medical misidentifications [...] reviewed. Dictation completed with the use of [employer] voice recognition software, prone to medical misidentifications [...] reviewed. Dictation completed with the use of [employer] voice recognition software, prone to medical misidentifications [...] D,25-OH,TOTAL,IA 03/15/2024 Next Appt Details Provider Name:ANNALEE ROA Rachel, 05/10/2025 11:00:00 AM, [address] [facility], [facility] [address], [place], [address], Insurance Providers Payer Name Payer Address Payer Phone Subscriber Number Group Number Insured Name Patient Relationship to Insured Coverage Start Date Coverage End Date [facility] [address] [place] [address] [phone] [id number] HebertYanely Self - patient is the insured [id number] [...]
== END 2025-04-25 13:49 | disposition home or self-care (01) ==
LOC: HO.HSM 13:20
PROVIDERS: PCP Family Medicine; Visit Provider Psychiatry & Neurology Neurology
DX: G62.9 Polyneuropathy, unspecified (principal)
CPT/HCPCS: 99204